=== PATIENT | female | born 1950 | race Caucasian/White ===

== ENCOUNTER 2016-10-25 20:47 | Emergency (ER) | payer BC ==
--- NOTE | 2016-10-25 20:52 | ER Document Report ---
ED Medical Screen (RME) - General Stated Complaint: BACK PAIN Notes: Is a 66-year-old female who is currently in the midst of a workup for potential lesion in the brain through Energy she has a headache back pain and dyspnea today must bring her to the emergency room I greeted and performed a rapid initial assessment of this patient. Comprehensive ED assessment and evaluation of the patient, analysis of test results and completion of the medical decision making process will be conducted by additional ED providers. TRAVEL OUTSIDE OF THE [place] IN LAST 30 DAYS: No - Related Data Allergies/Adverse Reactions: Sulfa (Sulfonamide Antibiotics) Allergy (Severe, Verified 03/06/16 22:35) heart beats very fast NSAIDS (Non-Steroidal Anti-Inflamma [Nsaids] Allergy (Verified 03/06/16 22:35) Past Medical History - Social History Family history: None - Past Medical History Cardiac Medical History: Reports: Hx Hypercholesterolemia Pulmonary Medical History: Reports: Hx Asthma, Hx COPD Denies: Hx Tuberculosis Endocrine Medical History: Reports: Hx Hypothyroidism - After having her thyroid removed for cancer in October, Renal/ Medical History: Reports: Hx Kidney Stones Malignancy Medical History: Reports: Hx Breast Cancer GI Medical History: Reports: Hx Gastroesophageal Reflux Disease, Hx Hiatal Hernia Musculoskeltal Medical History: Reports Hx Arthritis, Reports Hx Multiple Sclerosis - per pt although the lp'S were negative Psychiatric Medical History: Reports: Hx Anxiety - This is based on reviewing her multiple ER visits. Past Surgical History: Reports: Hx Appendectomy, Hx Bowel Surgery, Hx Section, Hx Cholecystectomy, Hx Hysterectomy, Hx Mastectomy, Hx Orthopedic Surgery - left rotator, Hx Thyroid Surgery, Hx Urinary Tract Surgery - BLADDER POLYPS REMOVED - Immunizations Hx Diphtheria, Pertussis, Tetanus Vaccination: Yes
[2016-10-25] MEDS ORDERED: NORMAL SALINE 1000 ML 100 ML IV PRN (20:53)
[2016-10-25 21:18] LABS: APPEARANCE,URINE CLEAR; BILIRUBIN,URINE NEGATIVE (NEGATIVE); GLUCOSE, URINE NEGATIVE (NEGATIVE); KETONES,URINE NEGATIVE (NEGATIVE); LEUKOCYTE ESTERASE,URINE SMALL (NEGATIVE); NITRITE,URINE NEGATIVE (NEGATIVE); PROTEIN,URINE NEGATIVE (NEGATIVE); UROBILINOGEN,URINE NEGATIVE mg/dL (<2.0)
[2016-10-25 21:27] LABS: ABSOLUTE EOSINOPHILS # (AUTO) 0.3 10^3/uL (0.0-0.6); ABSOLUTE LYMPHOCYTES (AUTO) 2.8 10^3/uL (0.5-4.7); ABSOLUTE MONOCYTES (AUTO) 0.4 10^3/uL (0.1-1.4); ABSOLUTE NEUT (AUTO) 2.3 10^3/uL (1.7-8.2); BASOPHILS % (AUTO) 0.8 % (0-2); HEMATOCRIT 43.1 % (36.0-47.0); HEMOGLOBIN 14.3 g/dL (12.0-15.5); HGB HCT DIFFERENCE -0.2; LYMPHOCYTES % (AUTO) 48.1 % (13-45); MEAN CORPUSCULAR HEMOGLOBIN 31.6 pg (27.0-33.4); MEAN CORPUSCULAR HGB CONC 33.3 g/dL (32.0-36.0); MEAN CORPUSCULAR VOLUME 95 fl (80-97); MONOCYTES % (AUTO) 6.9 % (3-13); RED BLOOD COUNT 4.55 10^6/uL (3.72-5.28); RED CELL DISTRIBUTION WIDTH 13.4 % (11.5-14.0); SEGMENTED NEUTROPHILS % (AUTO) 39.2 % (42-78); WHITE BLOOD COUNT 5.9 10^3/uL (4.0-10.5)
[2016-10-25 21:32] LABS: ALANINE AMINOTRANSFERASE 36 U/L (9-52); ALKALINE PHOSPHATASE 89 U/L (38-126); ANION GAP 11 (5-19); ASPARTATE AMINO TRANSFERASE 29 U/L (14-36); BILIRUBIN,TOTAL 0.4 mg/dL (0.2-1.3); BLOOD UREA NITROGEN 32 mg/dL (7-20); CALCIUM 9.8 mg/dL (8.4-10.2); CARBON DIOXIDE 27 mmol/L (22-30); CHLORIDE 105 mmol/L (98-107); CREATININE RESULT 0.91 mg/dL (0.52-1.25); GLUCOSE 86 mg/dL (75-110); POTASSIUM 4.5 mmol/L (3.6-5.0); SODIUM 143.4 mmol/L (137-145); TOTAL PROTEIN 6.7 g/dL (6.3-8.2)
--- NOTE | 2016-10-25 22:05 | ER Document Report ---
ED General - General Chief Complaint: Back Pain Stated Complaint: BACK PAIN Time seen by provider: 22:05 Mode of Arrival: Ambulatory Information source: Patient TRAVEL OUTSIDE OF THE [place] IN LAST 30 DAYS: No - HPI Patient complains to provider of: back pain, sinus congestion Onset: Other - Chronic Onset/Duration: Persistent Quality of pain: Achy Severity: Moderate Pain Level: 3 Associated symptoms: Body/muscle aches, Chills, Sinus pain/drainage, Other - Cold legs Exacerbated by: Denies Relieved by: Denies Similar symptoms previously: Yes Recently seen / treated by doctor: Yes Notes: Patient is a 66-year-old female who presents to the emergency room with multiple complaints, none of which appear to be acute in nature, she reports that she has been followed by a neurologist at [place] and was diagnosed with likely MS a proximally one year ago but is not currently on any medication for this, she reports that 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, she reports that she has chronic sinus congestion and had an appointment to see an ENT this past Thursday which was canceled due to inclement weather, she reports a history of multiple UTIs, history of [place] spotted fever, is requesting several tests to be performed on her tonight including a Lyme titer, an ESR, CRP, and a spinal tap, stating that the neurologist did not do any of these tests on her previously and she is unsure why, patient states that she is "on the verge of a breakdown", she also reports that she has a follow-up with a urologist this week, at time of initial evaluation and in the triage area patient was requesting to be transferred to [place] immediately, however when I explained to her that that could not be done at the present time until an official diagnosis warranting transfer was made she was somewhat more cooperative, patient does report a history of multiple previous visits to specialist for these complaints and reports that they have been going on for over a year now, patient also reports that she feels as though she has decreased circulation to her lower extremities because she is always cold and she feels her legs are cold - Related Data Allergies/Adverse Reactions: Sulfa (Sulfonamide Antibiotics) Allergy (Severe, Verified 03/06/16 22:35) heart beats very fast NSAIDS (Non-Steroidal Anti-Inflamma [Nsaids] Allergy (Verified 03/06/16 22:35) Past Medical History - General Information source: Patient - Social History Smoking Status: Former Smoker Chew tobacco use (# tins/day): No Frequency of alcohol use: Rare Drug Abuse: None Family History: Reviewed & Not Pertinent Patient has suicidal ideation: No Patient has homicidal ideation: No - Past Medical History Cardiac Medical History: Reports: Hx Hypercholesterolemia Pulmonary Medical History: Reports: Hx Asthma, Hx COPD Denies: Hx Tuberculosis Endocrine Medical History: Reports: Hx Hypothyroidism - After having her thyroid removed for cancer in October, Renal/ Medical History: Reports: Hx Kidney Stones. Denies: Hx Peritoneal Dialysis Malignancy Medical History: Reports: Hx Breast Cancer GI Medical History: Reports: Hx Gastroesophageal Reflux Disease, Hx Hiatal Hernia Musculoskeltal Medical History: Reports Hx Arthritis, Reports Hx Multiple Sclerosis - per pt although the lp'S were negative Psychiatric Medical History: Reports: Hx Anxiety - This is based on reviewing her multiple ER visits. Past Surgical History: Reports: Hx Appendectomy, Hx Bowel Surgery, Hx Section, Hx Cholecystectomy, Hx Hysterectomy, Hx Mastectomy, Hx Orthopedic Surgery - left rotator, Hx Thyroid Surgery, Hx Urinary Tract Surgery - BLADDER POLYPS REMOVED - Immunizations Hx Diphtheria, Pertussis, Tetanus Vaccination: Yes Hx Pneumococcal Vaccination: 10/02/10 Review of Systems - Review of Systems Constitutional: Chills, Malaise EENT: See HPI Cardiovascular: No symptoms reported. denies: Chest pain Respiratory: No symptoms reported. denies: Short of breath Gastrointestinal: No symptoms reported. denies: Nausea, Vomiting Genitourinary: Dysuria, Frequency Female Genitourinary: No symptoms reported Musculoskeletal: See HPI, Back pain Skin: No symptoms reported Hematologic/Lymphatic: No symptoms reported Neurological/Psychological: No symptoms reported -: Yes All other systems reviewed and negative Physical Exam - Vital signs Vitals: Temp Pulse Resp BP Pulse Ox 97.1 F 51 L 18 95/55 L 97 10/25/16 23:45 10/25/16 23:45 10/25/16 23:45 10/25/16 23:45 10/25/16 23:45 Interpretation: Hypotensive, Bradycardic - General General appearance: Appears well, Alert In distress: None Notes: Tearful - HEENT Head: Normocephalic, Atraumatic Eyes: Normal Conjunctiva: Normal Extraocular movements intact: Yes Eyelashes: Normal Pupils: PERRL Mucous membranes: Normal - Respiratory Respiratory status: No respiratory distress Chest status: Nontender Breath sounds: Normal Chest palpation: Normal - Cardiovascular Rhythm: Regular Heart sounds: Normal auscultation Murmur: No - Abdominal Inspection: Normal Distension: No distension Bowel sounds: Normal Tenderness: Nontender Organomegaly: No organomegaly - Back Back: Normal, Nontender - Extremities General upper extremity: Normal inspection, Nontender, Normal color, Normal ROM , Normal temperature General lower extremity: Normal inspection, Nontender, Normal color, Normal ROM , Normal temperature, Normal weight bearing. No: Edema, Scott's sign Notes: Distal sensation and motor is intact with 2+ DP pulses bilaterally, feet are warm and dry, brisk capillary refill - Neurological Neuro grossly intact: Yes Cognition: Normal Orientation: AAOx4 Ricardo Coma Scale Eye Opening: Spontaneous Ricardo Coma Scale Verbal: Oriented Dardanelle Coma Scale Motor: Obeys Commands Ricardo Coma Scale Total: 15 Speech: Normal Motor strength normal: LUE, RUE, LLE, RLE Sensory: Normal - Psychological Associated symptoms: Tangential speech, Tearful - Skin Skin Temperature: Warm Skin Moisture: Dry Skin Color: Normal Course - Re-evaluation Re-evalutation: 10/26/16 01:01 Patient physical exam findings and laboratory findings unremarkable, her symptoms appear to be chronic in nature as she reports they've been going on for at least a year and she has seen additional list at [place] for these concerns , although she is concerned that certain tests were not performed by her neurologist I do not see an emergent need to perform some of these tests, including a lumbar puncture, in the emergency room, her labs were discussed with her and she was provided with a copy of the results for follow-up with her primary care provider and her specialists, and advised to return if symptoms worsen, patient acknowledges understanding and agreement with this plan - Vital Signs Vital signs: Temp Pulse Resp BP Pulse Ox 97.1 F 51 L 18 95/55 L 97 10/25/16 23:45 10/25/16 23:45 10/25/16 23:45 10/25/16 23:45 10/25/16 23:45 - Laboratory Result Diagrams: 10/25/16 21:00 10/25/16 21:00 Laboratory results interpreted by me: 10/25/16 10/25/16 10/25/16 21:00 21:00 21:05 Seg Neutrophils % 39.2 L Lymphocytes % 48.1 H BUN 32 H Ur Leukocyte Esterase SMALL H Urine Ascorbic Acid 40 H Discharge - Discharge Clinical Impression: Sinus congestion Back pain Qualifiers: Back pain location: thoracic back pain Chronicity: acute Back pain laterality: bilateral Qualified Code(s): M54.6 - Pain in thoracic spine Condition: Stable Disposition: HOME, SELF-CARE Instructions: Ice Packs ([facility]), Warm Packs ([facility]) Additional Instructions: Follow up with your primary care provider and your specialists in one to 2 days. Return to the emergency room immediately if symptoms worsen or any additional concerns. Referrals: CARLENE BAKER MD [Primary Care Provider] - Follow up as needed
[2016-10-25 23:48] VITALS: BP 95/55
== END 2016-10-25 23:45 | disposition home or self-care (01) ==
LOC: ER 20:47
DX: M54.6 Pain in thoracic spine (principal); R09.81 Nasal congestion; M79.1 Myalgia; R53.81 Other malaise; E78.00 Pure hypercholesterolemia, unspecified; J44.9 Chronic obstructive pulmonary disease, unspecified; J45.909 Unspecified asthma, uncomplicated; E89.0 Postprocedural hypothyroidism; K21.9 Gastro-esophageal reflux disease without esophagitis; Z87.891 Personal history of nicotine dependence; Z88.2 Allergy status to sulfonamides; Z90.49 Acquired absence of other specified parts of digestive tract; Z90.710 Acquired absence of both cervix and uterus; Z90.10 Acquired absence of unspecified breast and nipple
CPT/HCPCS: 36415; 80053; 81001; 85025; 85652; 86140; 99283

== ENCOUNTER 2016-11-23 01:25 | Emergency (ER) | payer BC ==
--- NOTE | 2016-11-23 02:51 | ER Document Report ---
ED General - General Chief Complaint: Headache >24 hrs old Stated Complaint: HEADACHE Notes: Patient is a 66-year-old female who presents with concerns of a "brain infection or something wrong in my head ". Patient is a very difficult historian, struggles to provide an accurate history as to why she is actually in the emergency department tonight. The symptoms have been ongoing for several years but got worse in the last 2 months. She has been evaluated by neurology and ENT at [place] and has also been seen by her primary care doctor for these concerns. She has also been evaluated in our emergency department on multiple occasions for similar complaint. She is requesting a lumbar puncture and brain biopsy. She denies anything in particular improves or worsens her symptoms. She denies any recent fever, nausea, or vomiting. TRAVEL OUTSIDE OF THE [place] IN LAST 30 DAYS: No - Related Data Allergies/Adverse Reactions: Sulfa (Sulfonamide Antibiotics) Allergy (Severe, Verified 03/06/16 22:35) heart beats very fast NSAIDS (Non-Steroidal Anti-Inflamma [Nsaids] Allergy (Verified 03/06/16 22:35) Past Medical History - General Information source: Patient - Social History Smoking Status: Never Smoker Chew tobacco use (# tins/day): No Frequency of alcohol use: None Drug Abuse: None Lives with: Family Family History: Reviewed & Not Pertinent Patient has suicidal ideation: No Patient has homicidal ideation: No - Past Medical History Cardiac Medical History: Reports: Hx Hypercholesterolemia Pulmonary Medical History: Reports: Hx Asthma, Hx COPD Denies: Hx Tuberculosis Endocrine Medical History: Reports: Hx Hypothyroidism - After having her thyroid removed for cancer in October, Renal/ Medical History: Reports: Hx Kidney Stones. Denies: Hx Peritoneal Dialysis Malignancy Medical History: Reports: Hx Breast Cancer GI Medical History: Reports: Hx Gastroesophageal Reflux Disease, Hx Hiatal Hernia Musculoskeltal Medical History: Reports Hx Arthritis, Reports Hx Multiple Sclerosis - per pt although the lp'S were negative Psychiatric Medical History: Reports: Hx Anxiety - This is based on reviewing her multiple ER visits. Past Surgical History: Reports: Hx Appendectomy, Hx Bowel Surgery, Hx Section, Hx Cholecystectomy, Hx Hysterectomy, Hx Mastectomy, Hx Orthopedic Surgery - left rotator, Hx Thyroid Surgery, Hx Urinary Tract Surgery - BLADDER POLYPS REMOVED - Immunizations Hx Diphtheria, Pertussis, Tetanus Vaccination: Yes Hx Pneumococcal Vaccination: 12/22/10 Review of Systems - Review of Systems Notes: Constitutional: Negative for fever. HENT: Negative for sore throat. Eyes: Negative for visual changes. Cardiovascular: Negative for chest pain. Respiratory: Negative for shortness of breath. Gastrointestinal: Negative for abdominal pain, vomiting or diarrhea. Genitourinary: Negative for dysuria. Musculoskeletal: Negative for back pain. Skin: Negative for rash. Neurological: Positive for headaches, negative for weakness or numbness. 10 point ROS negative except as marked above and in HPI. Physical Exam - Vital signs Vitals: Temp Pulse Resp BP Pulse Ox 97.7 F 62 16 118/65 99 11/23/16 01:32 11/23/16 01:32 11/23/16 01:32 11/23/16 01:32 11/23/16 01:32 Interpretation: Normal Notes: PHYSICAL EXAMINATION: GENERAL: Well-appearing, well-nourished and in no acute distress. HEAD: Atraumatic, normocephalic. EYES: Pupils equal round and reactive to light, extraocular movements intact, sclera anicteric, conjunctiva are normal. ENT: nares patent, oropharynx clear without exudates. Moist mucous membranes. NECK: Normal range of motion, supple without lymphadenopathy LUNGS: Breath sounds clear to auscultation bilaterally and equal. No wheezes rales or rhonchi. HEART: Regular rate and rhythm without murmurs ABDOMEN: Soft, nontender, normoactive bowel sounds. No guarding, no rebound. No masses appreciated. EXTREMITIES: Normal range of motion, no pitting or edema. No cyanosis. NEUROLOGICAL:Face symmetric. Tongue protrudes midline. Extraocular motions intact. Pupils are 2 mm and equally reactive. Normal speech, normal gait. 5 out of 5 strength in both the distal and proximal upper and lower extremities bilaterally. Sensation is grossly intact throughout. Finger to nose testing normal. Pronator drift normal. PSYCH: Extremely anxious, tremulous. SKIN: Warm, Dry, normal turgor, no rashes or lesions noted. Course - Re-evaluation Re-evalutation: 11/23/16 03:45 Patient presents with concerns of sinus pressure and "something being wrong in my head". Patient is highly anxious at time of evaluation and is already had an extensive evaluation by neurology, ENT, and her primary care physician both at [facility] and here locally. Her evaluation which has included multiple sinus scopes, MRIs of the head, and laboratories has all continue to be completely unremarkable. Patient is extraordinarily anxious, frequently listing rare diagnoses as possible considerations for her symptoms which she struggles to clarify. She is requesting a lumbar puncture and a brain biopsy tonight. Her vitals at time of arrival are unremarkable in her neurologic assessment is within normal limits. I do not suspect an acute meningitis, encephalitis, subarachnoid hemorrhage, multiple sclerosis, intracranial mass, or any other acute life-threatening pathology at this time based on her clinical history of years of the above symptoms. I spent greater than 30 minutes at the patient's bedside encouraging her to continue to follow with her primary care team and consider being open to a possible psychiatric origin of her symptoms.At this time will discharge with return precautions and follow-up recommendations. Verbal discharge instructions given a the bedside and opportunity for questions given. Medication warnings reviewed. Patient is in agreement with this plan and has verbalized understanding of return precautions and the need for primary care follow-up in the next 24-72 hours. - Vital Signs Vital signs: Temp Pulse Resp BP Pulse Ox 97.4 F 68 16 124/64 98 11/23/16 02:59 11/23/16 02:59 11/23/16 02:59 11/23/16 02:59 11/23/16 02:59 Discharge - Discharge Clinical Impression: Hypercholesterolemia Headache Qualifiers: Headache type: unspecified Headache chronicity pattern: chronic headache Intractability: intractable Qualified Code(s): R51 - Headache Condition: Good Disposition: HOME, SELF-CARE Additional Instructions: Please return to the emergency room immediately if you experience any concerning symptoms including high fevers, severe headache, chest pain, difficulty breathing, abdominal pain, slurred speech, numbness or weakness in your arms or legs, or any other symptom that concerns you. Referrals: CARLENE BAKER MD [Primary Care Provider] - Follow up as needed
[2016-11-23 03:00] VITALS: BP 124/64
== END 2016-11-23 02:59 | disposition home or self-care (01) ==
LOC: ER 01:25
DX: R51 Headache (principal); E78.00 Pure hypercholesterolemia, unspecified
CPT/HCPCS: 99283

== ENCOUNTER 2016-12-31 08:02 | Day surgery (SDC) | payer BC ==
[2016-12-31 09:11] LABS: PARTIAL THROMBOPLASTIN TIME 27.4 SEC (23.5-35.8)
[2016-12-31] MEDS ORDERED: MIDAZOLAM 2 MG/2 ML INJ ONE (09:46)
[2016-12-31] MEDS ORDERED: FENTANYL CITRATE INJ/PF 100 MCG/2 ML AMPUL ONE (09:48)
[2016-12-31 11:27] LABS: APPEARANCE ALL TUBES CLEAR
[2016-12-31 11:28] LABS: GLUCOSE,CSF 50 mg/dL (40-70); RBC DILUENT USED NONE USED; RBC DILUTION FACTOR 1; RBC SIDE 1 206; RBC SIDE 2 190; TOTAL RBC SQUARES COUNTED 225; WHITE BLOOD CELL,CSF 3 /uL (0-5)
[2016-12-31 11:29] LABS: APPEARANCE ALL TUBES CLEAR; RBC DILUENT USED NONE USED; RBC DILUTION FACTOR 1; RBC SIDE 1 3; RBC SIDE 2 3; TOTAL RBC SQUARES COUNTED 225; WHITE BLOOD CELL,CSF 1 /uL (0-5)
[2016-12-31 15:32] VITALS: BP 112/56
[2017-01-03 02:37] LABS: CSF IGG INDEX 0.6 (0.0-0.7); IGG SYNTHESIS RATE CSF 1.4 mg/day (-9.9 TO +3.3); IGG/ALBUMIN RATIO CSF 0.11 (0.00-0.25); IMMUNOGLOBULIN G CSF 3.9 mg/dL (0.0-8.6)
[2017-01-05 07:17] LABS: ALBUMIN SERUM 4.2 g/dL (3.6-4.8)
== END 2016-12-31 13:15 | disposition home or self-care (01) ==
LOC: RAD 08:02
PROVIDERS: ATTEND Psychiatry & Neurology Neurology
PROC: 009U3ZX Drainage of Spinal Canal, Percutaneous Approach, Diagnostic (ICD-10-PCS; principal; 2016-12-31)
DX: G37.9 Demyelinating disease of central nervous system, unspecified (principal); Z88.2 Allergy status to sulfonamides; Z88.1 Allergy status to other antibiotic agents
CPT/HCPCS: 36415; 87070; 87205; 83916 ×2; 85610; 85730; 89050; 82945; 84157; 82784; 77003; 62270; J2250; J3010

== ENCOUNTER → 2017-01-05 | Outpatient (CLI) | payer BC, MEDICARE | LOC: RAD 09:10 | PROVIDERS: ATTEND Physician Assistant | DX: M54.9 Dorsalgia, unspecified (principal); M47.894 Other spondylosis, thoracic region | CPT/HCPCS: 72146; 72148 ==

== ENCOUNTER 2017-01-06 11:16 | Emergency (ER) | payer BC ==
--- NOTE | 2017-01-06 11:54 | ER Document Report ---
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 She is followed by a doctor at [place]. She had an MRI yesterday of the thoracic and lumbar spine here at [facility]. Complains of severe back pain that started yesterday, worse in the lower back. Feels like her back is spasming when she moves in certain ways. Denies loss of control of bowels or bladder. Patient also wants to be checked for abdomen swelling for about 5 months. She has a history of problems with constipation. Last bowel movement was yesterday. I have greeted and performed a rapid initial assessment of this patient. A comprehensive ED assessment and evaluation of the patient, analysis of test results and completion of the medical decision making process will be conducted by additional ED providers. TRAVEL OUTSIDE OF THE [place] IN LAST 30 DAYS: No - Related Data Allergies/Adverse Reactions: Sulfa (Sulfonamide Antibiotics) Allergy (Severe, Verified 03/06/16 22:35) heart beats very fast NSAIDS (Non-Steroidal Anti-Inflamma [Nsaids] Allergy (Verified 03/06/16 22:35) ciprofloxacin [From Cipro] Adverse Reaction (Verified 12/31/16 09:16) levofloxacin [From Levaquin] Adverse Reaction (Verified 12/31/16 09:16) nitrofurantoin Adverse Reaction (Verified 12/31/16 09:16) Past Medical History - Social History Family history: None - Past Medical History Cardiac Medical History: Reports: Hx Coronary Artery Disease - cholesterol, Hx Hypercholesterolemia Denies: Hx Heart Attack, Hx Hypertension Pulmonary Medical History: Reports: Hx COPD Denies: Hx Asthma, Hx Bronchitis, Hx Pneumonia, Hx Tuberculosis Neurological Medical History: Denies: Hx Cerebrovascular Accident, Hx Seizures Endocrine Medical History: Reports: Hx Hypothyroidism - After having her thyroid removed for cancer in October, Renal/ Medical History: Reports: Hx Kidney Stones. Denies: Hx Peritoneal Dialysis Malignancy Medical History: Reports: Hx Breast Cancer GI Medical History: Reports: Hx Gastroesophageal Reflux Disease, Hx Hiatal Hernia Musculoskeltal Medical History: Reports Hx Arthritis, Reports Hx Multiple Sclerosis - per pt although the lp'S were negative Psychiatric Medical History: Reports: Hx Anxiety - This is based on reviewing her multiple ER visits. Past Surgical History: Reports: Hx Appendectomy, Hx Bowel Surgery, Hx Section, Hx Cholecystectomy, Hx Hysterectomy, Hx Mastectomy, Hx Orthopedic Surgery - left rotator, Hx Thyroid Surgery, Hx Urinary Tract Surgery - BLADDER POLYPS REMOVED - Immunizations Hx Diphtheria, Pertussis, Tetanus Vaccination: Yes Physical Exam - Vital signs Vitals: Temp Pulse Resp BP Pulse Ox 98.2 F 70 20 107/59 L 98 01/06/17 11:53 01/06/17 11:53 01/06/17 11:53 01/06/17 11:53 01/06/17 11:53 - Back Back: Tender - lower back. Pt states pain radiates around to sides Course - Vital Signs Vital signs: Temp Pulse Resp BP Pulse Ox 98.2 F 70 20 107/59 L 98 01/06/17 11:53 01/06/17 11:53 01/06/17 11:53 01/06/17 11:53 01/06/17 11:53
[2017-01-06] MEDS ORDERED: ACETAMINOPHEN 325 MG TABLET PO ONE (12:01)
[2017-01-06] MEDS ORDERED: OXYCODONE-ACETAMINOPHEN 5-325 MG TABLET PO ONE (16:49)
--- NOTE | 2017-01-06 18:18 | ER Document Report ---
ED General - General Chief Complaint: Back Pain Stated Complaint: BACK PAIN Time seen by provider: 18:13 Mode of Arrival: Ambulatory Information source: Patient Notes: This is a 66-year-old female that presents to the emergency room with acute low back pain. The patient does have a history of chronic back pain and had an MRI yesterday. She states that after the MRI, she was shifting in bed and had sudden, acute lower back pain. She denies any urinary retention or incontinence. She does state she's been mildly constipated for the past week. She denies any fever. Past medical history: Osteoarthritis Postconcussive syndrome with strabismus Addendum no entrapment TIA Undergoing workup for MS Reported pain lesion on MRI July 2016 (followed by neurology at [facility]). TRAVEL OUTSIDE OF THE [place] IN LAST 30 DAYS: No - HPI Onset: Yesterday Onset/Duration: Sudden Quality of pain: Dull Severity: Moderate Pain Level: 4 Associated symptoms: denies: Chills, Fever, Shortness of breath Exacerbated by: Movement Relieved by: Remaining still Similar symptoms previously: No Recently seen / treated by doctor: No - Related Data Allergies/Adverse Reactions: Sulfa (Sulfonamide Antibiotics) Allergy (Severe, Verified 03/06/16 22:35) heart beats very fast NSAIDS (Non-Steroidal Anti-Inflamma [Nsaids] Allergy (Verified 03/06/16 22:35) ciprofloxacin [From Cipro] Adverse Reaction (Verified 12/31/16 09:16) levofloxacin [From Levaquin] Adverse Reaction (Verified 12/31/16 09:16) nitrofurantoin Adverse Reaction (Verified 12/31/16 09:16) Past Medical History - General Information source: Patient - Social History Smoking Status: Former Smoker Cigarette use (# per day): No Chew tobacco use (# tins/day): No Frequency of alcohol use: None Drug Abuse: None Lives with: Alone Family History: Reviewed & Not Pertinent Patient has suicidal ideation: No Patient has homicidal ideation: No - Past Medical History Cardiac Medical History: Reports: Hx Coronary Artery Disease - cholesterol, Hx Hypercholesterolemia Denies: Hx Heart Attack, Hx Hypertension Pulmonary Medical History: Reports: Hx COPD Denies: Hx Asthma, Hx Bronchitis, Hx Pneumonia, Hx Tuberculosis Neurological Medical History: Denies: Hx Cerebrovascular Accident, Hx Seizures Endocrine Medical History: Reports: Hx Hypothyroidism - After having her thyroid removed for cancer in October, Renal/ Medical History: Reports: Hx Kidney Stones. Denies: Hx Peritoneal Dialysis Malignancy Medical History: Reports: Hx Breast Cancer GI Medical History: Reports: Hx Gastroesophageal Reflux Disease, Hx Hiatal Hernia Musculoskeltal Medical History: Reports Hx Arthritis, Reports Hx Multiple Sclerosis - per pt although the lp'S were negative Psychiatric Medical History: Reports: Hx Anxiety - This is based on reviewing her multiple ER visits. Past Surgical History: Reports: Hx Appendectomy, Hx Bowel Surgery, Hx Section, Hx Cholecystectomy, Hx Hysterectomy, Hx Mastectomy, Hx Orthopedic Surgery - left rotator, Hx Thyroid Surgery, Hx Urinary Tract Surgery - BLADDER POLYPS REMOVED - Immunizations Hx Diphtheria, Pertussis, Tetanus Vaccination: Yes Hx Pneumococcal Vaccination: 10/02/10 Review of Systems - Review of Systems Notes: Review of systems: Constitutional: Denies fever, chills. EENT: Denies ear pain, sinus tenderness, throat pain, throat swelling. Cardiovascular: Denies chest pain, palpitations, dyspnea or edema. Respiratory: Denies wheezing, cough, hemoptysis. Abdomen: Positive for constipation and bloating. Denies abdominal pain, nausea , vomiting, diarrhea. Denies BRBPR or melena. Genitourinary: Denies dysuria, pyuria, hematuria, flank pain. Musculoskeletal: See H&P. Neurologic: Denies headache, photophobia, neck stiffness, weakness. Denies loss of bowel or bladder function. Denies saddle anesthesia. Skin: Denies rash, lesions. Physical Exam - Vital signs Vitals: Temp Pulse Resp BP Pulse Ox 98.2 F 70 20 107/59 L 98 01/06/17 11:53 01/06/17 11:53 01/06/17 11:53 01/06/17 11:53 01/06/17 11:53 Notes: Physical exam: GENERAL: 66-year-old female, alert and oriented 3, moderate distress when moving her thorax. HEAD: Atraumatic, normocephalic. EYES: Pupils equal round and reactive to light, extraocular movements intact, sclera anicteric, conjunctiva are normal. ENT:Moist mucous membranes. NECK: Normal range of motion, supple without lymphadenopathy LUNGS: Breath sounds clear to auscultation bilaterally and equal. No wheezes rales or rhonchi. HEART: Regular rate and rhythm without murmurs, rubs or gallops. ABDOMEN: Soft, normoactive bowel sounds. No tenderness to palpation. No guarding, no rebound. No masses appreciated. Back: Patient does have paraspinal tenderness on the lower right lumbar region without any obvious swelling. There is no bony tenderness. EXTREMITIES: Normal range of motion, no pitting or edema. No clubbing or cyanosis. NEUROLOGICAL: Cranial nerves II through XII grossly intact. Normal speech, motor to the lower extremities is good. It does initiate pain to the low back PSYCH: Normal mood, normal affect. SKIN: Warm, Dry, normal turgor, no rashes or lesions noted. Course - Vital Signs Vital signs: Temp Pulse Resp BP Pulse Ox 98.2 F 70 20 107/59 L 98 01/06/17 16:40 01/06/17 16:40 01/06/17 16:40 01/06/17 16:40 01/06/17 16:40 Discharge - Discharge Clinical Impression: acute low back pain Condition: Stable Disposition: HOME, SELF-CARE Instructions: Oral Narcotic Medication ([facility]) Additional Instructions: Recommendations: Take the pain medicines as prescribed (Percocet): This is a narcotic, take an [id number] stool softener and see the narcotic instruction sheet. Robaxin is for muscle relaxation. The first time he take the Robaxin, don't take it at the same time as the Percocet. Overall Medrol Dosepak (this is the steroid) if you have no relief from the pain medicine above. Follow-up with Dr. Baker this week. Follow-up as planned with your neurologist at [facility]. The pain medicine you're taking prescribed as a narcotic. There are several important things you should know about this medicine: 1. This medicine contains Tylenol: It is important that you do not take Tylenol (or acetaminophen) while on this medicine. Tylenol is metabolized by the liver and taking too much Tylenol (acetaminophen) can lay to liver damage and even liver failure. 2. Taking narcotics for too long can lead to physical and mental dependence. Take this medicine only if really needed and in the lowest quantity to achieve pain relief. 3. Do not drink alcohol while on this medicine. Alcohol interacts with narcotics and the combination can be dangerous. 4. Do not drive or operate machinery while on this medicine. 5. Narcotics do cause constipation, so drink plenty of fluids and daily stool softeners. Prescriptions: Methocarbamol [Robaxin 500 mg Tablet] 500 mg PO BID #30 tablet Methylprednisolone [Medrol 4 mg Dosepack 21 Tab/Pack] 4 mg PO ASDIR PRN #21 tab.ds.pk PRN Reason: Oxycodone HCl/Acetaminophen [Percocet 5-325 mg Tablet] 1 - 2 tab PO ASDIR PRN # 25 tablet PRN Reason: Referrals: CARLENE BAKER MD [Primary Care Provider] - Follow up in 3-5 days
[2017-01-06 18:53] VITALS: BP 89/54
== END 2017-01-06 18:58 | disposition home or self-care (01) ==
LOC: ER 11:16
DX: M54.5 Low back pain (principal); K59.00 Constipation, unspecified; I25.10 Atherosclerotic heart disease of native coronary artery without angina pectoris; Z98.890 Other specified postprocedural states; Z88.2 Allergy status to sulfonamides; Z88.8 Allergy status to other drugs, medicaments and biological substances; Z87.891 Personal history of nicotine dependence; Z85.3 Personal history of malignant neoplasm of breast
CPT/HCPCS: 74022; 99283

== ENCOUNTER → 2017-02-23 | Outpatient (CLI) | payer BC | LOC: WI 08:12 | PROVIDERS: ATTEND Family Medicine | DX: Z12.31 Encounter for screening mammogram for malignant neoplasm of breast (principal); M81.0 Age-related osteoporosis without current pathological fracture | CPT/HCPCS: 77063; 77080; G0202; 77067 ==

== ENCOUNTER 2017-04-05 10:13 | Emergency (ER) | payer BC ==
[2017-04-05 10:17] VITALS: BP 107/40
[2017-04-05] MEDS ORDERED: CLINDAMYCIN HCL 150 MG CAPSULE PO ONE (11:10)
[2017-04-05] MEDS ORDERED: OXYCODONE-ACETAMINOPHEN 5-325 MG TABLET PO ONE (11:10)
[2017-04-05] MEDS ORDERED: HYDROCODONE/ACETAMINOPHEN 5-325 MG 6 TAB/DSPK PO PRN (11:10)
--- NOTE | 2017-04-05 11:17 | ER Document Report ---
ED ENT - General Chief Complaint: Sinus Pain Stated Complaint: COLD LIKE SYMPTOMS Time Seen by Provider: 04/05/17 10:57 Mode of Arrival: Ambulatory Information source: Patient Notes: pt is a 66 year old female who presents to the ER today for sinus infection x 1 month. She states her face feels pressured and that it is travelled down into her gums on her left side. She denies swelling of the gums or drainage, tooth pain in a specific area. She states that she has been to ENT and opthalmology during this time and that they diagnosed her with "chronic runny nose and inflammation of sinuses." She has not received an antibiotic during this illness. She denies fever but admits to chills, denies n/v/d/cough, wheezing, sob. TRAVEL OUTSIDE OF THE [place] IN LAST 30 DAYS: No - Related Data Allergies/Adverse Reactions: Sulfa (Sulfonamide Antibiotics) Allergy (Severe, Verified 03/06/16 22:35) heart beats very fast latex Allergy (Verified 04/05/17 10:15) NSAIDS (Non-Steroidal Anti-Inflamma [Nsaids] Allergy (Verified 03/06/16 22:35) ciprofloxacin [From Cipro] Adverse Reaction (Verified 12/31/16 09:16) levofloxacin [From Levaquin] Adverse Reaction (Verified 12/31/16 09:16) nitrofurantoin Adverse Reaction (Verified 12/31/16 09:16) Past Medical History - General Information source: Patient - Social History Smoking Status: Unknown if Ever Smoked Family History: Reviewed & Not Pertinent Patient has suicidal ideation: No Patient has homicidal ideation: No - Past Medical History Cardiac Medical History: Reports: Hx Coronary Artery Disease - cholesterol, Hx Hypercholesterolemia Denies: Hx Heart Attack, Hx Hypertension Pulmonary Medical History: Reports: Hx COPD Denies: Hx Asthma, Hx Bronchitis, Hx Pneumonia, Hx Tuberculosis Neurological Medical History: Denies: Hx Cerebrovascular Accident, Hx Seizures Endocrine Medical History: Reports: Hx Hypothyroidism - After having her thyroid removed for cancer in October, Renal/ Medical History: Reports: Hx Kidney Stones. Denies: Hx Peritoneal Dialysis Malignancy Medical History: Reports: Hx Breast Cancer GI Medical History: Reports: Hx Gastroesophageal Reflux Disease, Hx Hiatal Hernia Musculoskeltal Medical History: Reports Hx Arthritis, Reports Hx Multiple Sclerosis - per pt although the lp'S were negative Psychiatric Medical History: Reports: Hx Anxiety - This is based on reviewing her multiple ER visits. Past Surgical History: Reports: Hx Appendectomy, Hx Bowel Surgery, Hx Section, Hx Cholecystectomy, Hx Hysterectomy, Hx Mastectomy, Hx Orthopedic Surgery - left rotator, Hx Thyroid Surgery, Hx Urinary Tract Surgery - BLADDER POLYPS REMOVED - Immunizations Hx Diphtheria, Pertussis, Tetanus Vaccination: Yes Hx Pneumococcal Vaccination: 10/02/10 Review of Systems - Review of Systems Constitutional: See HPI EENT: See HPI Cardiovascular: No symptoms reported Respiratory: No symptoms reported Gastrointestinal: No symptoms reported Genitourinary: No symptoms reported Female Genitourinary: No symptoms reported Musculoskeletal: No symptoms reported Skin: No symptoms reported Hematologic/Lymphatic: No symptoms reported Neurological/Psychological: No symptoms reported Physical Exam - Vital signs Vitals: Temp Pulse Resp BP Pulse Ox 98.2 F 75 20 107/40 L 97 04/05/17 10:15 04/05/17 10:04/05/17 10:04/05/17 10:04/05/17 10:15 - Notes Notes: PHYSICAL EXAMINATION: GENERAL: mildly ill appearing, in no acute distress. HEAD: Atraumatic, normocephalic. EYES: Pupils equal round and reactive to light, extraocular movements intact, sclera anicteric, conjunctiva are normal. ENT: ear canals without erythema or foreign body, TMs with fluid behind bilaterally but no erythema or infection, nares with mucoid edema, oropharynx with pnd, no inflamed tonsils or exudates. Moist mucous membranes. maxillary sinuses extremely tender to palpation, no edema to gums or sign of induration or fluctuance, no specific gum tenderness NECK: Normal range of motion, supple without lymphadenopathy LUNGS: CTAB and equal. No wheezes rales or rhonchi. HEART: Regular rate and rhythm without murmurs EXTREMITIES: Normal range of motion, no pitting edema. No cyanosis. NEUROLOGICAL: Cranial nerves grossly intact. Normal sensory/motor exams. PSYCH: Normal mood, normal affect. SKIN: Warm, Dry, normal turgor, no rashes or lesions noted Course - Vital Signs Vital signs: Temp Pulse Resp BP Pulse Ox 98.2 F 75 20 107/40 L 97 04/05/17 10:04/05/17 10:04/05/17 10:04/05/17 10:04/05/17 10:15 Discharge - Discharge Clinical Impression: Sinusitis Qualifiers: Sinusitis location: maxillary Chronicity: acute Recurrence: non-recurrent Qualified Code(s): J01.00 - Acute maxillary sinusitis, unspecified Condition: Stable Disposition: HOME, SELF-CARE Additional Instructions: Return immediately for any new or worsening symptoms. Follow up with primary care provider, call tomorrow to make followup appointment. Prescriptions: Clindamycin HCl 300 mg PO TID #30 capsule Ibuprofen [Motrin 800 mg Tablet] 800 mg PO Q8H PRN #30 tab PRN Reason:
== END 2017-04-05 11:45 | disposition home or self-care (01) ==
LOC: ER 10:13
DX: J01.00 Acute maxillary sinusitis, unspecified (principal); I25.10 Atherosclerotic heart disease of native coronary artery without angina pectoris; J44.9 Chronic obstructive pulmonary disease, unspecified; Z88.2 Allergy status to sulfonamides; Z91.040 Latex allergy status; Z88.8 Allergy status to other drugs, medicaments and biological substances; Z85.3 Personal history of malignant neoplasm of breast
CPT/HCPCS: 99283

== ENCOUNTER 2017-06-22 08:50 | Emergency (ER) | payer BC, MEDICARE ==
--- NOTE | 2017-06-22 09:35 | ER Document Report ---
HPI - HPI Pain Level: 4 Notes: Patient is a 66-year-old female who presents to the ED complaining of an abscess to her left lower gumline 1 week. Pt states that the pain does not radiate and is described as a throb/occ sharp pain. She is still able to eat and drink w/o any difficulties. She has not had any drooling or trouble breathing. Pt has a h/o dental abscesses in the past. Denies any headache, fever, neck pain/stiffness, URI, sore throat, chest pain, palpitations, syncope , cough, shortness of breath, wheeze, dyspnea, abdominal pain, nausea/vomiting/ diarrhea, urinary retention, dysuria, hematuria, or rash. - ROS Notes: REVIEW OF SYSTEMS: CONSTITUTIONAL : Denies fever, chills, or sweats. Denies recent illness. EENT: Denies eye, ear, throat, or mouth pain or symptoms. Denies nasal or sinus congestion or discharge. Denies throat/tongue swelling or difficulty swallowing. see hpi. CARDIOVASCULAR: Denies chest pain. Denies palpitations or racing or irregular heart beat. Denies ankle edema. RESPIRATORY: Denies cough, cold, or chest congestion. Denies shortness of breath, difficulty breathing, or wheezing. GASTROINTESTINAL: Denies abdominal pain or distention. Denies nausea, vomiting , or diarrhea. Denies blood in vomitus, stools, or per rectum. Denies black, tarry stools. Denies constipation. GENITOURINARY: Denies difficulty urinating, painful urination, burning, frequency, blood in urine, or discharge. MUSCULOSKELETAL: Denies back or neck pain or stiffness. Denies joint pain or swelling. SKIN: Denies rash, lesions or sores. NEUROLOGICAL: Denies confusion or altered mental status. Denies passing out or loss of consciousness. Denies dizziness or lightheadedness. Denies headache. Denies weakness or paralysis or loss of use of either side. Denies problems with gait or speech. Denies sensory loss, numbness, or tingling. Denies seizures. PSYCHIATRIC: Denies anxiety or stress. Denies depression, suicidal ideation, or homicidal ideation. ALL OTHER SYSTEMS REVIEWED AND NEGATIVE. Dictation was performed using [employer] voice recognition software - REPRODUCTIVE Reproductive: DENIES: : - DERM Skin Color: Normal Past Medical History - Social History Smoking Status: Unknown if Ever Smoked Family History: Reviewed & Not Pertinent - Past Medical History Cardiac Medical History: Reports: Hx Coronary Artery Disease - cholesterol, Hx Hypercholesterolemia Denies: Hx Heart Attack, Hx Hypertension Pulmonary Medical History: Reports: Hx COPD Denies: Hx Asthma, Hx Bronchitis, Hx Pneumonia, Hx Tuberculosis Neurological Medical History: Denies: Hx Cerebrovascular Accident, Hx Seizures Endocrine Medical History: Reports: Hx Hypothyroidism - After having her thyroid removed for cancer in October, Renal/ Medical History: Reports: Hx Kidney Stones. Denies: Hx Peritoneal Dialysis Malignancy Medical History: Reports: Hx Breast Cancer GI Medical History: Reports: Hx Gastroesophageal Reflux Disease, Hx Hiatal Hernia Musculoskeltal Medical History: Reports Hx Arthritis, Reports Hx Multiple Sclerosis - per pt although the lp'S were negative Psychiatric Medical History: Reports: Hx Anxiety - This is based on reviewing her multiple ER visits. Past Surgical History: Reports: Hx Appendectomy, Hx Bowel Surgery, Hx Section, Hx Cholecystectomy, Hx Hysterectomy, Hx Mastectomy, Hx Orthopedic Surgery - left rotator, Hx Thyroid Surgery, Hx Urinary Tract Surgery - BLADDER POLYPS REMOVED - Immunizations Hx Diphtheria, Pertussis, Tetanus Vaccination: Yes Hx Pneumococcal Vaccination: 10/02/10 Vertical Provider Document - CONSTITUTIONAL Agree With Documented VS: Yes Notes: PHYSICAL EXAMINATION: GENERAL: Well-appearing, well-nourished and in no acute distress. HEAD: Atraumatic, normocephalic. EYES: Pupils equal round and reactive to light, extraocular movements intact, sclera anicteric, conjunctiva are normal. ENT: EAC clear b/l. TM's intact b/l without erythema, fluid, or perforation. Nares patent and without discharge. oropharynx clear without exudates. No tonsilar hypertrophy or erythema. Moist mucous membranes. No sinus tenderness. Uvula midline. No palatine shift. No tongue protrusion. No respiratory compromise. Mouth: + mild gingivitis. + Small abscess to gumline at #21. No facial swelling. + tenderness to tooth #21. NECK: Normal range of motion, supple without lymphadenopathy. No rigidity/ meningismus. LUNGS: Breath sounds clear to auscultation bilaterally and equal. No wheezes rales or rhonchi. HEART: Regular rate and rhythm without murmurs, rubs, gallops. NEUROLOGICAL: Cranial nerves grossly intact. Normal speech, normal gait. Normal sensory, motor exams PSYCH: Normal mood, normal affect. SKIN: Warm, Dry, normal turgor, no rashes or lesions noted.. - INFECTION CONTROL TRAVEL OUTSIDE OF THE [place] IN LAST 30 DAYS: No - RESPIRATORY O2 Sat by Pulse Oximetry: 99 Course - Re-evaluation Re-evalutation: 06/22/17 09:44 Patient is an afebrile, well-hydrated, 66-year-old female who presents to the ED with a lower gumline abscess to #21. Vitals are stable. PE otherwise unremarkable. Incision and drainage with a 22-gauge needle was utilized successfully without any complications. Patient tolerated procedure well. Low suspicion for any meningitis, sepsis, peritonsillar/pharyngeal abscess, respiratory compromise, Brad's, temporal arteritis, or other emergent systemic condition at this time. Patient is aware this condition can change from initial presentation and he needs to monitor symptoms closely. I will send the patient home with clindamycin and viscous lidocaine to use as directed. Conservative measures otherwise for symptoms. Call to schedule an appointment with a dentist for further evaluation and management. Recheck with your PCM this week as well. Return to the ED with any worsening/concerning symptoms otherwise as reviewed in discharge. Patient is in agreement. - Vital Signs Vital signs: Temp Pulse Resp BP Pulse Ox 98.4 F 68 16 116/67 99 06/22/17 08:53 06/22/17 08:53 06/22/17 08:53 06/22/17 08:53 06/22/17 08:53 Procedures - Incision and Drainage Left Face Time completed: 09:40 - Left lower gum line, abscess Type: Simple Anesthetic type: Other - viscous lido mL's of anesthetic: 1 Blade size: Other - 22g Incision Method: Incision made with needle Amount/type of drainage: moderate purulent Discharge - Discharge Clinical Impression: Dental abscess Condition: Stable Disposition: HOME, SELF-CARE Instructions: Abscess ([facility]), Clindamycin ([facility]), Dentist, Toothache ([facility]) Additional Instructions: [place] and floss twice daily Maintain fluid intake Take antibiotics as directed Mouthwash, salt water gargles, peroxide rinse as needed Tylenol/ibuprofen as needed Recheck with PCM this week Call today/tomorrow and schedule an appointment with your dentist for further evaluation Return to the ED with any worsening symptoms and/or development of fever, headache, facial swelling, swelling of lips/tongue/throat, trouble swallowing, drooling, hoarseness, neck pain/stiffness, chest pain, palpitations, syncope, shortness of breath, trouble breathing, abdominal pain, n/v/d, numbness/tingling , or other worsening symptoms that are concerning to you. Referrals: [facility] [Provider Group] - Follow up as needed [facility] [Provider Group] - Follow up as needed
[2017-06-22] MEDS ORDERED: LIDOCAINE 2% VISCOUS SOLN 20 ML UDCUP PO ONE (09:36)
[2017-06-22 09:54] VITALS: BP 110/65
== END 2017-06-22 09:54 | disposition home or self-care (01) ==
LOC: ER 08:50
PROC: 0H91XZZ Drainage of Face Skin, External Approach (ICD-10-PCS; principal; 2017-06-22)
DX: K04.7 Periapical abscess without sinus (principal); K08.89 Other specified disorders of teeth and supporting structures; R68.84 Jaw pain
CPT/HCPCS: 99283; 10060; J3490

== ENCOUNTER 2017-10-30 21:55 | Emergency (ER) | payer BC, MEDICARE ==
[2017-10-30] MEDS ORDERED: CETIRIZINE 10 MG TABLET PO ONE (23:18)
--- NOTE | 2017-10-30 23:23 | ER Document Report ---
ED General - General Chief Complaint: Chest Congestion Stated Complaint: DIFFICULTY SWALLOWING Time Seen by Provider: 10/30/17 22:46 Notes: Patient is a 67-year-old woman with a past medical history of hypothyroidism who presents with multiple concerns. She states that her primary concern is that her sinus passages are closing, she cannot breathe out of her nose and that she is intermittently having difficulty swallowing. The symptoms have been ongoing for the past several months but she feels that theyworsened in the last several weeks. She has seen ENT specialist at [facility] but states that they did not do any testing and she was not satisfied with that visit. She was told there was nothing wrong with her sinuses at that time. She states that she is convinced that she has a fungal infection in her sinuses or a fungal infection her blood. She states that she cannot speak or swallow. She also denies any difficulty handling her oral secretions. Nothing seems to improve or worsen her symptoms. She does admit to a history of anxiety but denies any active treatment for this disorder. TRAVEL OUTSIDE OF THE [place] IN LAST 30 DAYS: No - Related Data Allergies/Adverse Reactions: Sulfa (Sulfonamide Antibiotics) Allergy (Severe, Verified 10/30/17 21:57) heart beats very fast latex Allergy (Verified 10/30/17 21:57) NSAIDS (Non-Steroidal Anti-Inflamma [Nsaids] Allergy (Verified 10/30/17 21:57) ciprofloxacin [From Cipro] Adverse Reaction (Verified 10/30/17 21:57) levofloxacin [From Levaquin] Adverse Reaction (Verified 10/30/17 21:57) nitrofurantoin Adverse Reaction (Verified 10/30/17 21:57) Past Medical History - General Information source: Patient - Social History Smoking Status: Never Smoker Frequency of alcohol use: None Drug Abuse: None Lives with: Alone Family History: Reviewed & Not Pertinent Patient has suicidal ideation: No Patient has homicidal ideation: No - Past Medical History Cardiac Medical History: Reports: Hx Coronary Artery Disease - cholesterol, Hx Hypercholesterolemia Denies: Hx Heart Attack, Hx Hypertension Pulmonary Medical History: Reports: Hx COPD Denies: Hx Asthma, Hx Bronchitis, Hx Pneumonia, Hx Tuberculosis Neurological Medical History: Denies: Hx Cerebrovascular Accident, Hx Seizures Endocrine Medical History: Reports: Hx Hypothyroidism - After having her thyroid removed for cancer in October, Renal/ Medical History: Reports: Hx Kidney Stones. Denies: Hx Peritoneal Dialysis Malignancy Medical History: Reports: Hx Breast Cancer GI Medical History: Reports: Hx Gastroesophageal Reflux Disease, Hx Hiatal Hernia Musculoskeltal Medical History: Reports Hx Arthritis, Reports Hx Multiple Sclerosis - per pt although the lp'S were negative Psychiatric Medical History: Reports: Hx Anxiety - This is based on reviewing her multiple ER visits. Past Surgical History: Reports: Hx Appendectomy, Hx Bowel Surgery, Hx Section, Hx Cholecystectomy, Hx Hysterectomy, Hx Mastectomy, Hx Orthopedic Surgery - left rotator, Hx Thyroid Surgery, Hx Urinary Tract Surgery - BLADDER POLYPS REMOVED - Immunizations Hx Diphtheria, Pertussis, Tetanus Vaccination: Yes Hx Pneumococcal Vaccination: 10/02/10 Review of Systems - Review of Systems Notes: Constitutional: Negative for fever. HENT: Positive for dysphasia and sinus pressure Eyes: Negative for visual changes. Cardiovascular: Negative for chest pain. Respiratory: Negative for shortness of breath. Gastrointestinal: Negative for abdominal pain, vomiting or diarrhea. Genitourinary: Negative for dysuria. Musculoskeletal: Negative for back pain. Skin: Negative for rash. Neurological: Negative for headaches, weakness or numbness. 10 point ROS negative except as marked above and in HPI. Physical Exam - Vital signs Vitals: Temp Pulse Resp BP Pulse Ox 97.5 F 60 18 102/64 100 10/30/17 22:14 10/30/17 22:14 10/30/17 22:14 10/30/17 22:14 10/30/17 22:14 Interpretation: Normal Notes: PHYSICAL EXAMINATION: GENERAL: Obviously quite anxious HEAD: Atraumatic, normocephalic. EYES: Pupils equal round and reactive to light, extraocular movements intact, sclera anicteric, conjunctiva are normal. ENT: nares patent, no swelling over the maxillary sinuses or pain on palpation of the area, oropharynx clear without exudates. Moist mucous membranes. NECK: Normal range of motion, supple without lymphadenopathy LUNGS: Breath sounds clear to auscultation bilaterally and equal. No wheezes rales or rhonchi. HEART: Regular rate and rhythm without murmurs ABDOMEN: Soft, nontender, normoactive bowel sounds. No guarding, no rebound. No masses appreciated. EXTREMITIES: Normal range of motion, no pitting or edema. No cyanosis. NEUROLOGICAL: No focal neurological deficits. Moves all extremities spontaneously and on command. PSYCH: Extremely anxious, pressured speech SKIN: Warm, Dry, normal turgor, no rashes or lesions noted. Course - Re-evaluation Re-evalutation: 10/30/17 23:19 Patient presents with multiple vague complaints that did not appear to be concerning for any acute life-threatening pathology. Vitals are within normal limits at triage and at time of discharge. Physical examination is unremarkable. Patient has tolerated oral intake without difficulty. Patient was not noted to be in distress at any point during their ER visit. At this time, based on the reassuring evaluation, I do not suspect an acute MN, pulmonary embolus, aortic dissection, acute intra-abdominal pathology, stroke, or sepsis. The patient is profoundly concerned about multiple diagnoses that are extremely unlikely. Specifically she is worried about the possibility of fungemia, fungal sinusitis, a brain abscess, and then repeatedly states that she cannot speak or swallow when obviously doing so during exam. I have spent over 20 minutes of the bedside with this patient relating my severe concerned that she has an untreated or undiagnosed anxiety disorder and have strongly encouraged her to pursue treatment for this. I have also encouraged her to begin taking an antihistamine as some of her symptoms may be related to allergies. She has already been evaluated by an ENT at [place] who is informed her that there was nothing wrong with her sinuses. However the patient had states that this was inadequate as he had not performed any CT or MRIs of her sinuses did not biopsy her sinuses. I have informed her she would like a second opinion by an alternative ENT she is welcome to pursue this. However, I have informed her that I cannot in good conscience perform any irradiating images such as a CT of her face here as I do not believe there clinically indicated that the risks of radiation are not acceptable given my low clinical concern for any life-threatening pathology. Will discharge with return precautions and follow-up recommendations. Verbal discharge instructions given a the bedside and opportunity for questions given. Medication warnings reviewed. Patient is in agreement with this plan and has verbalized understanding of return precautions and the need for primary care follow-up in the next 24-72 hours. - Vital Signs Vital signs: Temp Pulse Resp BP Pulse Ox 97.9 F 56 L 16 98/53 L 97 10/30/17 23:45 10/30/17 23:45 10/30/17 23:45 10/30/17 23:45 10/30/17 23:45 Discharge - Discharge Clinical Impression: Anxiety Chronic sinusitis Qualifiers: Sinusitis location: maxillary Qualified Code(s): J32.0 - Chronic maxillary sinusitis Allergic rhinitis Qualifiers: Allergic rhinitis trigger: unspecified Allergic rhinitis seasonality: non- seasonal Qualified Code(s): J30.89 - Other allergic rhinitis Condition: Good Disposition: HOME, SELF-CARE Additional Instructions: Please begin taking cetirizine 10 mg daily. Follow-up with your ENT as scheduled. Consider seeking treatment for chronic anxiety. Return for any additional concerns you may have. Referrals: CARLENE BAKER MD [Primary Care Provider] - Follow up as needed
[2017-10-31 00:07] VITALS: BP 98/53
== END 2017-10-31 00:04 | disposition home or self-care (01) ==
LOC: ER 21:55
DX: F41.9 Anxiety disorder, unspecified (principal); J32.0 Chronic maxillary sinusitis; J30.89 Other allergic rhinitis; R13.10 Dysphagia, unspecified; E78.00 Pure hypercholesterolemia, unspecified; J44.9 Chronic obstructive pulmonary disease, unspecified; Z87.442 Personal history of urinary calculi; Z85.3 Personal history of malignant neoplasm of breast; Z90.49 Acquired absence of other specified parts of digestive tract; Z90.710 Acquired absence of both cervix and uterus; Z88.2 Allergy status to sulfonamides; Z91.040 Latex allergy status; Z88.3 Allergy status to other anti-infective agents
CPT/HCPCS: 99283

== ENCOUNTER 2017-11-16 01:39 | Emergency (ER) | payer BC, MEDICARE ==
--- NOTE | 2017-11-16 02:46 | ER Document Report ---
ED General - General Mode of Arrival: Ambulatory Information source: Patient TRAVEL OUTSIDE OF THE [place] IN LAST 30 DAYS: No <ELLA BUSTILLOS - Last Filed: 11/16/17 02:48> <VIKKI DOLAN - Last Filed: 11/16/17 06:04> - General Chief Complaint: Headache Stated Complaint: SINUS ISSUES Time Seen by Provider: 11/16/17 02:30 Notes: Patient is a 67 year old female with a history of COPD and high cholesterol presents to the emergency department complaining of a sinus headache onset 3 days ago. Patient states the pain goes into her head and behind her eyes and describes it as severe. Patient repeatedly states she is in a lot of pain and would like a nasal swab. Patient also complains of difficulty breathing, possible tongue swelling, difficulty swallowing, body aches, sore throat, chills , and dysuria. Patient denies nausea or vomiting. Patient also expressed concerns for a possible UTI and complains of epigastric pain and swelling. (ELLA BUSTILLOS) - Related Data Allergies/Adverse Reactions: Sulfa (Sulfonamide Antibiotics) Allergy (Severe, Verified 10/30/17 21:57) heart beats very fast latex Allergy (Verified 10/30/17 21:57) NSAIDS (Non-Steroidal Anti-Inflamma [Nsaids] Allergy (Verified 10/30/17 21:57) ciprofloxacin [From Cipro] Adverse Reaction (Verified 10/30/17 21:57) levofloxacin [From Levaquin] Adverse Reaction (Verified 10/30/17 21:57) nitrofurantoin Adverse Reaction (Verified 10/30/17 21:57) Past Medical History - General Information source: Patient - Social History Smoking Status: Never Smoker Cigarette use (# per day): No Chew tobacco use (# tins/day): No Frequency of alcohol use: Rare Drug Abuse: None Family History: Reviewed & Not Pertinent - Past Medical History Cardiac Medical History: Reports: Hx Coronary Artery Disease - cholesterol, Hx Hypercholesterolemia Pulmonary Medical History: Reports: Hx COPD Endocrine Medical History: Reports: Hx Hypothyroidism - After having her thyroid removed for cancer in October, Renal/ Medical History: Reports: Hx Kidney Stones Malignancy Medical History: Reports: Hx Breast Cancer GI Medical History: Reports: Hx Gastroesophageal Reflux Disease, Hx Hiatal Hernia Musculoskeltal Medical History: Reports Hx Arthritis, Reports Hx Multiple Sclerosis - per pt although the lp'S were negative Psychiatric Medical History: Reports: Hx Anxiety - This is based on reviewing her multiple ER visits. Past Surgical History: Reports: Hx Appendectomy, Hx Bowel Surgery, Hx Section, Hx Cholecystectomy, Hx Hysterectomy, Hx Mastectomy, Hx Orthopedic Surgery - left rotator, Hx Thyroid Surgery, Hx Urinary Tract Surgery - BLADDER POLYPS REMOVED - Immunizations Hx Diphtheria, Pertussis, Tetanus Vaccination: Yes Hx Pneumococcal Vaccination: 10/02/10 <ELLA BUSTILLOS - Last Filed: 11/16/17 02:48> Review of Systems - Review of Systems Constitutional: See HPI, Chills EENT: See HPI, Eye pain, Sinus pressure, Throat pain, Difficulty swallowing Cardiovascular: No symptoms reported Respiratory: No symptoms reported Gastrointestinal: See HPI, Abdominal pain. denies: Nausea, Vomiting Genitourinary: See HPI, Dysuria Female Genitourinary: No symptoms reported Musculoskeletal: No symptoms reported Skin: No symptoms reported Hematologic/Lymphatic: No symptoms reported Neurological/Psychological: See HPI, Headaches -: Yes All other systems reviewed and negative <ELLA BUSTILLOS - Last Filed: 11/16/17 02:48> Physical Exam <ELLA BUSTILLOS - Last Filed: 11/16/17 02:48> <VIKKI DOLAN - Last Filed: 11/16/17 06:04> - Vital signs Vitals: Temp Pulse Resp BP Pulse Ox 97.7 F 56 L 16 95/51 L 98 11/16/17 01:46 11/16/17 01:46 11/16/17 01:46 11/16/17 01:46 11/16/17 01:46 - Notes Notes: GENERAL: Alert, interacts well. No acute distress. Patient appears anxious. HEAD: Normocephalic, atraumatic. EYES: Pupils equal, round, and reactive to light. Extraocular movements intact. ENT: Oral mucosa moist, tongue midline. Nares patent, no nasal septal hematoma, TM's intacts. Post nasal drip. NECK: Full range of motion. Supple. Trachea midline. LUNGS: Clear to auscultation bilaterally, no wheezes, rales, or rhonchi. No respiratory distress. HEART: Regular rate and rhythm. No murmurs, gallops, or rubs. ABDOMEN: Soft, non-tender. Non-distended. Bowel sounds present in all 4 quadrants. EXTREMITIES: Moves all 4 extremities spontaneously. No edema, radial and dorsalis pedis pulses 2/4 bilaterally. No cyanosis. NEUROLOGICAL: Alert and oriented x3. Normal speech. PSYCH: Patient appears anxious. SKIN: Warm, dry, normal turgor. No rashes or lesions noted. (ELLA BUSTILLOS) Course <ELLA BUSTILLOS - Last Filed: 11/16/17 02:48> - Laboratory Result Diagrams: 11/16/17 03:29 11/16/17 03:29 <VIKKI DOLAN - Last Filed: 11/16/17 06:04> - Re-evaluation Re-evalutation: 11/16/17 04:29 CBC unremarkable, CMP shows slightly low CO2 21 otherwise unremarkable, lipase normal, urinalysis shows moderate blood and moderate leukocyte esterase with 1+ bacteria, no squamous epithelial cells and 2 RBCs. Flu swabs are negative, chest x-ray is negative. Patient will be prescribed Keflex. When I discussed this with the patient she said that she would prefer to have clindamycin. I discussed with the patient that Keflex is quite effective for urinary tract infections and has a lower risk of C. difficile colitis. Patient is agreeable to receiving Keflex. Discussed with patient for what appears to be a viral sinus infection that she should use nasal steroids. Patient states she will not use nasal steroid. Discussed with patient that she should try using nasal saline rinses, patient states she does not want to use these either. Discussed with patient that viral sinus infections will run their course on their own without any assistance however both of these techniques will decrease their duration and severity. It is up to her to decide what she would like to do. (VIKKI DOLAN) - Vital Signs Vital signs: Temp Pulse Resp BP Pulse Ox 97.7 F 55 L 16 103/57 L 100 11/16/17 04:47 11/16/17 04:47 11/16/17 04:47 11/16/17 04:47 11/16/17 04:47 - Laboratory Laboratory results interpreted by me: 11/16/17 11/16/17 11/16/17 02:43 03:29 03:29 Eosinophils % 7.7 H BUN 21 H Urine Blood MODERATE H Ur Leukocyte Esterase MODERATE H Urine Ascorbic Acid 40 H Discharge <ELLA BUSTILLOS - Last Filed: 11/16/17 02:48> <VIKKI DOLAN - Last Filed: 11/16/17 06:04> - Discharge Clinical Impression: Acute viral sinusitis Urinary tract infection Qualifiers: Urinary tract infection type: acute cystitis Hematuria presence: with hematuria Qualified Code(s): N30.01 - Acute cystitis with hematuria Condition: Stable Disposition: HOME, SELF-CARE Additional Instructions: Urinary Tract Infection Your evaluation indicates that you have a urinary tract infection. This is due to germs growing in the bladder. This is a common problem. This infection usually responds quickly to antibiotics. Your antibiotic should be taken exactly as prescribed. Drink plenty of fluids -- three to four quarts a day. Occasionally, a bladder anesthetic will be prescribed to help stop the feeling of urgency until the antibiotic has a chance to clear the infection. This may cause your urine to be dark orange. Certain urine infections require a culture. If the doctor obtained a culture, the results will be back in two days. You should call to see if a change in treatment is needed. A repeat urinalysis after you finish treatment is often recommended. The physician will let you know if further testing is required. Call the doctor if you develop fever, chills, flank pain, inability to urinate, or blood in the urine. Upper Respiratory Illness You have a viral infection of the respiratory passages -- a "cold." This common infection causes nasal congestion, drainage, and often sore throat and cough. It is caused by a virus and is highly contagious. The disease usually lasts a week or more, though the worst symptoms are usually over in 3 or 4 days. There is no "cure" for the viral infection -- it must run its course. If there is a complication, such as bacterial infection in the nose, sinuses, middle ear, or bronchial tubes, antibiotics may be required, but antibiotics won 't affect the virus. If you smoke, you should STOP!! Drink plenty of fluids. A humidifier may help. An expectorant medication or decongestant may make you more comfortable. Use acetaminophen or ibuprofen for fever or aches. See the doctor if fever persists over two or three days, if there is any significant worsening of your symptoms, or if you simply fail to improve as expected. Prescriptions: Cephalexin Monohydrate [Keflex 500 mg Capsule] 500 mg PO Q6H 5 Days capsule Referrals: CARLENE BAKER MD [Primary Care Provider] - Follow up in 3-5 days Scribe Attestation: 11/16/17 06:04 I personally performed the services described in the documentation, reviewed and edited the documentation which was dictated to the scribe in my presence, and it accurately records my words and actions. (VIKKI DOLAN) Scribe Documentation - Scribe Written by Alise:: Candi Leon, 11/16/2017 02:47 acting as scribe for :: Param <ELLA BUSTILLOS - Last Filed: 11/16/17 02:48>
[2017-11-16 03:40] LABS: ABSOLUTE EOSINOPHILS # (AUTO) 0.4 10^3/uL (0.0-0.6); ABSOLUTE LYMPHOCYTES (AUTO) 1.6 10^3/uL (0.5-4.7); ABSOLUTE MONOCYTES (AUTO) 0.5 10^3/uL (0.1-1.4); ABSOLUTE NEUT (AUTO) 2.2 10^3/uL (1.7-8.2); BASOPHILS % (AUTO) 0.9 % (0-2); EOSINOPHILS % (AUTO) 7.7 % (0-6); HEMATOCRIT 39.4 % (36.0-47.0); HEMOGLOBIN 13.4 g/dL (12.0-15.5); LYMPHOCYTES % (AUTO) 34.6 % (13-45); MEAN CORPUSCULAR HEMOGLOBIN 32.1 pg (27.0-33.4); MEAN CORPUSCULAR HGB CONC 34.1 g/dL (32.0-36.0); MEAN CORPUSCULAR VOLUME 94 fl (80-97); MONOCYTES % (AUTO) 10.7 % (3-13); PLATELET COUNT 211 10^3/uL (150-450); RED BLOOD COUNT 4.19 10^6/uL (3.72-5.28); RED CELL DISTRIBUTION WIDTH 13.5 % (11.5-14.0); SEGMENTED NEUTROPHILS % (AUTO) 46.1 % (42-78); TOTAL CELLS COUNTED % (AUTO) 100 %; WHITE BLOOD COUNT 4.7 10^3/uL (4.0-10.5)
[2017-11-16 03:42] LABS: APPEARANCE,URINE SLIGHTLY-CLOUDY; BILIRUBIN,URINE NEGATIVE (NEGATIVE); COLOR,URINE YELLOW; GLUCOSE, URINE NEGATIVE (NEGATIVE); KETONES,URINE NEGATIVE (NEGATIVE); LEUKOCYTE ESTERASE,URINE MODERATE (NEGATIVE); NITRITE,URINE NEGATIVE (NEGATIVE); PROTEIN,URINE NEGATIVE (NEGATIVE); URINE SPECIFIC GRAVITY 1.005; UROBILINOGEN,URINE NEGATIVE mg/dL (<2.0)
[2017-11-16 03:44] LABS: A TYPE INFLUENZA AG NEGATIVE (NEGATIVE); B INFLUENZA AG NEGATIVE (NEGATIVE)
[2017-11-16 03:55] LABS: ALANINE AMINOTRANSFERASE 37 U/L (9-52); ALKALINE PHOSPHATASE 67 U/L (38-126); ANION GAP 10 (5-19); ASPARTATE AMINO TRANSFERASE 29 U/L (14-36); BILIRUBIN,TOTAL 0.3 mg/dL (0.2-1.3); BLOOD UREA NITROGEN 21 mg/dL (7-20); CALCIUM 9.5 mg/dL (8.4-10.2); CARBON DIOXIDE 27 mmol/L (22-30); CHLORIDE 106 mmol/L (98-107); GLUCOSE 81 mg/dL (75-110); LIPASE 160.4 U/L (23-300); POTASSIUM 4.2 mmol/L (3.6-5.0); SODIUM 143.1 mmol/L (137-145); TOTAL PROTEIN 6.5 g/dL (6.3-8.2)
[2017-11-16] MEDS ORDERED: CEPHALEXIN 500 MG CAPSULE PO ONE (04:20)
--- NOTE | 2017-11-16 04:26 | RADIOLOGY REPORT (SQ) ---
EXAM DESCRIPTION: CHEST PA/LAT COMPLETED DATE/TIME: 11/16/2017 4:14 am REASON FOR STUDY: cough x4 days, SOB COMPARISON: Chest x-ray 06/16/2016. EXAM PARAMETERS: NUMBER OF VIEWS: two views TECHNIQUE: Digital Frontal and Lateral radiographic views of the chest acquired. RADIATION DOSE: NA LIMITATIONS: none FINDINGS: LUNGS AND PLEURA: No consolidation, pneumothorax or pleural effusion. MEDIASTINUM AND HILAR STRUCTURES: No masses or contour abnormalities. HEART AND VASCULAR STRUCTURES: Heart normal size. No evidence for failure. BONES: No acute findings. HARDWARE: None in the chest. IMPRESSION: No acute radiographic finding in the chest. TECHNICAL DOCUMENTATION: JOB ID: [id number] [place]-64 2010 [employer]- All Rights Reserved
[2017-11-16 04:49] VITALS: BP 103/57
== END 2017-11-16 04:47 | disposition home or self-care (01) ==
LOC: ER 01:39
DX: J01.90 Acute sinusitis, unspecified (principal); N30.01 Acute cystitis with hematuria; R10.13 Epigastric pain; J44.9 Chronic obstructive pulmonary disease, unspecified; E78.00 Pure hypercholesterolemia, unspecified; I25.10 Atherosclerotic heart disease of native coronary artery without angina pectoris; E03.9 Hypothyroidism, unspecified; Z88.2 Allergy status to sulfonamides; Z91.040 Latex allergy status; Z88.3 Allergy status to other anti-infective agents; Z87.442 Personal history of urinary calculi; Z85.3 Personal history of malignant neoplasm of breast; Z90.49 Acquired absence of other specified parts of digestive tract; Z90.710 Acquired absence of both cervix and uterus
CPT/HCPCS: 36415; 71046; 80053; 81001; 83690; 85025; 87086; 87088; 87186; 87804; 99284

== ENCOUNTER → 2017-12-07 | Outpatient (CLI) | payer BC | LOC: OD 11:08 | PROVIDERS: ATTEND Otolaryngology | DX: J30.9 Allergic rhinitis, unspecified (principal) | CPT/HCPCS: 36415; 82785; 86003 ==

== ENCOUNTER → 2018-01-12 | Outpatient (CLI) | payer BC ==
--- NOTE | 2018-01-12 09:51 | RADIOLOGY REPORT (SQ) ---
EXAM DESCRIPTION: CAROTID DOPPLER COMPLETED DATE/TIME: 01/12/2018 8:46 am REASON FOR STUDY: CAROTID DISEASE I77.9 DISORDER OF ARTERIES AND ARTERIOLES, UNSPECIFIED COMPARISON: CT brain 07/20/2014 Carotid Doppler 07/23/2015 TECHNIQUE: Grayscale ultrasound, Doppler velocity and spectra, and color Doppler images acquired of the extra-cranial carotid and vertebral arteries. Images stored on PACS. LIMITATIONS: None. FINDINGS: RIGHT CAROTID CCA Velocities: Within normal limits. ICA Velocities Peak systolic 0.9 m/s. End diastolic 0.27 m/s. Proximal ICA/CCA peak systolic ratio 1.1. Spectra normal. No significant plaque. LEFT CAROTID CCA Velocities: Within normal limits. ICA Velocities Peak systolic 0.6 m/s. End diastolic 0.21 m/s. Proximal ICA/CCA peak systolic ratio 0.9. Spectra normal. No significant plaque. VERTEBRAL ARTERIES: Antegrade flow. Normal waveforms. SUBCLAVIAN ARTERIES: Not evaluated OTHER: No other significant finding. IMPRESSION: NO HEMODYNAMICALLY SIGNIFICANT STENOSIS. COMMENT: Quality ID #[id number]: Velocity criteria are extrapolated from the diameter data as defined by t he Society of Radiologists in Ultrasound Consensus Conference. Radiology 2003: 229; 340-346. TECHNICAL DOCUMENTATION: JOB ID: [id number] [employer]- All Rights Reserved Reading location - IP/workstation name: [facility]
== END ==
LOC: SP 08:01
PROVIDERS: ATTEND Family Medicine
DX: I77.9 Disorder of arteries and arterioles, unspecified (principal)
CPT/HCPCS: 93880

== ENCOUNTER → 2018-05-04 | Outpatient (CLI) | payer BC, OTHER ==
--- NOTE | 2018-05-04 10:25 | RADIOLOGY REPORT (SQ) ---
EXAM DESCRIPTION: CT SINUSES FOR ENT COMPLETED DATE/TIME: 05/04/2018 7:41 am REASON FOR STUDY: NASAL SEPTAL DEVIATION (J34.2), ACUTE RECURRENT SINUSITIS (J01.91) J34.2 DEVIATED NASAL SEPTUM J01.91 ACUTE RECURRENT SINUSITIS, UNSPECIFIED J32.9 CHRONIC SINUSITIS, UNSPECIFIED COMPARISON: None. TECHNIQUE: Noncontrast scanning through the paranasal sinuses using bone algorithm. Reconstructed MPR images reviewed. All images stored on PACS. Images acquired for image guided surgery. All CT scanners at this facility use dose modulation, iterative reconstruction, and/or weight based d osing when appropriate to reduce radiation dose to as low as reasonably achievable (ALARA). [facility]: Dose Right [facility]: CareDose [facility]: Dose Right [facility]: Teradose 4D [facility]: Urgent Group RADIATION DOSE: mGy. FINDINGS: The frontal sinuses are hypoplastic. The infundibula are patent. Mucoperiosteal thickeni ng right nasofrontal recess. Eloisa bullosa left middle turbinate. Small Gibson air cell on the lef t. No fluid levels. Nasal septum is near midline. IMPRESSION: NO EVIDENCE OF ACUTE SINUSITIS. TECHNICAL DOCUMENTATION: JOB ID: [id number] Quality ID # [id number]: Final reports with documentation of one or more dose reduction techniques (e.g., Au tomated exposure control, adjustment of the mA and/or kV according to patient size, use of iterative reconstruction technique) 2010 [employer]- All Rights Reserved Reading location - IP/workstation name: [facility]
== END ==
LOC: RAD 07:06
PROVIDERS: ATTEND Otolaryngology
DX: J34.2 Deviated nasal septum (principal); J01.91 Acute recurrent sinusitis, unspecified
CPT/HCPCS: 70486

== ENCOUNTER 2018-05-20 12:57 | Emergency (ER) | payer BC, MEDICARE ==
--- NOTE | 2018-05-20 15:46 | ER Document Report ---
ED GI/ - General Chief Complaint: Abdominal Pain Stated Complaint: ABDOMINAL PAIN Time Seen by Provider: 05/20/18 15:37 Notes: 67-year-old female to the emergency department complaining of abdominal pain. Patient has a long-standing history of gastroparesis. Followed by Dr. Bergeron. Complaining of worsening constipation. States that she can eat anything or the pain is getting worse. Describes the pain is epigastric in nature and radiating up into her chest. I have greeted and performed a rapid initial assessment of this patient. A comprehensive ED assessment and evaluation of the patient, analysis of test results and completion of the medical decision making process will be conducted by additional ED providers. TRAVEL OUTSIDE OF THE [place] IN LAST 30 DAYS: No - HPI Patient complains to provider of: Abdominal pain, Vomiting, Other Onset: Other - Chronic for several weeks Timing/Duration: Gradual, Constant, Worse Quality of pain: Dull, Fullness Severity at maximum: Moderate Severity in ED: Moderate Pain Level: 3 - Related Data Allergies/Adverse Reactions: Sulfa (Sulfonamide Antibiotics) Allergy (Severe, Verified 05/20/18 12:59) heart beats very fast latex Allergy (Verified 05/20/18 12:59) NSAIDS (Non-Steroidal Anti-Inflamma [Nsaids] Allergy (Verified 05/20/18 12:59) ciprofloxacin [From Cipro] Adverse Reaction (Verified 05/20/18 12:59) levofloxacin [From Levaquin] Adverse Reaction (Verified 05/20/18 12:59) nitrofurantoin Adverse Reaction (Verified 05/20/18 12:59) Past Medical History - General Information source: Patient - Social History Smoking Status: Former Smoker Chew tobacco use (# tins/day): No Frequency of alcohol use: None Drug Abuse: None Lives with: Family Family History: Reviewed & Not Pertinent Patient has suicidal ideation: No Patient has homicidal ideation: No - Past Medical History Cardiac Medical History: Reports: Hx Coronary Artery Disease - cholesterol, Hx Hypercholesterolemia Pulmonary Medical History: Reports: Hx COPD Endocrine Medical History: Reports: Hx Hypothyroidism - After having her thyroid removed for cancer in October, Renal/ Medical History: Reports: Hx Kidney Stones. Denies: Hx Peritoneal Dialysis Malignancy Medical History: Reports: Hx Breast Cancer GI Medical History: Reports: Hx Gastroesophageal Reflux Disease, Hx Hiatal Hernia Musculoskeletal Medical History: Reports Hx Arthritis, Reports Hx Multiple Sclerosis - per pt although the lp'S were negative Psychiatric Medical History: Reports: Hx Anxiety - This is based on reviewing her multiple ER visits. Past Surgical History: Reports: Hx Appendectomy, Hx Bowel Surgery, Hx Section, Hx Cholecystectomy, Hx Hysterectomy, Hx Mastectomy, Hx Orthopedic Surgery - left rotator, Hx Thyroid Surgery, Hx Urinary Tract Surgery - BLADDER POLYPS REMOVED - Immunizations Hx Diphtheria, Pertussis, Tetanus Vaccination: Yes Hx Pneumococcal Vaccination: 10/02/10 Review of Systems - Review of Systems Notes: Constitutional: denies: Chills, Diaphoresis, Fever, Malaise, Weakness EENT: denies: Eye discharge, Blurred vision, Tearing, Double vision, Nose congestion, Nose discharge, Throat swelling, Mouth pain Cardiovascular: denies: Palpitations, Heart racing, Orthopnea, Dyspnea, Chest pain Respiratory: denies: Cough, Hurts to breathe, Wheezing, Shortness of breath Gastrointestinal: Abdominal pain and fullness, constipation, nausea Genitourinary: denies: Burning, Dysuria, Discharge, Frequency, Flank pain, Hematuria Musculoskeletal: denies: Joint pain, Joint swelling, Muscle pain, Muscle stiffness, back pain Hematologic/Lymphatic: denies: Anemia, Easy bleeding, Easy bruising, Blood clots Neurological/Psychological: denies: Confusion, Dementia, Depression, Loss of consciousness Skin: No lesions, no masses, no skin breakdown, no abscesses Physical Exam - Vital signs Vitals: Temp Pulse Resp BP Pulse Ox 98.1 F 58 L 18 90/57 L 96 05/20/18 13:54 05/20/18 13:54 05/20/18 13:54 05/20/18 13:54 05/20/18 13:54 Interpretation: Bradycardic - General General appearance: Appears well, Alert - HEENT Head: Normocephalic, Atraumatic Eyes: Normal Pupils: PERRL - Respiratory Respiratory status: No respiratory distress Chest status: Nontender Breath sounds: Normal Chest palpation: Normal - Cardiovascular Rhythm: Bradycardia Heart sounds: Normal auscultation Murmur: No - Abdominal Inspection: Normal Distension: No distension Bowel sounds: Normal Tenderness: Nontender. No: Tender, Weiss's sign, Guarding, Rebound Organomegaly: No organomegaly - Back Back: Normal, Nontender - Extremities General upper extremity: Normal inspection, Nontender, Normal color, Normal ROM , Normal temperature General lower extremity: Normal inspection, Nontender, Normal color, Normal ROM , Normal temperature, Normal weight bearing. No: Scott's sign - Neurological Neuro grossly intact: Yes Cognition: Normal Orientation: AAOx4 Ricardo Coma Scale Eye Opening: Spontaneous Ricardo Coma Scale Verbal: Oriented [place] Coma Scale Motor: Obeys Commands [place] Coma Scale Total: 15 Speech: Normal Motor strength normal: LUE, RUE, LLE, RLE Sensory: Normal - Psychological Associated symptoms: Normal affect, Normal mood - Skin Skin Temperature: Warm Skin Moisture: Dry Skin Color: Normal Course - Re-evaluation Re-evalutation: 05/20/18 20:22 At this time I have reviewed her labs and they appear unremarkable. X-ray shows some constipation. Would like to give her some medication to see if this will help. Will have her reevaluated by one of the physicians in the main ER at this time. - Vital Signs Vital signs: Temp Pulse Resp BP Pulse Ox 98.1 F 58 L 18 90/57 L 96 05/20/18 13:54 05/20/18 13:54 05/20/18 13:54 05/20/18 13:54 05/20/18 13:54 - Laboratory Result Diagrams: 05/20/18 17:21 05/20/18 17:21 Laboratory results interpreted by me: 05/20/18 05/20/18 17:21 17:25 Potassium 5.1 H BUN 29 H AST 46 H Ur Leukocyte Esterase SMALL H Urine Ascorbic Acid 40 H Discharge - Discharge Referrals: JUVE JEFFERSON DO [Primary Care Provider] - Follow up as needed
--- NOTE | 2018-05-20 16:56 | RADIOLOGY REPORT (SQ) ---
EXAM DESCRIPTION: ACUTE ABDOMEN SERIES COMPLETED DATE/TIME: 05/20/2018 4:24 pm REASON FOR STUDY: abd pain COMPARISON: 01/06/2017 NUMBER OF VIEWS: Three views. TECHNIQUE: Frontal chest, supine abdomen and upright/ abdomen radiographic images acquired. LIMITATIONS: None. FINDINGS: CHEST: Lungs clear of infiltrates. FREE AIR: None. No abnormal gas collections. BOWEL GAS PATTERN: Nonobstructive gas pattern. A large amount of fecal material is present. CALCIFICATIONS: No suspicious calcifications. HARDWARE: None in the abdomen. SOFT TISSUES: No gross mass or suggestion of organomegaly. BONES: No acute fracture. No worrisome bone lesions. OTHER: No other significant finding. IMPRESSION: Constipation. TECHNICAL DOCUMENTATION: JOB ID: [id number] [employer]- All Rights Reserved Reading location - IP/workstation name: [email or web address]
[2018-05-20 17:36] LABS: ABSOLUTE EOSINOPHILS # (AUTO) 0.1 10^3/uL (0.0-0.6); ABSOLUTE LYMPHOCYTES (AUTO) 1.9 10^3/uL (0.5-4.7); ABSOLUTE MONOCYTES (AUTO) 0.3 10^3/uL (0.1-1.4); ABSOLUTE NEUT (AUTO) 2.2 10^3/uL (1.7-8.2); BASOPHILS % (AUTO) 0.9 % (0-2); EOSINOPHILS % (AUTO) 2.5 % (0-6); HEMOGLOBIN 14.2 g/dL (12.0-15.5); MEAN CORPUSCULAR HEMOGLOBIN 32.9 pg (27.0-33.4); MEAN CORPUSCULAR HGB CONC 34.7 g/dL (32.0-36.0); MEAN CORPUSCULAR VOLUME 95 fl (80-97); MONOCYTES % (AUTO) 7.2 % (3-13); PLATELET COUNT 248 10^3/uL (150-450); RED BLOOD COUNT 4.33 10^6/uL (3.72-5.28); RED CELL DISTRIBUTION WIDTH 13.9 % (11.5-14.0); SEGMENTED NEUTROPHILS % (AUTO) 47.4 % (42-78); TOTAL CELLS COUNTED % (AUTO) 100 %; WHITE BLOOD COUNT 4.6 10^3/uL (4.0-10.5)
[2018-05-20] MEDS ORDERED: BISACODYL 5 MG TABEC PO ONE (17:55)
[2018-05-20] MEDS ORDERED: LACTULOSE SYRUP 20 GM/30 ML UDCUP PO ONE (17:55)
[2018-05-20] MEDS ORDERED: ONDANSETRON 4 MG TAB.RAPDIS PO ONE (17:56)
[2018-05-20 17:59] LABS: APPEARANCE,URINE SLIGHTLY-CLOUDY; BILIRUBIN,URINE NEGATIVE (NEGATIVE); COLOR,URINE YELLOW; GLUCOSE, URINE NEGATIVE (NEGATIVE); KETONES,URINE NEGATIVE (NEGATIVE); LEUKOCYTE ESTERASE,URINE SMALL (NEGATIVE); NITRITE,URINE NEGATIVE (NEGATIVE); PROTEIN,URINE NEGATIVE (NEGATIVE); URINE SPECIFIC GRAVITY 1.014; UROBILINOGEN,URINE NEGATIVE mg/dL (<2.0)
[2018-05-20 18:04] LABS: ALANINE AMINOTRANSFERASE 49 U/L (9-52); ALBUMIN 4.4 g/dL (3.5-5.0); ALKALINE PHOSPHATASE 49 U/L (38-126); ANION GAP 13 (5-19); ASPARTATE AMINO TRANSFERASE 46 U/L (14-36); BILIRUBIN,DIRECT 0.1 mg/dL (0.0-0.4); BILIRUBIN,TOTAL 0.6 mg/dL (0.2-1.3); BLOOD UREA NITROGEN 29 mg/dL (7-20); CALCIUM 9.9 mg/dL (8.4-10.2); CARBON DIOXIDE 28 mmol/L (22-30); CHLORIDE 102 mmol/L (98-107); GLUCOSE 86 mg/dL (75-110); POTASSIUM 5.1 mmol/L (3.6-5.0); SODIUM 142.7 mmol/L (137-145); TOTAL PROTEIN 7.5 g/dL (6.3-8.2)
--- NOTE | 2018-05-20 22:31 | ER Document Report ---
ED General - General Mode of Arrival: Ambulatory Information source: Patient TRAVEL OUTSIDE OF THE [place] IN LAST 30 DAYS: No <ELLA BUSTILLOS - Last Filed: 05/20/18 22:43> <TANIKAJUVE - Last Filed: 05/21/18 13:38> - General Chief Complaint: Abdominal Pain Stated Complaint: ABDOMINAL PAIN Time Seen by Provider: 05/20/18 15:37 Notes: Patient is a 67-year-old female with a history of gastroparesis presents to the emergency department complaining of abdominal pain and worsening constipation. Patient describes her abdominal pain as being primarily located in her epigastric region and states it is exacerbated with eating. Patient states her last bowel movement was this morning. She states she has taken MiraLAX although not regularly. Patient denies taking any medications and further denies taking Reglan due to being afraid to take it. Patient is being followed up by Dr. Bergeron. (ELLA BUSTILLOS) - Related Data Allergies/Adverse Reactions: Sulfa (Sulfonamide Antibiotics) Allergy (Severe, Verified 05/20/18 12:59) heart beats very fast latex Allergy (Verified 05/20/18 12:59) NSAIDS (Non-Steroidal Anti-Inflamma [Nsaids] Allergy (Verified 05/20/18 12:59) ciprofloxacin [From Cipro] Adverse Reaction (Verified 05/20/18 12:59) levofloxacin [From Levaquin] Adverse Reaction (Verified 05/20/18 12:59) nitrofurantoin Adverse Reaction (Verified 05/20/18 12:59) Past Medical History - General Information source: Patient - Social History Smoking Status: Former Smoker Chew tobacco use (# tins/day): No Frequency of alcohol use: None Drug Abuse: None Lives with: Family Family History: Reviewed & Not Pertinent Patient has suicidal ideation: No Patient has homicidal ideation: No - Past Medical History Cardiac Medical History: Reports: Hx Coronary Artery Disease - cholesterol, Hx Hypercholesterolemia Pulmonary Medical History: Reports: Hx COPD Endocrine Medical History: Reports: Hx Hypothyroidism - After having her thyroid removed for cancer in October, Renal/ Medical History: Reports: Hx Kidney Stones Malignancy Medical History: Reports: Hx Breast Cancer GI Medical History: Reports: Hx Gastroesophageal Reflux Disease, Hx Hiatal Hernia Musculoskeletal Medical History: Reports Hx Arthritis, Reports Hx Multiple Sclerosis - per pt although the lp'S were negative Psychiatric Medical History: Reports: Hx Anxiety - This is based on reviewing her multiple ER visits. Past Surgical History: Reports: Hx Appendectomy, Hx Bowel Surgery, Hx Section, Hx Cholecystectomy, Hx Hysterectomy, Hx Mastectomy, Hx Orthopedic Surgery - left rotator, Hx Thyroid Surgery, Hx Urinary Tract Surgery - BLADDER POLYPS REMOVED - Immunizations Hx Diphtheria, Pertussis, Tetanus Vaccination: Yes Hx Pneumococcal Vaccination: 10/02/10 <TRESSAELLA CAMPBELL - Last Filed: 05/20/18 22:43> Review of Systems - Review of Systems Constitutional: No symptoms reported EENT: No symptoms reported Cardiovascular: No symptoms reported Respiratory: No symptoms reported Gastrointestinal: See HPI, Abdominal pain, Constipation Genitourinary: No symptoms reported Female Genitourinary: No symptoms reported Musculoskeletal: No symptoms reported Skin: No symptoms reported Hematologic/Lymphatic: No symptoms reported Neurological/Psychological: No symptoms reported -: Yes All other systems reviewed and negative <TRESSAELLA CAMPBELL - Last Filed: 05/20/18 22:43> Physical Exam <TRESSAELLA CAMPBELL - Last Filed: 05/20/18 22:43> <TANIKAJUVE Roman - Last Filed: 05/21/18 13:38> - Vital signs Vitals: Temp Pulse Resp BP Pulse Ox 98.1 F 58 L 18 90/57 L 96 05/20/18 13:54 05/20/18 13:54 05/20/18 13:54 05/20/18 13:54 05/20/18 13:54 - Notes Notes: GENERAL: Alert, interacts well, well appearing, pleasant. No acute distress. HEAD: Normocephalic, atraumatic. EYES: Pupils equal, round, and reactive to light. Extraocular movements intact. ENT: Oral mucosa moist, tongue midline. NECK: Full range of motion. Supple. Trachea midline. LUNGS: Clear to auscultation bilaterally, no wheezes, rales, or rhonchi. No respiratory distress. HEART: Regular rate and rhythm. No murmurs, gallops, or rubs. ABDOMEN: Soft, non-tender. Non-distended. Bowel sounds present in all 4 quadrants. EXTREMITIES: Moves all 4 extremities spontaneously. N NEUROLOGICAL: Alert and oriented x3. Normal speech. PSYCH: Normal affect, normal mood. SKIN: Warm, dry, normal turgor. No rashes or lesions noted. (ELLA BUSTILLOS) Course - Laboratory Result Diagrams: 05/20/18 17:21 05/20/18 17:21 <ELLA BUSTILLOS - Last Filed: 05/20/18 22:43> - Laboratory Result Diagrams: 05/20/18 17:21 05/20/18 17:21 <JUVE SAGASTUME - Last Filed: 05/21/18 13:38> - Re-evaluation Re-evalutation: 05/20/18 23:18 Patient shows large amount of constipation fecal retention on abdominal series. Otherwise, labs within normal limits or nonsignificant. Patient does have a history of gastroparesis and is not taking anything for constipation. She has a benign exam and is well appearing. Will place patient on bowel regimen with primary care follow-up. Also advised patient to drink ample amounts of water at least 4-6 glasses a day to help prevent constipation. 05/21/18 13:37 (JUVE SAGASTUME) - Vital Signs Vital signs: Temp Pulse Resp BP Pulse Ox 98.3 F 59 L 20 110/66 98 05/20/18 23:37 05/20/18 23:37 05/20/18 23:37 05/20/18 23:37 05/20/18 23:37 - Laboratory Laboratory results interpreted by me: 05/20/18 05/20/18 17:21 17:25 Potassium 5.1 H BUN 29 H AST 46 H Ur Leukocyte Esterase SMALL H Urine Ascorbic Acid 40 H Discharge <ELLA BUSTILLOS - Last Filed: 05/20/18 22:43> <JUVE SAGASTUME - Last Filed: 05/21/18 13:38> - Discharge Clinical Impression: Constipation Qualifiers: Constipation type: unspecified constipation type Qualified Code(s): K59.00 - Constipation, unspecified Condition: Stable Disposition: HOME, SELF-CARE Instructions: Constipation ([facility]) Prescriptions: Glycerin 1 each RC DAILY 7 Days #7 supp.rect Magnesium Hydroxide [Milk of Magnesia] 400 mg PO ASDIR PRN #1 bottle PRN Reason: Polyethylene Glycol 3350 [Miralax Powder 17 gm/Packet] 1 packet PO DAILY 30 Days #1 pkg Referrals: JUVE JEFFERSON DO [ASSOCIATE] - Follow up as needed Scribe Attestation: 05/21/18 13:38 I personally performed the services described in the documentation, reviewed and edited the documentation which was dictated to the scribe in my presence, and it accurately records my words and actions. (JUVE SAGASTUME) Scribe Documentation - Scribe Written by Candi:: Candi Leon, 05/20/2018 22:31 acting as scribe for :: Tanika <ELLA BUSTILLOS - Last Filed: 05/20/18 22:43>
--- NOTE | 2018-05-20 23:38 | EKG REPORT ---
SEVERITY:- OTHERWISE NORMAL ECG - SINUS BRADYCARDIA : Confirmed by: Jada Cruz MD 20-May-2018 23:37:42
[2018-05-20 23:50] VITALS: BP 110/66
== END 2018-05-20 23:37 | disposition home or self-care (01) ==
LOC: ER 12:57
DX: K59.00 Constipation, unspecified (principal); R10.9 Unspecified abdominal pain; Z88.2 Allergy status to sulfonamides; Z88.3 Allergy status to other anti-infective agents
CPT/HCPCS: 93005; 99284; 36415; 83690; 85025; 80053; 81001; 84484; 74022; 93010; S0119

== ENCOUNTER 2018-06-28 11:20 | Emergency (ER) | payer BC ==
[2018-06-28 12:15] VITALS: BP 96/57
--- NOTE | 2018-06-28 13:55 | ER Document Report ---
ED Neck/Back Problem - General Chief Complaint: Neck Pain >24hrs old Stated Complaint: NECK PAIN Time Seen by Provider: 06/28/18 13:40 Mode of Arrival: Ambulatory Information source: Patient Notes: Patient is a 67-year-old female comes emergency room complaining of neck pain. Patient states that she went out yesterday evening to clean the wet leaves out of the street gutter so water could flow she used a raking as she did she was pulling in her upper neck and back have started to have spasms. She went in the house took 650 mg of Tylenol that did not work and when she got up this morning she thought that maybe she went to did the same thing it might work the discomfort out and it got worse. Patient states she is unable to turn her head to the right and limited to the left. Patient denies any other history of neck problems. She currently states that she only has a history of hypothyroidism and hyperlipidemia. She does not smoke. Patient also states that she knows that what will help with the pain is OxyContin and it was requesting it after the exam. TRAVEL OUTSIDE OF THE [place] IN LAST 30 DAYS: No - HPI Patient complains to provider of: Pain, Injury, Neck, Upper back Onset: Yesterday Where: Outdoors Onset: Sudden Timing: Constant, Worse Quality of pain: Cramping, Sharp, Throbbing Severity: Moderate Pain Level: 3 Context: Other - Pulling lifting Recent injury: Yes Exacerbated by: Movement of neck Relieved by: Nothing Similar symptoms previously: No Recently seen / treated by doctor: No - Related Data Allergies/Adverse Reactions: Sulfa (Sulfonamide Antibiotics) Allergy (Severe, Verified 05/20/18 12:59) heart beats very fast latex Allergy (Verified 05/20/18 12:59) NSAIDS (Non-Steroidal Anti-Inflamma [Nsaids] Allergy (Verified 05/20/18 12:59) ciprofloxacin [From Cipro] Adverse Reaction (Verified 05/20/18 12:59) levofloxacin [From Levaquin] Adverse Reaction (Verified 05/20/18 12:59) nitrofurantoin Adverse Reaction (Verified 05/20/18 12:59) Past Medical History - Social History Smoking Status: Never Smoker Cigarette use (# per day): No Chew tobacco use (# tins/day): No Smoking Education Provided: No Frequency of alcohol use: None Drug Abuse: None Lives with: Alone Family History: Reviewed & Not Pertinent Patient has suicidal ideation: No Patient has homicidal ideation: No - Past Medical History Cardiac Medical History: Reports: Hx Coronary Artery Disease - cholesterol, Hx Hypercholesterolemia Pulmonary Medical History: Reports: Hx COPD EENT Medical History: Reports: None Neurological Medical History: Reports: None Endocrine Medical History: Reports: None, Hx Hypothyroidism - After having her thyroid removed for cancer in October, Renal/ Medical History: Reports: Hx Kidney Stones. Denies: Hx Peritoneal Dialysis Malignancy Medical History: Reports: None, Hx Breast Cancer GI Medical History: Reports: Hx Gastroesophageal Reflux Disease, Hx Hiatal Hernia Musculoskeletal Medical History: Reports Hx Arthritis, Reports Hx Multiple Sclerosis - per pt although the lp'S were negative Psychiatric Medical History: Reports: Hx Anxiety - This is based on reviewing her multiple ER visits. Past Surgical History: Reports: Hx Appendectomy, Hx Bowel Surgery, Hx Section, Hx Cholecystectomy, Hx Hysterectomy, Hx Mastectomy, Hx Orthopedic Surgery - left rotator, Hx Thyroid Surgery, Hx Urinary Tract Surgery - BLADDER POLYPS REMOVED - Immunizations Hx Diphtheria, Pertussis, Tetanus Vaccination: Yes Hx Pneumococcal Vaccination: 10/02/10 Review of Systems - Review of Systems Constitutional: No symptoms reported EENT: No symptoms reported Cardiovascular: No symptoms reported Respiratory: No symptoms reported Gastrointestinal: No symptoms reported Genitourinary: No symptoms reported Female Genitourinary: No symptoms reported Musculoskeletal: Muscle pain, Muscle stiffness, Neck pain Skin: No symptoms reported Hematologic/Lymphatic: No symptoms reported Neurological/Psychological: No symptoms reported -: Yes All other systems reviewed and negative Physical Exam - Vital signs Vitals: Temp Pulse Resp BP Pulse Ox 98.2 F 60 18 96/57 L 97 06/28/18 12:11 06/28/18 12:11 06/28/18 12:11 06/28/18 12:11 06/28/18 12:11 Interpretation: Hypotensive, Other - Blood pressure slightly low but patient states that is her baseline - Notes Notes: Slightly uncomfortable appearing disheveled female - General General appearance: Alert In distress: None - Respiratory Respiratory status: No respiratory distress Chest status: Nontender Breath sounds: Normal Chest palpation: Normal - Back Back: Normal, Tender, Vertebra tenderness, Other - Examination of the neck and upper back show the patient has some reproducible spasms are palpable palpable spasms along the right side of the neck along the trapezius line most on the right. She has decreased range of motion in all planes rotation to the right is nonexistent she has to look straight ahead to the left patient able to turn about 25-30. Flexion is a little better she can get full flexion chin to chest however when she tries to tilt her head back she has more discomfort though limited. - Extremities General upper extremity: Normal inspection, Normal ROM General lower extremity: Normal inspection, Normal ROM - Neurological Cognition: Normal Orientation: AAOx4 Ricardo Coma Scale Eye Opening: Spontaneous Ricardo Coma Scale Verbal: Oriented [place] Coma Scale Motor: Obeys Commands [place] Coma Scale Total: 15 Speech: Normal Course - Re-evaluation Re-evalutation: 06/28/18 13:57 At this point patient not having any falls x-ray will not help with anything. I informed patient that she has spasm in the neck we will treat her with some Robaxin and we will also treat her with some tramadol. I started to explain that ibuprofen would help patient stated that it will not I told her to continue with the Tylenol she got upset because it is not strong enough. When I asked her what would work for her she stated OxyContin I informed her that would not happen and I was going to give her a muscle relaxer and the tramadol she accepted that plan but was not very happy. - Vital Signs Vital signs: Temp Pulse Resp BP Pulse Ox 98.2 F 60 18 96/57 L 97 06/28/18 12:11 06/28/18 12:11 06/28/18 12:11 06/28/18 12:11 06/28/18 12:11 Discharge - Discharge Clinical Impression: Cervical strain, acute Qualifiers: Encounter type: initial encounter Qualified Code(s): S16.1XXA - Strain of muscle, fascia and tendon at neck level, initial encounter Disposition: HOME, SELF-CARE Instructions: Neck Injury (Cervical Strain) ([facility]) Additional Instructions: Home and ice the neck 3 times a day. Then he may start using moist heat 3 times a day. Medication as prescribed as we discussed you can still take Tylenol in combination with the medications to help. Light stretching of the neck starting tomorrow. If pain continues she will need to follow-up with your primary care and/or orthopedic doctor for a reevaluation. Should you have any other problems between now and then you may return to ER for recheck. Prescriptions: Lidocaine [Lidoderm 5% (700 mg) Transdermal Patch] 1 patch TP DAILY PRN #5 adh..patch PRN Reason: Lidocaine [Lidoderm 5% (700 mg) Transdermal Patch] 1 patch TP DAILY #5 adh..patch Methocarbamol [Robaxin 500 mg Tablet] 500 mg PO BID PRN #10 tablet PRN Reason: Methocarbamol [Robaxin 500 mg Tablet] 500 mg PO BID #10 tablet Tramadol HCl 50 mg PO TID PRN #9 tablet PRN Reason: Tramadol HCl 50 mg PO TID PRN #9 tablet PRN Reason: Referrals: CARLENE BAKER MD [Primary Care Provider] - Follow up as needed
== END 2018-06-28 14:18 | disposition home or self-care (01) ==
LOC: ER 11:20
DX: S16.1XXA Strain of muscle, fascia and tendon at neck level, initial encounter (principal); X58.XXXA Exposure to other specified factors, initial encounter
CPT/HCPCS: 99283

== ENCOUNTER 2018-07-03 18:56 | Emergency (ER) | payer BC ==
--- NOTE | 2018-07-03 20:49 | ER Document Report ---
ED Medical Screen (RME) - General Chief Complaint: Neck Problem Stated Complaint: NECK PAIN Time Seen by Provider: 07/03/18 20:42 Mode of Arrival: Ambulatory Information source: Patient Notes: Patient is a 68-year-old female who presents with chief complaint of neck pain. Patient reports she was seen here 5 days ago for the same pain. Patient reports this happened while she was doing yard work. Patient reports she has been taking the Robaxin but is not taking the tramadol that was prescribed. Patient states that she is "scared of taking tramadol" she has heard bad things about it. Patient reports that she would prefer to have something like oxycodone. Patient reports that she is unable to move her neck at all. Patient reports that she is supposed to have a MRI of her neck and head at [facility] next month so she is declining any imaging here today. Exam: Patient alert, oriented with no acute distress noted. Tenderness to palpation to posterior cervical spine. I have greeted and performed a rapid initial assessment of this patient. A comprehensive ED assessment and evaluation of the patient, analysis of test results and completion of the medical decision making process will be conducted by additional ED providers. Dictation of this chart was performed using voice recognition software; therefore, there may be some unintended grammatical errors. TRAVEL OUTSIDE OF THE [place] IN LAST 30 DAYS: No - Related Data Allergies/Adverse Reactions: Sulfa (Sulfonamide Antibiotics) Allergy (Severe, Verified 07/03/18 18:58) heart beats very fast latex Allergy (Verified 07/03/18 18:58) NSAIDS (Non-Steroidal Anti-Inflamma [Nsaids] Allergy (Verified 07/03/18 18:58) ciprofloxacin [From Cipro] Adverse Reaction (Verified 07/03/18 18:58) levofloxacin [From Levaquin] Adverse Reaction (Verified 07/03/18 18:58) nitrofurantoin Adverse Reaction (Verified 07/03/18 18:58) Past Medical History - Social History Family history: None - Past Medical History Cardiac Medical History: Reports: Hx Coronary Artery Disease - cholesterol, Hx Hypercholesterolemia Pulmonary Medical History: Reports: Hx COPD Endocrine Medical History: Reports: Hx Hypothyroidism - After having her thyroid removed for cancer in October, Renal/ Medical History: Reports: Hx Kidney Stones. Denies: Hx Peritoneal Dialysis Malignancy Medical History: Reports: Hx Breast Cancer GI Medical History: Reports: Hx Gastroesophageal Reflux Disease, Hx Hiatal Hernia Musculoskeltal Medical History: Reports Hx Arthritis, Reports Hx Multiple Sclerosis - per pt although the lp'S were negative Psychiatric Medical History: Reports: Hx Anxiety - This is based on reviewing her multiple ER visits. Past Surgical History: Reports: Hx Appendectomy, Hx Bowel Surgery, Hx Section, Hx Cholecystectomy, Hx Hysterectomy, Hx Mastectomy, Hx Orthopedic Surgery - left rotator, Hx Thyroid Surgery, Hx Urinary Tract Surgery - BLADDER POLYPS REMOVED - Immunizations Hx Diphtheria, Pertussis, Tetanus Vaccination: Yes Physical Exam - Vital signs Vitals: Temp Pulse Resp BP Pulse Ox 97.8 F 56 L 16 92/53 L 96 07/03/18 19:24 07/03/18 19:24 07/03/18 19:24 07/03/18 19:24 07/03/18 19:24 Course - Vital Signs Vital signs: Temp Pulse Resp BP Pulse Ox 97.8 F 56 L 16 92/53 L 96 07/03/18 19:24 07/03/18 19:24 07/03/18 19:24 07/03/18 19:24 07/03/18 19:24 Doctor's Discharge - Discharge Referrals: CARLENE BAKER MD [Primary Care Provider] - Follow up as needed
[2018-07-04] MEDS ORDERED: HYDROCODONE/ACETAMINOPHEN 5-325 MG (6 TAB/ER DISP) PO PRN (00:29)
--- NOTE | 2018-07-04 00:32 | ER Document Report ---
ED General - General Chief Complaint: Neck Problem Stated Complaint: NECK PAIN Time Seen by Provider: 07/03/18 20:42 Mode of Arrival: Ambulatory Notes: Patient is a 68-year-old female who presents with approximately 1 week of neck pain. She describes this as a spasming, throbbing, constant pain to her bilateral neck that started after she was raking her yard. She was seen several days in the emergency department for the same, prescribed Robaxin and tramadol. She states she is afraid of the tramadol has not been taking it. She is requesting an alternative pain medication and she states this is the only reason for her return visit and overall her symptoms have improved somewhat since her initial visit. She denies any focal weakness, numbness, paresthesias, headache, chest pain or shortness of breath. She denies any direct trauma to the neck. TRAVEL OUTSIDE OF THE [place] IN LAST 30 DAYS: No - Related Data Allergies/Adverse Reactions: Sulfa (Sulfonamide Antibiotics) Allergy (Severe, Verified 07/03/18 18:58) heart beats very fast latex Allergy (Verified 07/03/18 18:58) NSAIDS (Non-Steroidal Anti-Inflamma [Nsaids] Allergy (Verified 07/03/18 18:58) ciprofloxacin [From Cipro] Adverse Reaction (Verified 07/03/18 18:58) levofloxacin [From Levaquin] Adverse Reaction (Verified 07/03/18 18:58) nitrofurantoin Adverse Reaction (Verified 07/03/18 18:58) Past Medical History - General Information source: Patient - Social History Smoking Status: Never Smoker Frequency of alcohol use: None Drug Abuse: None Lives with: Alone Family History: Reviewed & Not Pertinent Patient has suicidal ideation: No Patient has homicidal ideation: No - Past Medical History Cardiac Medical History: Reports: Hx Coronary Artery Disease - cholesterol, Hx Hypercholesterolemia Pulmonary Medical History: Reports: Hx COPD Endocrine Medical History: Reports: Hx Hypothyroidism - After having her thyroid removed for cancer in October, Renal/ Medical History: Reports: Hx Kidney Stones. Denies: Hx Peritoneal Dialysis Malignancy Medical History: Reports: Hx Breast Cancer GI Medical History: Reports: Hx Gastroesophageal Reflux Disease, Hx Hiatal Hernia Musculoskeletal Medical History: Reports Hx Arthritis, Reports Hx Multiple Sclerosis - per pt although the lp'S were negative Psychiatric Medical History: Reports: Hx Anxiety - This is based on reviewing her multiple ER visits. Past Surgical History: Reports: Hx Appendectomy, Hx Bowel Surgery, Hx Section, Hx Cholecystectomy, Hx Hysterectomy, Hx Mastectomy, Hx Orthopedic Surgery - left rotator, Hx Thyroid Surgery, Hx Urinary Tract Surgery - BLADDER POLYPS REMOVED - Immunizations Hx Diphtheria, Pertussis, Tetanus Vaccination: Yes Hx Pneumococcal Vaccination: 10/02/10 Review of Systems - Review of Systems Notes: Constitutional: Negative for fever. HENT: Negative for sore throat. Eyes: Negative for visual changes. Cardiovascular: Negative for chest pain. Respiratory: Negative for shortness of breath. Gastrointestinal: Negative for abdominal pain, vomiting or diarrhea. Genitourinary: Negative for dysuria. Musculoskeletal: Positive for neck pain Skin: Negative for rash. Neurological: Negative for headaches, weakness or numbness. 10 point ROS negative except as marked above and in HPI. Physical Exam - Vital signs Vitals: Temp Pulse Resp BP Pulse Ox 97.8 F 56 L 16 92/53 L 96 07/03/18 19:24 07/03/18 19:24 07/03/18 19:24 07/03/18 19:24 07/03/18 19:24 Interpretation: Bradycardic Notes: PHYSICAL EXAMINATION: GENERAL: Well-appearing, well-nourished and in no acute distress. HEAD: Atraumatic, normocephalic. EYES: Pupils equal round and reactive to light, extraocular movements intact, sclera anicteric, conjunctiva are normal. ENT: nares patent, oropharynx clear without exudates. Moist mucous membranes. NECK: Pain with range of motion to 45 bilaterally but she is able to complete this range of motion. There is no midline spinal step-offs or deformities. Pain on palpation of the sternocleidomastoid muscles bilaterally as well as the trapezius muscles bilaterally. LUNGS: Breath sounds clear to auscultation bilaterally and equal. No wheezes rales or rhonchi. HEART: Regular rate and rhythm without murmurs ABDOMEN: Soft, nontender, normoactive bowel sounds. No guarding, no rebound. No masses appreciated. EXTREMITIES: Normal range of motion, no pitting or edema. No cyanosis. NEUROLOGICAL: No focal neurological deficits. Moves all extremities spontaneously and on command. PSYCH: Normal mood, normal affect. SKIN: Warm, Dry, normal turgor, no rashes or lesions noted. Course - Re-evaluation Re-evalutation: 07/04/18 00:31 Patient presents with musculoskeletal neck pain. Has been present for approximately 1 week. The patient has no midline cervical spine tenderness, has pain along the sternal cleidomastoid and trapezius muscles bilaterally. She is able to rotate her neck although clearly has some pain with doing so. She has no neurologic deficits on examination, denies any numbness or weakness. She is here because she did not want wish to take tramadol, is asking for something as an alternative. She has been given a very small amount of [place] as a dispense. I have encouraged close outpatient follow-up, massage therapy, and physical therapy. At this time will discharge with return precautions and follow-up recommendations. Verbal discharge instructions given a the bedside and opportunity for questions given. Medication warnings reviewed. Patient is in agreement with this plan and has verbalized understanding of return precautions and the need for primary care follow-up in the next 24-72 hours. - Vital Signs Vital signs: Temp Pulse Resp BP Pulse Ox 98 F 68 20 110/52 L 99 07/04/18 00:39 07/04/18 00:39 07/04/18 00:39 07/04/18 00:39 07/04/18 00:39 Discharge - Discharge Clinical Impression: Neck pain Cervical strain, acute Qualifiers: Encounter type: initial encounter Qualified Code(s): S16.1XXA - Strain of muscle, fascia and tendon at neck level, initial encounter Condition: Good Disposition: HOME, SELF-CARE Additional Instructions: For your pain: Take ibuprofen 600 mg and acetaminophen 650 mg every 6 hours together as needed for pain. If this does not control your pain you may take the [place] with which you have been sent home. Please follow-up with your primary care physician if you do not have improving your symptoms in the next 1- 2 weeks. Please return immediately if you develop weakness, numbness, spreading redness from the area, or any other symptoms that are concerning to you. Referrals: CARLENE BAKER MD [Primary Care Provider] - Follow up as needed
[2018-07-04 00:40] VITALS: BP 110/52
== END 2018-07-04 00:38 | disposition home or self-care (01) ==
LOC: ER 18:56
DX: S16.1XXA Strain of muscle, fascia and tendon at neck level, initial encounter (principal); X58.XXXA Exposure to other specified factors, initial encounter
CPT/HCPCS: 99283

== ENCOUNTER 2018-08-24 18:08 | Emergency (ER) | payer BC, OTHER ==
--- NOTE | 2018-08-24 18:40 | ER Document Report ---
ED Medical Screen (RME) - General Chief Complaint: Abdominal Pain Stated Complaint: ABDOMINAL PAIN Time Seen by Provider: 08/24/18 18:29 Notes: Patient is a 88-year-old female that presents to the emergency department for chief complaint of abdominal distention, thrush, and several other complaints. States she is been having the symptoms of thrush over the last 2 weeks, diagnosed by her primary care physician Dr. Baker, currently on nystatin and states it is not working and she is having difficulty swallowing, she also feels she may have a bowel blockage that is concerning her as well, took MiraLAX and mag citrate prior to ED arrival. ROS: Other than noted above, the 12 point review of systems was reviewed with the patient and were negative, all pertinent findings are included in the HPI. PHYSICAL EXAMINATION: Vital signs reviewed. GENERAL: Well-appearing, well-nourished and anxious HEAD: Atraumatic, normocephalic. EYES: Pupils equal round extraocular movements intact, conjunctiva are normal. ENT: Nares patent NECK: Normal range of motion CV: Heart regular rate and rhythm LUNGS: No respiratory distress Musculoskeletal: Normal range of motion NEUROLOGICAL: Normal speech PSYCH: Patient is anxious on exam MDM: Patient seen and examined for rapid initial assessment. Vital signs reviewed. A comprehensive ED assessment and evaluation of the patient, analysis of test results and completion of the medical decision making process will be conducted by additional ED providers. *Note is created using voice recognition software and may contain spelling, syntax or grammatical errors. TRAVEL OUTSIDE OF THE [place] IN LAST 30 DAYS: No - Related Data Allergies/Adverse Reactions: Sulfa (Sulfonamide Antibiotics) Allergy (Severe, Verified 08/24/18 18:36) heart beats very fast latex Allergy (Verified 08/24/18 18:36) NSAIDS (Non-Steroidal Anti-Inflamma [Nsaids] Allergy (Verified 08/24/18 18:36) ciprofloxacin [From Cipro] Adverse Reaction (Verified 08/24/18 18:36) levofloxacin [From Levaquin] Adverse Reaction (Verified 08/24/18 18:36) nitrofurantoin Adverse Reaction (Verified 08/24/18 18:36) Past Medical History - Social History Frequency of alcohol use: Rare Drug Abuse: None Family history: None - Past Medical History Cardiac Medical History: Reports: Hx Coronary Artery Disease - cholesterol, Hx Hypercholesterolemia Pulmonary Medical History: Reports: Hx COPD Endocrine Medical History: Reports: Hx Hypothyroidism - After having her thyroid removed for cancer in October, Renal/ Medical History: Reports: Hx Kidney Stones. Denies: Hx Peritoneal Dialysis Malignancy Medical History: Reports: Hx Breast Cancer GI Medical History: Reports: Hx Gastroesophageal Reflux Disease, Hx Hiatal Hernia Musculoskeltal Medical History: Reports Hx Arthritis, Reports Hx Multiple Sclerosis - per pt although the lp'S were negative Psychiatric Medical History: Reports: Hx Anxiety - This is based on reviewing her multiple ER visits. Past Surgical History: Reports: Hx Appendectomy, Hx Bowel Surgery, Hx Section, Hx Cholecystectomy, Hx Hysterectomy, Hx Mastectomy, Hx Orthopedic Surgery - left rotator, Hx Thyroid Surgery, Hx Urinary Tract Surgery - BLADDER POLYPS REMOVED - Immunizations Hx Diphtheria, Pertussis, Tetanus Vaccination: Yes Physical Exam - Vital signs Vitals: Temp Pulse Resp BP Pulse Ox 98.1 F 74 17 104/60 95 08/24/18 18:27 08/24/18 18:27 08/24/18 18:27 08/24/18 18:27 08/24/18 18:27 Course - Vital Signs Vital signs: Temp Pulse Resp BP Pulse Ox 98.1 F 74 17 104/60 95 08/24/18 18:27 08/24/18 18:27 08/24/18 18:27 08/24/18 18:27 08/24/18 18:27 Doctor's Discharge - Discharge Referrals: CARLENE BAKER MD [Primary Care Provider] - Follow up as needed
[2018-08-24] MEDS ORDERED: NORMAL SALINE 1000 ML 1,000 ML IV ONE (18:45)
--- NOTE | 2018-08-24 19:25 | RADIOLOGY REPORT (SQ) ---
EXAM DESCRIPTION: CHEST 2 VIEWS COMPLETED DATE/TIME: 08/24/2018 7:16 pm REASON FOR STUDY: shortness of breath COMPARISON: 11/16/2017 EXAM PARAMETERS: NUMBER OF VIEWS: two views TECHNIQUE: Digital Frontal and Lateral radiographic views of the chest acquired. RADIATION DOSE: NA LIMITATIONS: none FINDINGS: LUNGS AND PLEURA: Lungs are hyperexpanded. There is no infiltrate or effusion. There is no mass. MEDIASTINUM AND HILAR STRUCTURES: No masses or contour abnormalities. HEART AND VASCULAR STRUCTURES: Heart normal size. No evidence for failure. BONES: No acute findings. HARDWARE: None in the chest. OTHER: No other significant finding. IMPRESSION: Chronic lung changes with no acute cardiopulmonary disease. TECHNICAL DOCUMENTATION: JOB ID: [id number] [employer]- All Rights Reserved Reading location - IP/workstation name: [email or web address]
--- NOTE | 2018-08-24 19:26 | RADIOLOGY REPORT (SQ) ---
EXAM DESCRIPTION: ABDOMEN 2 VIEWS COMPLETED DATE/TIME: 08/24/2018 7:16 pm REASON FOR STUDY: abdominal pain, distention COMPARISON: 05/20/2018 NUMBER OF VIEWS: Two views. TECHNIQUE: Supine and erect/decubitus radiographic images of the abdomen acquired. LIMITATIONS: None. FINDINGS: FREE AIR: None. No abnormal gas collections. LUNG BASES: Clear. BOWEL GAS PATTERN: Nonobstructive pattern. No dilated loops or air fluid levels. CALCIFICATIONS: No suspicious calcifications. SOFT TISSUES: No gross mass or suggestion of organomegaly. HARDWARE: None in the abdomen. BONES: No acute fracture. No worrisome bone lesions. OTHER: No other significant finding. IMPRESSION: NO RADIOGRAPHIC EVIDENCE FOR ACUTE ABDOMINAL DISEASE. TECHNICAL DOCUMENTATION: JOB ID: [id number] [employer]- All Rights Reserved Reading location - IP/workstation name: [email or web address]
[2018-08-24 19:58] LABS: ABSOLUTE LYMPHOCYTES (AUTO) 2.6 10^3/uL (0.5-4.7); ABSOLUTE MONOCYTES (AUTO) 0.7 10^3/uL (0.1-1.4); BASOPHILS % (AUTO) 0.6 % (0-2); EOSINOPHILS % (AUTO) 0.7 % (0-6); HEMATOCRIT 44.4 % (36.0-47.0); HEMOGLOBIN 15.4 g/dL (12.0-15.5); LYMPHOCYTES % (AUTO) 40.5 % (13-45); MEAN CORPUSCULAR HEMOGLOBIN 32.8 pg (27.0-33.4); MEAN CORPUSCULAR HGB CONC 34.7 g/dL (32.0-36.0); MEAN CORPUSCULAR VOLUME 95 fl (80-97); MONOCYTES % (AUTO) 10.4 % (3-13); PLATELET COUNT 255 10^3/uL (150-450); RED BLOOD COUNT 4.69 10^6/uL (3.72-5.28); RED CELL DISTRIBUTION WIDTH 13.2 % (11.5-14.0); SEGMENTED NEUTROPHILS % (AUTO) 47.8 % (42-78); TOTAL CELLS COUNTED % (AUTO) 100 %; WHITE BLOOD COUNT 6.3 10^3/uL (4.0-10.5)
[2018-08-24 20:05] LABS: AMORPHOUS SEDIMENT,URINE 1+ /HPF; APPEARANCE,URINE TURBID; BILIRUBIN,URINE NEGATIVE (NEGATIVE); COLOR,URINE YELLOW; GLUCOSE, URINE NEGATIVE (NEGATIVE); KETONES,URINE TRACE mg/dL (NEGATIVE); LEUKOCYTE ESTERASE,URINE TRACE (NEGATIVE); NITRITE,URINE NEGATIVE (NEGATIVE); PROTEIN,URINE NEGATIVE (NEGATIVE); UROBILINOGEN,URINE NEGATIVE mg/dL (<2.0)
[2018-08-24 20:19] LABS: ALANINE AMINOTRANSFERASE 49 U/L (9-52); ALBUMIN 4.7 g/dL (3.5-5.0); ALKALINE PHOSPHATASE 76 U/L (38-126); ANION GAP 12 (5-19); ASPARTATE AMINO TRANSFERASE 67 U/L (14-36); BILIRUBIN,DIRECT 0.1 mg/dL (0.0-0.4); BILIRUBIN,TOTAL 0.7 mg/dL (0.2-1.3); BLOOD UREA NITROGEN 21 mg/dL (7-20); CALCIUM 10.1 mg/dL (8.4-10.2); CARBON DIOXIDE 33 mmol/L (22-30); CHLORIDE 102 mmol/L (98-107); CREATINE KINASE 40 U/L (30-135); GLUCOSE 89 mg/dL (75-110); POTASSIUM 4.4 mmol/L (3.6-5.0)
--- NOTE | 2018-08-24 20:20 | ER Document Report ---
ED General - General Chief Complaint: Abdominal Pain Stated Complaint: ABDOMINAL PAIN Time Seen by Provider: 08/24/18 18:29 Mode of Arrival: Ambulatory Information source: Patient Notes: 68-year-old female presents emergency department with multiple complaints. Patient states that she was diagnosed with thrush 2 weeks ago. She states that her primary care physician, Dr. Baker started her on nystatin for 14 days. She states that she is taken it for the last 12 days but has not had any relief of symptoms. Patient states that she still is having pain with swallowing. Patient is also concerned because she has not had a bowel movement in a week. Patient states that she has had a small bowel obstruction in the past. Patient is concerned that that is what is going on currently. She states that she is tried MiraLAX and magnesium citrate without any relief of symptoms. Patient denies any abdominal pain, nausea, vomiting, diarrhea, dysuria, hematuria, chest pain, shortness of breath. TRAVEL OUTSIDE OF THE [place] IN LAST 30 DAYS: No - HPI Onset: Last week Onset/Duration: Gradual Quality of pain: No pain Severity: Mild Associated symptoms: Sore throat Exacerbated by: Denies Relieved by: Denies Similar symptoms previously: Yes Recently seen / treated by doctor: Yes - Related Data Allergies/Adverse Reactions: Sulfa (Sulfonamide Antibiotics) Allergy (Severe, Verified 08/24/18 18:36) heart beats very fast latex Allergy (Verified 08/24/18 18:36) NSAIDS (Non-Steroidal Anti-Inflamma [Nsaids] Allergy (Verified 08/24/18 18:36) ciprofloxacin [From Cipro] Adverse Reaction (Verified 08/24/18 18:36) levofloxacin [From Levaquin] Adverse Reaction (Verified 08/24/18 18:36) nitrofurantoin Adverse Reaction (Verified 08/24/18 18:36) Past Medical History - General Information source: Patient - Social History Smoking Status: Former Smoker Frequency of alcohol use: Rare Drug Abuse: None Family History: Reviewed & Not Pertinent Patient has suicidal ideation: No Patient has homicidal ideation: No - Past Medical History Cardiac Medical History: Reports: Hx Coronary Artery Disease - cholesterol, Hx Hypercholesterolemia Pulmonary Medical History: Reports: Hx COPD Endocrine Medical History: Reports: Hx Hypothyroidism - After having her thyroid removed for cancer in October, Renal/ Medical History: Reports: Hx Kidney Stones. Denies: Hx Peritoneal Dialysis Malignancy Medical History: Reports: Hx Breast Cancer GI Medical History: Reports: Hx Gastroesophageal Reflux Disease, Hx Hiatal Hernia Musculoskeletal Medical History: Reports Hx Arthritis, Reports Hx Multiple Sclerosis - per pt although the lp'S were negative Psychiatric Medical History: Reports: Hx Anxiety - This is based on reviewing her multiple ER visits. Past Surgical History: Reports: Hx Appendectomy, Hx Bowel Surgery, Hx Section, Hx Cholecystectomy, Hx Hysterectomy, Hx Mastectomy, Hx Orthopedic Surgery - left rotator, Hx Thyroid Surgery, Hx Urinary Tract Surgery - BLADDER POLYPS REMOVED - Immunizations Hx Diphtheria, Pertussis, Tetanus Vaccination: Yes Hx Pneumococcal Vaccination: 10/02/10 Review of Systems - Review of Systems Constitutional: No symptoms reported EENT: Difficulty swallowing Cardiovascular: No symptoms reported Respiratory: No symptoms reported Gastrointestinal: Constipation Genitourinary: No symptoms reported Female Genitourinary: No symptoms reported Musculoskeletal: No symptoms reported Skin: No symptoms reported Hematologic/Lymphatic: No symptoms reported Neurological/Psychological: No symptoms reported -: Yes All other systems reviewed and negative Physical Exam - Vital signs Vitals: Temp Pulse Resp BP Pulse Ox 98.1 F 74 17 104/60 95 08/24/18 18:27 08/24/18 18:27 08/24/18 18:27 08/24/18 18:27 08/24/18 18:27 - Notes Notes: PHYSICAL EXAMINATION: GENERAL: Well-appearing, well-nourished and in no acute distress. HEAD: Atraumatic, normocephalic. EYES: Pupils equal round and reactive to light, extraocular movements intact, conjunctiva are normal. ENT: Nares patent, oropharynx clear without exudates. Moist mucous membranes. White exudate on the tongue. Scrapes off. NECK: Normal range of motion, supple without lymphadenopathy LUNGS: Breath sounds clear to auscultation bilaterally and equal. No wheezes rales or rhonchi. HEART: Regular rate and rhythm without murmurs ABDOMEN: Soft, nontender, nondistended abdomen. No guarding, no rebound. No masses appreciated. Female : deferred Musculoskeletal: Normal range of motion, no pitting or edema. No cyanosis. NEUROLOGICAL: Cranial nerves grossly intact. Normal speech, normal gait. Normal sensory, motor exams PSYCH: Normal mood, normal affect. SKIN: Warm, Dry, normal turgor, no rashes or lesions noted. Course - Re-evaluation Re-evalutation: 08/24/18 20:23 EKG: Ventricular rate 57, QRS duration 94, QTc 495, sinus rhythm. No ST segment elevation. 08/24/18 20:42 Labs and imaging obtained. No signs of a small bowel obstruction. White blood cell count is normal. No signs of infection via urinalysis. I discussed results with the patient. I offered her a soapsuds enema in the emergency department. Patient declines. Patient states that she will try over-the- counter suppositories and medications for constipation. Patient currently is on nystatin for her thrush. Patient states that she has 2 more days of medication left. I told her that she can either continue taking the medication for her thrush or I can change up the medication. Patient states that she prefers to stay on the same medication and follow-up with her primary care physician. I will provide the patient with GI follow up if she has worsening symptoms. I instructed the patient to continue taking her medication as directed , to follow-up with her primary care physician this week for reevaluation, and to return to the emergency department if she is having any worsening symptoms. Patient is agreeable to plan of care. 08/24/18 20:47 - Vital Signs Vital signs: Temp Pulse Resp BP Pulse Ox 98.1 F 74 17 104/60 95 08/24/18 18:27 08/24/18 18:27 08/24/18 18:27 08/24/18 18:27 08/24/18 18:27 - Laboratory Result Diagrams: 08/24/18 19:46 08/24/18 19:46 Laboratory results interpreted by me: 08/24/18 08/24/18 19:46 19:46 Sodium 147.0 H Carbon Dioxide 33 H BUN 21 H Est GFR (Non-Af Amer) 58 L AST 67 H Urine Ketones TRACE H Ur Leukocyte Esterase TRACE H Urine Ascorbic Acid 40 H Discharge - Discharge Clinical Impression: Thrush of mouth and esophagus Constipation Qualifiers: Constipation type: unspecified constipation type Qualified Code(s): K59.00 - Constipation, unspecified Condition: Good Disposition: HOME, SELF-CARE Instructions: Constipation ([facility]), Oral Thrush ([facility]) Referrals: CARLENE BAKER MD [Primary Care Provider] - Follow up as needed VALARIE GARVIN MD [ACTIVE STAFF] - Follow up as needed
[2018-08-24 20:58] VITALS: BP 103/41
--- NOTE | 2018-08-25 07:23 | EKG REPORT ---
SEVERITY:- BORDERLINE ECG - SINUS RHYTHM LOW VOLTAGE IN FRONTAL LEADS BORDERLINE PROLONGED QT INTERVAL : Confirmed by: Shanta Ewing 25-Aug-2018 07:22:28
== END 2018-08-24 20:58 | disposition home or self-care (01) ==
LOC: ER 18:08
DX: K59.00 Constipation, unspecified (principal); B37.81 Candidal esophagitis; B37.0 Candidal stomatitis; I25.10 Atherosclerotic heart disease of native coronary artery without angina pectoris; J44.9 Chronic obstructive pulmonary disease, unspecified; Z87.19 Personal history of other diseases of the digestive system; Z88.2 Allergy status to sulfonamides; Z91.040 Latex allergy status; Z88.8 Allergy status to other drugs, medicaments and biological substances; Z87.891 Personal history of nicotine dependence; Z85.3 Personal history of malignant neoplasm of breast
CPT/HCPCS: 93005; 99284; 96360; 36415; 82550; 85025; 80053; 81001; 84484; 74019; 71046; 93010; J7030

== ENCOUNTER → 2018-10-14 | Outpatient (CLI) | payer BC | LOC: OD 10:40 | PROVIDERS: ATTEND Otolaryngology | DX: K14.6 Glossodynia (principal) | CPT/HCPCS: 36415; 86235 ==

== ENCOUNTER 2018-10-18 01:44 | Emergency (ER) | payer BC ==
[2018-10-18] MEDS ORDERED: MAG HYDROX/AL HYDROX/SIMETH SUSP 30 ML UDCUP PO ONE (02:32)
[2018-10-18] MEDS ORDERED: LIDOCAINE 2% VISCOUS SOLN 20 ML UDCUP PO ONE (02:32)
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
--- NOTE | 2018-10-18 03:19 | RADIOLOGY REPORT (SQ) ---
CLINICAL HISTORY: chest discomfort COMPARISON: November 16, 2017. TECHNIQUE: XR CHEST 1 VIEW 10/18/2018 2:32 AM AMBULATORY SERVICE REPRESENTATIVE FINDINGS: Cardiac silhouette is normal in size. Lungs are clear without consolidation, atelectasis, mass or edema. There is no pleural effusion. There is no pneumothorax. There are no acute osseous findings. IMPRESSION: Clear lungs.
[2018-10-18 03:32] LABS: APPEARANCE,URINE SLIGHTLY-CLOUDY; BILIRUBIN,URINE NEGATIVE (NEGATIVE); COLOR,URINE YELLOW; GLUCOSE, URINE NEGATIVE (NEGATIVE); KETONES,URINE NEGATIVE (NEGATIVE); LEUKOCYTE ESTERASE,URINE NEGATIVE (NEGATIVE); NITRITE,URINE NEGATIVE (NEGATIVE); PROTEIN,URINE NEGATIVE (NEGATIVE); URINE SPECIFIC GRAVITY 1.008; UROBILINOGEN,URINE NEGATIVE mg/dL (<2.0)
[2018-10-18 03:33] LABS: ABSOLUTE BASOPHILS # (AUTO) 0.1 10^3/uL (0.0-0.2); ABSOLUTE EOSINOPHILS # (AUTO) 0.1 10^3/uL (0.0-0.6); ABSOLUTE LYMPHOCYTES (AUTO) 1.9 10^3/uL (0.5-4.7); ABSOLUTE MONOCYTES (AUTO) 0.4 10^3/uL (0.1-1.4); BASOPHILS % (AUTO) 1.1 % (0-2); EOSINOPHILS % (AUTO) 2.9 % (0-6); HEMATOCRIT 40.9 % (36.0-47.0); HEMOGLOBIN 14.2 g/dL (12.0-15.5); LYMPHOCYTES % (AUTO) 42.3 % (13-45); MEAN CORPUSCULAR HEMOGLOBIN 32.9 pg (27.0-33.4); MEAN CORPUSCULAR HGB CONC 34.7 g/dL (32.0-36.0); MEAN CORPUSCULAR VOLUME 95 fl (80-97); MONOCYTES % (AUTO) 8.9 % (3-13); PLATELET COUNT 245 10^3/uL (150-450); RED BLOOD COUNT 4.31 10^6/uL (3.72-5.28); RED CELL DISTRIBUTION WIDTH 13.5 % (11.5-14.0); SEGMENTED NEUTROPHILS % (AUTO) 44.8 % (42-78); TOTAL CELLS COUNTED % (AUTO) 100 %; WHITE BLOOD COUNT 4.5 10^3/uL (4.0-10.5)
[2018-10-18 03:48] LABS: ANION GAP 8 (5-19); BLOOD UREA NITROGEN 20 mg/dL (7-20); CALCIUM 9.3 mg/dL (8.4-10.2); CARBON DIOXIDE 27 mmol/L (22-30); CHLORIDE 106 mmol/L (98-107); GLUCOSE 96 mg/dL (75-110); POTASSIUM 4.5 mmol/L (3.6-5.0); SODIUM 140.8 mmol/L (137-145)
[2018-10-18 04:05] LABS: FREE T4 (FREE THYROXINE) 1.18 ng/dL (0.78-2.19)
[2018-10-18 04:19] LABS: THYROID STIMULATING HORMONE 1.54 uIU/mL (0.47-4.68)
[2018-10-18 04:58] VITALS: BP 100/50
--- NOTE | 2018-10-18 07:36 | EKG REPORT ---
SEVERITY:- ABNORMAL ECG - POSSIBLE ATRIAL ARRHYTHMIA, A-RATE 93 BORDERLINE LEFT AXIS DEVIATION LOW VOLTAGE IN FRONTAL LEADS : Confirmed by: Jefry Lane MD 18-Oct-2018 07:36:18
== END 2018-10-18 04:58 | disposition home or self-care (01) ==
LOC: ER 01:44
DX: R07.81 Pleurodynia (principal); R09.89 Other specified symptoms and signs involving the circulatory and respiratory systems; E78.00 Pure hypercholesterolemia, unspecified; J44.9 Chronic obstructive pulmonary disease, unspecified; E03.9 Hypothyroidism, unspecified; Z87.442 Personal history of urinary calculi; Z85.3 Personal history of malignant neoplasm of breast; Z90.49 Acquired absence of other specified parts of digestive tract; Z90.710 Acquired absence of both cervix and uterus; Z88.2 Allergy status to sulfonamides; Z91.040 Latex allergy status
CPT/HCPCS: 93005; 99284; 36415; 84439; 84443; 85025; 80048; 81001; 84484; 71045; 93010; J3490

== ENCOUNTER 2018-10-25 02:22 | Emergency (ER) | payer BC ==
[2018-10-25 02:30] VITALS: BP 104/61
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
== END 2018-10-25 02:51 | disposition home or self-care (01) ==
LOC: ER 02:22
DX: J02.9 Acute pharyngitis, unspecified (principal); R14.0 Abdominal distension (gaseous); K21.9 Gastro-esophageal reflux disease without esophagitis; T47.0X6A Underdosing of histamine H2-receptor blockers, initial encounter; Z91.128 Patient's intentional underdosing of medication regimen for other reason; Z91.14 Patient's other noncompliance with medication regimen; R10.816 Epigastric abdominal tenderness; E89.0 Postprocedural hypothyroidism; I25.10 Atherosclerotic heart disease of native coronary artery without angina pectoris; J44.9 Chronic obstructive pulmonary disease, unspecified; Z90.49 Acquired absence of other specified parts of digestive tract; Z88.2 Allergy status to sulfonamides; Z91.040 Latex allergy status; Z88.8 Allergy status to other drugs, medicaments and biological substances
CPT/HCPCS: 99282

== ENCOUNTER 2018-11-03 20:29 | Emergency (ER) | payer BC ==
--- NOTE | 2018-11-03 23:11 | ER Document Report ---
ED GI/ - General Chief Complaint: Abdominal Swelling Stated Complaint: ABDOMINAL PAIN Time Seen by Provider: 11/03/18 23:10 Primary Care Provider: CARLENE BAKER MD [Primary Care Provider] - Follow up as needed Information source: Patient Notes: Patient is a 68-year-old female with a past medical history of multiple chronic conditions that are not pertinent to her presentation who presents with recurrent abdominal pain. This is the third visit to the emergency department in the last week for the patient with similar symptoms and complaints, previous encounters resulted in normal workups and discharge. Onset: 2-3 days ago Provocation: Movement Quality: Cramping, achy Radiation: None Severity: Mild to moderate Timing: Constant TRAVEL OUTSIDE OF THE [place] IN LAST 30 DAYS: No - HPI Similar symptoms previously: No Recently seen / treated by doctor: No - Related Data Allergies/Adverse Reactions: Sulfa (Sulfonamide Antibiotics) Allergy (Severe, Verified 08/24/18 18:36) heart beats very fast latex Allergy (Verified 08/24/18 18:36) NSAIDS (Non-Steroidal Anti-Inflamma [Nsaids] Allergy (Verified 08/24/18 18:36) ciprofloxacin [From Cipro] Adverse Reaction (Verified 08/24/18 18:36) levofloxacin [From Levaquin] Adverse Reaction (Verified 08/24/18 18:36) nitrofurantoin Adverse Reaction (Verified 08/24/18 18:36) Past Medical History - General Information source: Patient - Social History Smoking Status: Never Smoker Chew tobacco use (# tins/day): No Frequency of alcohol use: None Drug Abuse: None Lives with: Family Family History: Reviewed & Not Pertinent Patient has suicidal ideation: No Patient has homicidal ideation: No - Past Medical History Cardiac Medical History: Reports: Hx Coronary Artery Disease - cholesterol, Hx Hypercholesterolemia Pulmonary Medical History: Reports: Hx COPD EENT Medical History: Reports: None Neurological Medical History: Reports: None Endocrine Medical History: Reports: Hx Hypothyroidism - After having her thyroid removed for cancer in October, Renal/ Medical History: Reports: Hx Kidney Stones. Denies: Hx Peritoneal Dialysis Malignancy Medical History: Reports: Hx Breast Cancer GI Medical History: Reports: Hx Gastroesophageal Reflux Disease, Hx Hiatal Hernia Musculoskeletal Medical History: Reports Hx Arthritis, Reports Hx Multiple Sclerosis - per pt although the lp'S were negative Skin Medical History: Reports None Psychiatric Medical History: Reports: Hx Anxiety - This is based on reviewing her multiple ER visits. Traumatic Medical History: Reports: None Infectious Medical History: Reports: None Past Surgical History: Reports: Hx Appendectomy, Hx Bowel Surgery, Hx Section, Hx Cholecystectomy, Hx Hysterectomy, Hx Mastectomy, Hx Orthopedic Surgery - left rotator, Hx Thyroid Surgery, Hx Urinary Tract Surgery - BLADDER POLYPS REMOVED - Immunizations Immunizations up to date: Yes Hx Diphtheria, Pertussis, Tetanus Vaccination: Yes Hx Pneumococcal Vaccination: 10/02/10 Review of Systems - Review of Systems Notes: REVIEW OF SYSTEMS: CONSTITUTIONAL : Denies fever, chills, or sweats. Denies recent illness. EENT: Denies eye, ear, throat, or mouth pain or symptoms. Denies nasal or sinus congestion. CARDIOVASCULAR: Denies chest pain. RESPIRATORY: Denies cough, cold, or chest congestion. Denies shortness of breath, difficulty breathing, or wheezing. GASTROINTESTINAL: Positive abdominal pain. Denies nausea, vomiting, or diarrhea. Denies constipation. Last BM: GENITOURINARY: Denies difficulty urinating, painful urination, burning, frequency, or blood in urine. FEMALE GENITOURINARY: Denies vaginal bleeding, abnormal or irregular periods. MUSCULOSKELETAL: Denies neck or back pain or joint pain or swelling. SKIN: Denies rash or skin lesions. HEMATOLOGIC : Denies easy bruising or bleeding. LYMPHATIC: Denies swollen, enlarged glands. NEUROLOGICAL: Denies altered mental status or loss of consciousness. Denies headache. Denies weakness or paralysis or loss of use of either side. Denies problems with gait or speech. Denies sensory or motor loss. PSYCHIATRIC: Denies anxiety or stress or depression. ALL OTHER SYSTEMS REVIEWED AND NEGATIVE. -: Yes All other systems reviewed and negative Physical Exam - Vital signs Vitals: Temp Pulse Resp BP Pulse Ox 97.7 F 53 L 16 102/55 L 98 11/03/18 22:14 11/03/18 22:14 11/03/18 22:14 11/03/18 22:14 11/03/18 22:14 - Notes Notes: PHYSICAL EXAMINATION: GENERAL: Well-appearing, well-nourished and in no acute distress. HEAD: Atraumatic, normocephalic. EYES: Pupils equal round and reactive to light, extraocular movements intact, sc ghada anicteric, conjunctiva are normal. ENT: nares patent, oropharynx clear without exudates. Moist mucous membranes. NECK: Normal range of motion, supple without lymphadenopathy LUNGS: Breath sounds clear to auscultation bilaterally and equal. No wheezes rales or rhonchi. HEART: Regular rate and rhythm without murmurs ABDOMEN: Soft, nontender, normoactive bowel sounds. No guarding, no rebound. No masses appreciated. Rectal/genital exam deferred. EXTREMITIES: Normal range of motion, no pitting or edema. No cyanosis. NEUROLOGICAL: No focal neurological deficits. Moves all extremities spontaneously and on command. PSYCH: Normal mood, normal affect. SKIN: Warm, Dry, normal turgor, no rashes or lesions noted. Course - Re-evaluation Re-evalutation: 11/04/18 04:03 Labs and chest x-ray are negative. Patient will be discharged home with return precautions and follow-up. Patient reports understanding and agreeing with the plan. - Vital Signs Vital signs: Temp Pulse Resp BP Pulse Ox 97.7 F 53 L 16 102/55 L 98 11/03/18 22:14 11/03/18 22:14 11/03/18 22:14 11/03/18 22:14 11/03/18 22:14 - Laboratory Result Diagrams: 11/03/18 23:38 11/03/18 23:38 Laboratory results interpreted by me: 11/03/18 11/03/18 23:02 23:38 BUN 25 H AST 41 H ALT 55 H Ur Leukocyte Esterase TRACE H Urine Ascorbic Acid 40 H - Diagnostic Test Radiology reviewed: Image reviewed, Reports reviewed Discharge - Discharge Clinical Impression: Abdominal pain Qualifiers: Abdominal location: epigastric Qualified Code(s): R10.13 - Epigastric pain Condition: Good Instructions: Abdominal Pain ([facility]) Additional Instructions: You have been evaluated in the Emergency Department for abdominal pain. Please follow-up with your primary physician as instructed in 1 week to be reevaluated. Return to the Emergency Department if you experience chest pain, shortness of breath, general weakness, or any other concerning symptoms. Referrals: CARLENE BAKER MD [Primary Care Provider] - Follow up as needed Print Language: Divehi
[2018-11-03 23:25] LABS: APPEARANCE,URINE SLIGHTLY-CLOUDY; BILIRUBIN,URINE NEGATIVE (NEGATIVE); COLOR,URINE YELLOW; GLUCOSE, URINE NEGATIVE (NEGATIVE); KETONES,URINE NEGATIVE (NEGATIVE); LEUKOCYTE ESTERASE,URINE TRACE (NEGATIVE); NITRITE,URINE NEGATIVE (NEGATIVE); PROTEIN,URINE NEGATIVE (NEGATIVE); URINE SPECIFIC GRAVITY 1.015; UROBILINOGEN,URINE NEGATIVE mg/dL (<2.0)
[2018-11-03 23:49] LABS: ABSOLUTE EOSINOPHILS # (AUTO) 0.1 10^3/uL (0.0-0.6); ABSOLUTE MONOCYTES (AUTO) 0.4 10^3/uL (0.1-1.4); ABSOLUTE NEUT (AUTO) 1.9 10^3/uL (1.7-8.2); BASOPHILS % (AUTO) 0.9 % (0-2); EOSINOPHILS % (AUTO) 2.6 % (0-6); HEMATOCRIT 39.8 % (36.0-47.0); HEMOGLOBIN 13.7 g/dL (12.0-15.5); LYMPHOCYTES % (AUTO) 44.4 % (13-45); MEAN CORPUSCULAR HEMOGLOBIN 32.4 pg (27.0-33.4); MEAN CORPUSCULAR HGB CONC 34.5 g/dL (32.0-36.0); MEAN CORPUSCULAR VOLUME 94 fl (80-97); MONOCYTES % (AUTO) 9.7 % (3-13); PLATELET COUNT 243 10^3/uL (150-450); RED BLOOD COUNT 4.24 10^6/uL (3.72-5.28); RED CELL DISTRIBUTION WIDTH 13.2 % (11.5-14.0); SEGMENTED NEUTROPHILS % (AUTO) 42.4 % (42-78); TOTAL CELLS COUNTED % (AUTO) 100 %; WHITE BLOOD COUNT 4.4 10^3/uL (4.0-10.5)
[2018-11-03 23:59] LABS: ALANINE AMINOTRANSFERASE 55 U/L (9-52); ALBUMIN 3.8 g/dL (3.5-5.0); ALKALINE PHOSPHATASE 71 U/L (38-126); ANION GAP 6 (5-19); ASPARTATE AMINO TRANSFERASE 41 U/L (14-36); BILIRUBIN,TOTAL 0.4 mg/dL (0.2-1.3); BLOOD UREA NITROGEN 25 mg/dL (7-20); CALCIUM 9.3 mg/dL (8.4-10.2); CARBON DIOXIDE 30 mmol/L (22-30); CHLORIDE 102 mmol/L (98-107); GLUCOSE 95 mg/dL (75-110); LIPASE 214.3 U/L (23-300); POTASSIUM 4.1 mmol/L (3.6-5.0); SODIUM 138.1 mmol/L (137-145); TOTAL PROTEIN 6.3 g/dL (6.3-8.2)
--- NOTE | 2018-11-04 00:52 | RADIOLOGY REPORT (SQ) ---
EXAM DESCRIPTION: XR CHEST 1 VIEW COMPLETED DATE/TME: 11/03/2018 23:59 CLINICAL HISTORY: 68 years, Female, Epigastric fulness COMPARISON: 10/18/2018 chest NUMBER OF VIEWS: 1 TECHNIQUE: Portable chest LIMITATIONS: None. FINDINGS: Heart size is normal. Osteopenia. Lungs are clear. No pneumothorax IMPRESSION: No acute cardiopulmonary process copyright 2010 [employer]- All Rights Reserved
[2018-11-04 04:19] VITALS: BP 96/52
== END 2018-11-04 04:19 | disposition home or self-care (01) ==
LOC: ER 20:29
DX: R10.13 Epigastric pain (principal); I25.10 Atherosclerotic heart disease of native coronary artery without angina pectoris; J44.9 Chronic obstructive pulmonary disease, unspecified; Z85.850 Personal history of malignant neoplasm of thyroid; Z85.3 Personal history of malignant neoplasm of breast; Z87.442 Personal history of urinary calculi; Z90.49 Acquired absence of other specified parts of digestive tract; Z90.710 Acquired absence of both cervix and uterus; Z88.8 Allergy status to other drugs, medicaments and biological substances; Z88.2 Allergy status to sulfonamides; Z91.040 Latex allergy status
CPT/HCPCS: 36415; 71045; 80053; 81001; 83690; 85025; 99284

== ENCOUNTER → 2018-11-10 | Outpatient (CLI) | payer BC ==
--- NOTE | 2018-11-10 10:41 | RADIOLOGY REPORT (SQ) ---
EXAM DESCRIPTION: CT ABD/PELVIS WITH IV ORAL COMPLETED DATE/TIME: 11/10/2018 9:43 am REASON FOR STUDY: EPIGASTRIC PAIN, BLOATING R10.13 EPIGASTRIC PAIN R14.0 ABDOMINAL DISTENSION (GAS EOUS) COMPARISON: CT abdomen pelvis 08/25/2014, 04/14/2014, 03/21/2014 Abdominal films 08/24/2018, 05/20/2018 TECHNIQUE: CT scan of the abdomen and pelvis performed using helical scanning technique with dynamic intravenous contrast injection. Patient drank oral contrast. Images reviewed with lung, soft tissue , and bone windows. Reconstructed coronal and sagittal MPR images reviewed. Delayed images for evalua tion of the urinary system also acquired. All images stored on PACS. All CT scanners at this facility use dose modulation, iterative reconstruction, and/or weight based d osing when appropriate to reduce radiation dose to as low as reasonably achievable (ALARA). [facility]: Dose Right [facility]: CareDose [facility]: Dose Right [facility]: Teradose 4D [facility]: [facility] CONTRAST TYPE AND DOSE: contrast/concentration: Isovue 350.00 mg/ml; Total Contrast Delivered: 58.0 ml; Total Saline Delivered: 65.0 ml RENAL FUNCTION: Creatinine 0.84 RADIATION DOSE: CT Rad equipment meets quality standard of care and radiation dose reduction techniq ues were employed. CTDIvol: 2.6 - 3.0 mGy. DLP: 241 mGy-cm.. LIMITATIONS: None. FINDINGS: LOWER CHEST: No significant findings. No nodules or infiltrates. LIVER: Normal size. No masses. No dilated ducts. Dov's lobe is present SPLEEN: Normal size. No focal lesions. PANCREAS: No masses. No significant calcifications. No adjacent inflammation or peripancreatic fluid collections. Pancreatic duct not dilated. GALLBLADDER: Surgically absent ADRENAL GLANDS: No significant masses or asymmetry. RIGHT KIDNEY AND URETER: No solid masses. No significant calcifications. No hydronephrosis or hyd roureter. LEFT KIDNEY AND URETER: No solid masses. No significant calcifications. No hydronephrosis or hydr oureter. AORTA AND VESSELS: No aneurysm. No dissection. Renal arteries, SMA, celiac without stenosis. RETROPERITONEUM: No retroperitoneal adenopathy, hemorrhage or masses. BOWEL AND PERITONEAL CAVITY: Patient drank oral contrast which is mostly in small bowel and colon in a nonobstructive pattern. Stomach decompressed. No free intraperitoneal air or fluid or CT signs of bowel obstruction. APPENDIX: Normal. PELVIS: No mass. No free fluid. Normal bladder. Normal size female pelvic organs ABDOMINAL WALL: No masses. No hernias. BONES: Benign hemangioma in the anterior half of the L4 vertebral body OTHER: No other significant finding. IMPRESSION: NO SIGNIFICANT OR ACUTE FINDING IN THE ABDOMEN OR PELVIS ON CT SCAN WITH IV CONTRAST. TECHNICAL DOCUMENTATION: JOB ID: [id number] Quality ID # [id number]: Final reports with documentation of one or more dose reduction techniques (e.g., Au tomated exposure control, adjustment of the mA and/or kV according to patient size, use of iterative reconstruction technique) 2010 [employer]- All Rights Reserved Reading location - IP/workstation name: [email or web address]
== END ==
LOC: RAD 08:26
PROVIDERS: ATTEND Internal Medicine Gastroenterology
DX: R10.13 Epigastric pain (principal); R14.0 Abdominal distension (gaseous)
CPT/HCPCS: 74177

== ENCOUNTER 2019-03-12 07:56 | Emergency (ER) | payer BC, OTHER ==
[2019-03-12] MEDS ORDERED: ONDANSETRON HCL INJ/PF 4 MG/2 ML SDV IV ONE (09:24)
[2019-03-12] MEDS ORDERED: FENTANYL CITRATE INJ/PF 100 MCG/2 ML AMPUL IV ONE (09:24)
--- NOTE | 2019-03-12 09:25 | ER Document Report ---
ED Extremity Problem, Lower - General Chief Complaint: Leg Pain Stated Complaint: FOOT INJURY Time Seen by Provider: 03/12/19 08:54 Primary Care Provider: CARLENE BAKER MD [Primary Care Provider] - Follow up as needed Mode of Arrival: Ambulatory Information source: Patient, [facility] Records Notes: This 68-year-old female patient comes emergency room complaining of severe pain to her left foot ankle and knee for the past 8 days. She reports the pain started off in the left ankle with some swelling, and then the left knee began swelling with some erythema and with severe pain. At this time the redness and swelling to the knee has improved considerably but the pain has not improved. She states she is unable to extend the knee if she is sitting on edge the bed. At this time she is sitting up on the stretcher with both legs extended. She has been wearing a walking boot brace on the left ankle which she had leftover from an Achilles injury 4 years ago. She received Levaquin in August 2014 and it is believed that that contributed to a partial tear to the left Achilles tendon. She was recently on Keflex for urinary tract infection and thinks the Keflex is causing her discomfort. She had been on the Keflex for 6 days and stopped it last 03/05/2019 which is the same day that the symptoms in her left lower extremity started. She does not have a history of gout. She states she has been having to crawl around and is using a cane and the walking boot at this time. There is been no fever, no nausea. TRAVEL OUTSIDE OF THE [place] IN LAST 30 DAYS: No - Related Data Allergies/Adverse Reactions: Sulfa (Sulfonamide Antibiotics) Allergy (Severe, Verified 08/24/18 18:36) heart beats very fast latex Allergy (Verified 08/24/18 18:36) NSAIDS (Non-Steroidal Anti-Inflamma [Nsaids] Allergy (Verified 08/24/18 18:36) ciprofloxacin [From Cipro] Adverse Reaction (Verified 08/24/18 18:36) levofloxacin [From Levaquin] Adverse Reaction (Verified 08/24/18 18:36) nitrofurantoin Adverse Reaction (Verified 08/24/18 18:36) Past Medical History - General Information source: Patient, [facility] Records - Social History Smoking Status: Former Smoker Cigarette use (# per day): No Chew tobacco use (# tins/day): No Smoking Education Provided: No Frequency of alcohol use: Rare Drug Abuse: None Lives with: Alone Family History: Reviewed & Not Pertinent Patient has suicidal ideation: No Patient has homicidal ideation: No - Medical History Medical History: Other - Patient states 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 and Musculoskeletal Medical History: Reports Hx Arthritis, Reports Hx Multiple Sclerosis - per pt although the lp'S were negative Psychiatric Medical History: Reports: Hx Anxiety Past Surgical History: Reports: Hx Appendectomy, Hx Bowel Surgery, Hx Section, Hx Cholecystectomy, Hx Hysterectomy, Hx Mastectomy, Hx Orthopedic Surgery - left rotator cuff, Hx Thyroid Surgery, Hx Urinary Tract Surgery - BLADDER POLYPS REMOVED - Immunizations Immunizations up to date: Yes Hx Diphtheria, Pertussis, Tetanus Vaccination: Yes Hx Pneumococcal Vaccination: 10/02/10 Review of Systems - Review of Systems Constitutional: No symptoms reported EENT: No symptoms reported Cardiovascular: No symptoms reported Respiratory: No symptoms reported Gastrointestinal: Other - Patient reports she has gastroparesis Genitourinary: No symptoms reported Female Genitourinary: Post menopausal Musculoskeletal: See HPI Skin: No symptoms reported Hematologic/Lymphatic: No symptoms reported Neurological/Psychological: No symptoms reported Physical Exam - Vital signs Vitals: Temp Pulse Resp BP Pulse Ox 98.4 F 74 16 101/47 L 96 03/12/19 08:04 03/12/19 08:04 03/12/19 08:04 03/12/19 08:04 03/12/19 08:04 Interpretation: Normal - General General appearance: Alert, Anxious In distress: Moderate - Patient is in a lot of pain from her left knee. - HEENT Head: Normocephalic, Atraumatic Eyes: Normal Pupils: PERRL Neck: Normal, Supple - Respiratory Respiratory status: No respiratory distress Breath sounds: Normal - Cardiovascular Rhythm: Regular Heart sounds: Normal auscultation Murmur: No - Abdominal Inspection: Normal Bowel sounds: Normal - Back Back: Normal - Extremities General upper extremity: Normal inspection Thigh: Other - The left anterior thigh muscles and suprapatellar tendon are quite tender to palpate. Knee: Other - The left knee is exquisitely tender to palpate the joint space. There seems to be possible slight effusion. Calf: Tender - Left calf is a little tender. It is not swollen. Ankle: Other - The left ankle is tender to palpate and manipulate, there may be some minimal swelling. - Neurological Neuro grossly intact: Yes - Psychological Associated symptoms: Anxious - Skin Skin Temperature: Warm Skin Moisture: Dry Skin Color: Normal Course - Re-evaluation Re-evalutation: 03/12/19 12:01 The WBC is low normal without shift. The Chem-12 is unremarkable other than a BUN of 38 with a normal creatinine. The uric acid is quite low at 2.2, the ESR is 49 and the CRP is 56 She has elevated inflammatory markers, without joint effusion, laboratory evidence of infection or evidence to suggest gout. As these symptoms started while she was taking Keflex, and the erythema and swelling actually improved off the Keflex, it is unlikely this is a partially treated infection. 03/12/19 12:43 The knee immobilizer was placed the PCT on the left leg over the walking boot. It fits well and provides comfort and stability. The patient actually comments that the immobilizer "feels wonderful". 03/12/19 12:44 - Vital Signs Vital signs: Temp Pulse Resp BP Pulse Ox 98.4 F 74 16 101/47 L 97 03/12/19 08:04 03/12/19 08:04 03/12/19 08:04 03/12/19 08:04 03/12/19 12:00 - Laboratory Result Diagrams: 03/12/19 09:31 03/12/19 09:31 Laboratory results interpreted by me: 03/12/19 03/12/19 03/12/19 09:31 09:31 09:39 ESR 49 H BUN 38 H Uric Acid 2.2 L C-Reactive Protein 56.0 H Urine Ascorbic Acid 40 H Discharge - Discharge Clinical Impression: Knee pain, left Qualifiers: Chronicity: acute Qualified Code(s): M25.562 - Pain in left knee Ankle pain, left Qualifiers: Chronicity: acute Qualified Code(s): M25.572 - Pain in left ankle and joints of left foot Condition: Stable Disposition: HOME, SELF-CARE Additional Instructions: Your evaluation shows an inflammatory process involving the left knee and ankle. It is unclear what is causing this problem. Use your ankle brace and the knee immobilizer to protect the ankle and knee joints. Limit walking is much as possible. Take the pain medication as prescribed if needed. Follow-up with your primary care provider or your orthopedic doctor on Thursday. RETURN TO THE EMERGENCY ROOM IF ANY NEW OR WORSENING SYMPTOMS. Prescriptions: Oxycodone HCl/Acetaminophen [Percocet 5-325 mg Tablet] 1 tab PO ASDIR PRN #12 tablet PRN Reason: Referrals: CARLENE BAKER MD [Primary Care Provider] - Follow up as needed
[2019-03-12 10:19] LABS: ABSOLUTE LYMPHOCYTES (AUTO) 1.2 10^3/uL (0.5-4.7); ABSOLUTE MONOCYTES (AUTO) 0.7 10^3/uL (0.1-1.4); ABSOLUTE NEUT (AUTO) 4.1 10^3/uL (1.7-8.2); BASOPHILS % (AUTO) 0.4 % (0-2); EOSINOPHILS % (AUTO) 0.7 % (0-6); HEMATOCRIT 39.3 % (36.0-47.0); HEMOGLOBIN 13.7 g/dL (12.0-15.5); LYMPHOCYTES % (AUTO) 20.4 % (13-45); MEAN CORPUSCULAR HEMOGLOBIN 32.6 pg (27.0-33.4); MEAN CORPUSCULAR HGB CONC 34.8 g/dL (32.0-36.0); MEAN CORPUSCULAR VOLUME 94 fl (80-97); PLATELET COUNT 241 10^3/uL (150-450); RED BLOOD COUNT 4.19 10^6/uL (3.72-5.28); RED CELL DISTRIBUTION WIDTH 13.2 % (11.5-14.0); SEGMENTED NEUTROPHILS % (AUTO) 67.5 % (42-78); TOTAL CELLS COUNTED % (AUTO) 100 %; WHITE BLOOD COUNT 6.1 10^3/uL (4.0-10.5)
[2019-03-12 10:27] LABS: APPEARANCE,URINE CLEAR; BILIRUBIN,URINE NEGATIVE (NEGATIVE); COLOR,URINE YELLOW; GLUCOSE, URINE NEGATIVE (NEGATIVE); KETONES,URINE NEGATIVE (NEGATIVE); LEUKOCYTE ESTERASE,URINE NEGATIVE (NEGATIVE); NITRITE,URINE NEGATIVE (NEGATIVE); PROTEIN,URINE NEGATIVE (NEGATIVE); URINE SPECIFIC GRAVITY 1.012; UROBILINOGEN,URINE NEGATIVE mg/dL (<2.0)
[2019-03-12 10:46] LABS: ALANINE AMINOTRANSFERASE 24 U/L (9-52); ALKALINE PHOSPHATASE 49 U/L (38-126); ANION GAP 10 (5-19); ASPARTATE AMINO TRANSFERASE 27 U/L (14-36); BILIRUBIN,DIRECT 0.2 mg/dL (0.0-0.4); BILIRUBIN,TOTAL 0.5 mg/dL (0.2-1.3); BLOOD UREA NITROGEN 38 mg/dL (7-20); CALCIUM 9.7 mg/dL (8.4-10.2); CARBON DIOXIDE 30 mmol/L (22-30); CHLORIDE 101 mmol/L (98-107); CREATINE KINASE 35 U/L (30-135); GLUCOSE 86 mg/dL (75-110); POTASSIUM 4.8 mmol/L (3.6-5.0); SODIUM 141.1 mmol/L (137-145); TOTAL PROTEIN 6.7 g/dL (6.3-8.2); URIC ACID 2.2 mg/dL (2.5-7.5)
[2019-03-12 11:08] LABS: ERYTHROCYTE SEDIMENTATION RATE 49 mm/hr (0-30)
[2019-03-12 12:53] VITALS: BP 112/45
== END 2019-03-12 12:54 | disposition home or self-care (01) ==
LOC: ER 07:56
DX: M25.572 Pain in left ankle and joints of left foot (principal); M25.562 Pain in left knee; E78.00 Pure hypercholesterolemia, unspecified; J44.9 Chronic obstructive pulmonary disease, unspecified; E03.9 Hypothyroidism, unspecified; Z88.2 Allergy status to sulfonamides; Z91.040 Latex allergy status; Z88.3 Allergy status to other anti-infective agents; Z87.442 Personal history of urinary calculi; Z85.3 Personal history of malignant neoplasm of breast; Z90.49 Acquired absence of other specified parts of digestive tract; Z90.710 Acquired absence of both cervix and uterus
CPT/HCPCS: 99283; 96374; 96375; 36415; 82550; 83735; 84550; 85025; 85652; 86140; 80053; 81001; L1830; J3010; J2405

== ENCOUNTER 2019-06-12 12:18 | Emergency (ER) | payer BC ==
--- NOTE | 2019-06-12 13:18 | ER Document Report ---
ED Medical Screen (RME) - General Chief Complaint: Urinary Problem Stated Complaint: POSSIBLE UTI Time Seen by Provider: 06/12/19 13:06 Primary Care Provider: CARLENE BAKER MD [Primary Care Provider] - Follow up as needed Notes: Patient is a 68-year-old female presents to emergency department with a chief complaint of urinary frequency. Patient states her symptoms have been present for 2 days. Patient reports odor to the urine as well as blood in the urine. Patient reports she does get frequent UTIs. Patient states she prefers amoxicillin 500 mg 4 times a day versus Keflex that she does have a history of g astroparesis and seems to tolerate the amoxicillin. Patient denies vaginal discharge. Patient reports she has been taking Tylenol as needed at home and BC powders. Patient denies fever, nausea, vomiting or diarrhea. Patient states she does have back pain but this is chronic and no different from her normal. TRAVEL OUTSIDE OF THE [place] IN LAST 30 DAYS: No - Related Data Allergies/Adverse Reactions: Sulfa (Sulfonamide Antibiotics) Allergy (Severe, Verified 06/12/19 12:21) heart beats very fast latex Allergy (Verified 06/12/19 12:21) NSAIDS (Non-Steroidal Anti-Inflamma [Nsaids] Allergy (Verified 06/12/19 12:21) ciprofloxacin [From Cipro] Adverse Reaction (Verified 06/12/19 12:21) levofloxacin [From Levaquin] Adverse Reaction (Verified 06/12/19 12:21) nitrofurantoin Adverse Reaction (Verified 06/12/19 12:21) Past Medical History - Social History Family history: None - Past Medical History Cardiac Medical History: Reports: Hx Coronary Artery Disease - cholesterol, Hx Hypercholesterolemia Pulmonary Medical History: Reports: Hx COPD Endocrine Medical History: Reports: Hx Hypothyroidism - After having her thyroid removed for cancer in October, Renal/ Medical History: Reports: Hx Kidney Stones. Denies: Hx Peritoneal Dialysis Malignancy Medical History: Reports: Hx Breast Cancer GI Medical History: Reports: Hx Gastroesophageal Reflux Disease, Hx Hiatal Hernia Musculoskeltal Medical History: Reports Hx Arthritis, Reports Hx Multiple Sclerosis - per pt although the lp'S were negative Psychiatric Medical History: Reports: Hx Anxiety Past Surgical History: Reports: Hx Appendectomy, Hx Bowel Surgery, Hx Section, Hx Cholecystectomy, Hx Hysterectomy, Hx Mastectomy, Hx Orthopedic Surgery - left rotator cuff, Hx Thyroid Surgery, Hx Urinary Tract Surgery - BLADDER POLYPS REMOVED - Immunizations Immunizations up to date: Yes Hx Diphtheria, Pertussis, Tetanus Vaccination: Yes Physical Exam - Vital signs Vitals: Temp Pulse Resp BP Pulse Ox 98.2 F 79 15 112/59 L 96 06/12/19 12:06/12/19 12:06/12/19 12:06/12/19 12:06/12/19 12:29 - Abdominal Inspection: Normal Distension: No distension Bowel sounds: Normal Tenderness: Nontender Organomegaly: No organomegaly - Back Back: Normal Notes: No CVA tenderness Course - Re-evaluation Re-evalutation: 06/12/19 13:17 I have greeted and performed a rapid initial assessment of this patient. A comprehensive ED assessment and evaluation of the patient, analysis of test results and completion of the medical decision making process will be conducted by additional ED providers. - Vital Signs Vital signs: Temp Pulse Resp BP Pulse Ox 98.2 F 79 15 112/59 L 96 06/12/19 12:06/12/19 12:06/12/19 12:06/12/19 12:06/12/19 12:29 Doctor's Discharge - Discharge Referrals: CARLENE BAKER MD [Primary Care Provider] - Follow up as needed
[2019-06-12 14:59] LABS: APPEARANCE,URINE SLIGHTLY-CLOUDY; BILIRUBIN,URINE NEGATIVE (NEGATIVE); COLOR,URINE YELLOW; GLUCOSE, URINE NEGATIVE (NEGATIVE); KETONES,URINE NEGATIVE (NEGATIVE); LEUKOCYTE ESTERASE,URINE MODERATE (NEGATIVE); NITRITE,URINE POSITIVE (NEGATIVE); PROTEIN,URINE NEGATIVE (NEGATIVE); URINE SPECIFIC GRAVITY 1.012; UROBILINOGEN,URINE NEGATIVE mg/dL (<2.0)
[2019-06-12] MEDS ORDERED: AMOXICILLIN TRIHYDRATE 500 MG CAPSULE PO ONE (16:03)
--- NOTE | 2019-06-12 16:21 | ER Document Report ---
ED General - General Chief Complaint: Urinary Problem Stated Complaint: POSSIBLE UTI Time Seen by Provider: 06/12/19 13:06 Primary Care Provider: CARLENE BAKER MD [Primary Care Provider] - Follow up as needed Notes: 68-year-old female presents emergency department complaining that she thinks she has a urinary tract infection. Patient has a history of urinary tract infections and states that for the past 3 days she has been having urinary frequency, urgency and burning with urination, started having some pink and red blood in her urine today. Denies any fevers, states pain radiates to her right flank. States that she has a history of a kidney stone in the past but this does not feel the same as her kidney stone. Denies fevers or vomiting. Patient states that in the past she has been successfully treated with amoxicillin 500 mg 4 times a day and finds it works better than Keflex. Usually it is treated with E. coli. Has not followed up with urologist as an outpatient recently. TRAVEL OUTSIDE OF THE [place] IN LAST 30 DAYS: No - Related Data Allergies/Adverse Reactions: Sulfa (Sulfonamide Antibiotics) Allergy (Severe, Verified 06/12/19 12:21) heart beats very fast latex Allergy (Verified 06/12/19 12:21) NSAIDS (Non-Steroidal Anti-Inflamma [Nsaids] Allergy (Verified 06/12/19 12:21) ciprofloxacin [From Cipro] Adverse Reaction (Verified 06/12/19 12:21) levofloxacin [From Levaquin] Adverse Reaction (Verified 06/12/19 12:21) nitrofurantoin Adverse Reaction (Verified 06/12/19 12:21) Past Medical History - General Information source: Patient - Social History Smoking Status: Never Smoker Chew tobacco use (# tins/day): No Frequency of alcohol use: Rare Drug Abuse: None Family History: Reviewed & Not Pertinent Patient has suicidal ideation: No Patient has homicidal ideation: No - Past Medical History Cardiac Medical History: Reports: Hx Coronary Artery Disease - cholesterol, Hx Hypercholesterolemia Pulmonary Medical History: Reports: Hx COPD Endocrine Medical History: Reports: Hx Hypothyroidism - After having her thyroid removed for cancer in October, Renal/ Medical History: Reports: Hx Kidney Stones. Denies: Hx Peritoneal Dialysis Malignancy Medical History: Reports: Hx Breast Cancer GI Medical History: Reports: Hx Gastroesophageal Reflux Disease, Hx Hiatal Hernia Musculoskeletal Medical History: Reports Hx Arthritis, Reports Hx Multiple Sclerosis - per pt although the lp'S were negative Psychiatric Medical History: Reports: Hx Anxiety Past Surgical History: Reports: Hx Appendectomy, Hx Bowel Surgery, Hx Section, Hx Cholecystectomy, Hx Hysterectomy, Hx Mastectomy, Hx Orthopedic Surgery - left rotator cuff, Hx Thyroid Surgery, Hx Urinary Tract Surgery - BLADDER POLYPS REMOVED - Immunizations Immunizations up to date: Yes Hx Diphtheria, Pertussis, Tetanus Vaccination: Yes Hx Pneumococcal Vaccination: 10/02/10 Review of Systems - Review of Systems Constitutional: No symptoms reported Genitourinary: See HPI -: Yes All other systems reviewed and negative Physical Exam - Vital signs Vitals: Temp Pulse Resp BP Pulse Ox 98.2 F 79 15 112/59 L 96 06/12/19 12:29 06/12/19 12:29 06/12/19 12:29 06/12/19 12:29 06/12/19 12:29 Interpretation: Normal - Notes Notes: GENERAL: Alert, interacts well. No acute distress. HEAD: Normocephalic, atraumatic EYES: Pupils equal, round and reactive to light, extraocular movements intact. ENT: Oral mucosa moist, tongue midline. NECK: Full range of motion, supple, trachea midline. LUNGS: Clear to auscultation bilaterally, no wheezes, rales or rhonchi, no respiratory distress. HEART: Regular rate and rhythm, no murmurs, gallops, rubs. ABDOMEN: Soft, nontender, specifically rechecked the right lower quadrant without any tenderness to palpation or guarding, nondistended, bowel sounds present in all 4 quadrants. No CVA tenderness to percussion. No rashes noted. EXTREMITIES: Moves all 4 extremities spontaneously, no edema, radial and dorsalis pedis pulses 2/4 bilaterally. No cyanosis. NEUROLOGICAL: Alert and oriented x3, normal speech. PSYCH: Normal mood, normal affect. SKIN: Warm, Dry, normal turgor, no rashes or lesions noted. Course - Re-evaluation Re-evalutation: 06/12/19 16:21 Bedside ultrasound performed by myself focused on the right kidney does not reveal any hydronephrosis. No suspicion for obstructing stone at this time. Urinalysis shows blood, nitrites and leukocyte esterase. Sent for culture. Will be treated with amoxicillin. Given some pain medication and discharged home. - Vital Signs Vital signs: Temp Pulse Resp BP Pulse Ox 98.2 F 79 15 112/59 L 96 06/12/19 12:29 06/12/19 12:29 06/12/19 12:29 06/12/19 12:29 06/12/19 12:29 - Laboratory Laboratory results interpreted by me: 06/12/19 13:22 Urine Blood LARGE H Urine Nitrite POSITIVE H Ur Leukocyte Esterase MODERATE H Urine Ascorbic Acid 40 H Discharge - Discharge Clinical Impression: Urinary tract infection Qualifiers: Urinary tract infection type: acute cystitis Hematuria presence: with hematuria Qualified Code(s): N30.01 - Acute cystitis with hematuria Condition: Stable Disposition: HOME, SELF-CARE Additional Instructions: Urinary Tract Infection Your evaluation indicates that you have a urinary tract infection. This is due to germs growing in the bladder. This is a common problem. This infection usually responds quickly to antibiotics. Your antibiotic should be taken exactly as prescribed. Drink plenty of fluids -- three to four quarts a day. Occasionally, a bladder anesthetic will be prescribed to help stop the feeling of urgency until the antibiotic has a chance to clear the infection. This may cause your urine to be dark orange. Certain urine infections require a culture. If the doctor obtained a culture, the results will be back in two days. You should call to see if a change in treatment is needed. A repeat urinalysis after you finish treatment is often recommended. The physician will let you know if further testing is required. Call the doctor if you develop fever, chills, flank pain, inability to urin ate, or blood in the urine. If your pain does not improve, if you develop vomiting, if you develop fevers or if you have any new or concerning symptoms please return to the emergency department. Prescriptions: Hydrocodone/Acetaminophen [[place] 5-325 mg Tablet] 1 tab PO Q4HP PRN #10 tablet PRN Reason: Amoxicillin Trihydrate [Amoxil 500 mg Capsule] 500 mg PO QID #28 capsule Phenazopyridine HCl [Pyridium 200 mg Tablet] 200 mg PO TID #15 tablet Referrals: CARLENE BAKER MD [Primary Care Provider] - Follow up in 3-5 days
[2019-06-12 16:58] VITALS: BP 108/61
== END 2019-06-12 16:58 | disposition home or self-care (01) ==
LOC: ER 12:18
DX: N30.01 Acute cystitis with hematuria (principal); I25.10 Atherosclerotic heart disease of native coronary artery without angina pectoris; J44.9 Chronic obstructive pulmonary disease, unspecified; Z87.442 Personal history of urinary calculi; Z88.2 Allergy status to sulfonamides; Z91.040 Latex allergy status; Z88.8 Allergy status to other drugs, medicaments and biological substances; Z85.3 Personal history of malignant neoplasm of breast; Z85.850 Personal history of malignant neoplasm of thyroid
CPT/HCPCS: 81001; 87086; 87088; 87186; 99283

== ENCOUNTER → 2019-08-09 | Outpatient (CLI) | payer BC ==
--- NOTE | 2019-08-09 12:11 | RADIOLOGY REPORT (SQ) ---
EXAM DESCRIPTION: CHEST PA/LATERAL COMPLETED DATE/TIME: 08/09/2019 11:04 am REASON FOR STUDY: COUGH COMPARISON: 11/04/2018 EXAM PARAMETERS: NUMBER OF VIEWS: two views TECHNIQUE: Digital Frontal and Lateral radiographic views of the chest acquired. RADIATION DOSE: NA LIMITATIONS: none FINDINGS: LUNGS AND PLEURA: Hyperexpansion of the lungs. No infiltrate, effusion, or mass. MEDIASTINUM AND HILAR STRUCTURES: No masses or contour abnormalities. HEART AND VASCULAR STRUCTURES: Heart normal size. No evidence for failure. BONES: No acute findings. HARDWARE: None in the chest. OTHER: No other significant finding. IMPRESSION: Chronic lung changes with no acute cardiopulmonary findings. TECHNICAL DOCUMENTATION: JOB ID: [id number] [employer]- All Rights Reserved Reading location - IP/workstation name: [email or web address]
== END ==
LOC: OD 10:42
PROVIDERS: ATTEND Physician Assistant
DX: R05 Cough (principal)
CPT/HCPCS: 71046

== ENCOUNTER → 2019-11-15 | Outpatient (CLI) | payer BC, OTHER ==
--- NOTE | 2019-11-15 09:14 | WOMENS IMAGING REPORT ---
EXAM DESCRIPTION: 3D SCREENING MAMMO BILAT COMPLETED DATE/TIME: 11/15/2019 8:22 am REASON FOR STUDY: Z12.31 ENCOUNTER FOR SCREENING MAMMOGRAM FOR MALIGNANT NEOPLASM OF BREAST Z12.31 ENCNTR SCREEN MAMMOGRAM FOR MALIGNANT NEOPLASM OF ERROL Z78.0 ASYMPTOMATIC MENOPAUSAL STATE COMPARISON: 2013 -2016 EXAM PARAMETERS: Views: Standard craniocaudal and mediolateral oblique views of each breast recorded using digital acquisition and breast tomosynthesis. Read with the assistance of CAD. .[facility] - R2 [employer] Version 9.2 LIMITATIONS: None. FINDINGS: No suspicious masses, suspicious calcifications or architectural distortion. No areas of c oncern. IMPRESSION: NEGATIVE MAMMOGRAM. BIRADS 1. BREAST DENSITY: d. The breasts are extremely dense, which lowers the sensitivity of mammography. BIRAD: ASSESSMENT: 1 NEGATIVE RECOMMENDATION: ROUTINE SCREENING COMMENT: The patient has been notified of the results by letter per MQSA requirements. Additional no tification policies are in place for contacting patient with suspicious or incomplete findings. Quality ID #[id number]: The [employer] recommends an annual screening mammogram for women aged 40 years or over. This facility utilizes a reminder system to ensure that all patients receive reminder letters, and/or direct phone calls for appointments. This includes reminders for routine scr eening mammograms, diagnostic mammograms, or other Breast Imaging Interventions when appropriate. Th is patient will be placed in the appropriate reminder system. TECHNICAL DOCUMENTATION: FINDING NUMBER: (1) ASSESSMENT: (1) JOB ID: [id number] [employer] All Rights Reserved Reading location - IP/workstation name: [email or web address]
--- NOTE | 2019-11-15 11:15 | WOMENS IMAGING REPORT ---
EXAM DESCRIPTION: BONE DENSITY HIP/SPINE COMPLETED DATE/TIME: 11/15/2019 8:22 am REASON FOR STUDY: Z78.0 ASYMPTOMATIC MENOPAUSAL STATE Z12.31 ENCNTR SCREEN MAMMOGRAM FOR MALIGNANT NEOPLASM OF ERROL Z78.0 ASYMPTOMATIC MENOPAUSAL STATE COMPARISON: 02/23/2017 TECHNIQUE: Dual-Energy X-ray Absorptiometry (DEXA) of the AP Spine and Hip. LIMITATIONS: None. FINDINGS: LUMBAR SPINE: The bone mineral density (BMD) measured from L1-L4 in the AP projection correlates with a T-score of -3.3, which is osteoporosis as defined by the World Health Organization. BMD Change vs Baseline: 2% decrease. HIP: The bone mineral density (BMD) measured in the left hip correlates with a T-score of -3.0, which is o steoporosis as defined by the World Health Organization. BMD Change vs Baseline: 5% increase. 10 year Fracture Risk Assessment: Major Osteoporotic Fracture: Not available. Hip Fracture: Not available. IMPRESSION: 1. LUMBAR SPINE WHO CLASSIFICATION: OSTEOPOROSIS. 2. HIP WHO CLASSIFICATION: OSTEOPOROSIS. OVERALL ASSESSMENT: WHO CLASSIFICATION: OSTEOPOROSIS. COMMENT: The World Health Organization defines low BMD as follows: T-score: Normal: Greater than -1.0 Osteopenia: Between -1.0 and -2.5 Osteoporosis: Less than -2.5 without fractures Established osteoporosis: Less than -2.5 with fractures In general, you may wish to consider: Diagnosis Treatment Follow-up DEXA Normal BMD Prevention 2-3 years Osteopenia Prevention/Therapy 1-2 years Osteoporosis Therapy Yearly TECHNICAL DOCUMENTATION: JOB ID: [id number] [employer]- All Rights Reserved Reading location - IP/workstation name: [email or web address]
== END ==
LOC: WI 07:29
PROVIDERS: ATTEND Physician Assistant
DX: Z12.31 Encounter for screening mammogram for malignant neoplasm of breast (principal); M81.0 Age-related osteoporosis without current pathological fracture; Z78.0 Asymptomatic menopausal state
CPT/HCPCS: 77063; 77067; 77080

== ENCOUNTER 2019-11-25 17:57 | Emergency (ER) | payer BC ==
--- NOTE | 2019-11-25 19:04 | ER Document Report ---
ED Medical Screen (RME) - General Chief Complaint: Abdominal Swelling Stated Complaint: ABDOMINAL PAIN Time Seen by Provider: 11/25/19 19:00 Primary Care Provider: MYKEL PATEL PA [Primary Care Provider] - Follow up as needed TRAVEL OUTSIDE OF THE [place] IN LAST 30 DAYS: No - HPI Notes: 11/25/19 19:03 Patient is a 69-year-old female with multiple chronic health issues including gastroparesis who presents complaint acute on chronic abdominal pain. Patient states that she feels bloated and full. She is still having normal bowel movements and is urinating normally. She has not been having any nausea or vomiting. I did offer Reglan, but patient is declining at this time. No fever, chest pain, shortness of breath. I have treated and performed a rapid initial assessment of this patient. A comprehensive ED assessment and evaluation of the patient, analysis of test results and completion of medical decision making process will be conducted by additional ED providers. PHYSICAL EXAMINATION: GENERAL: Well-appearing, well-nourished and in no acute distress. A&Ox4. Answers questions appropriately. - Related Data Allergies/Adverse Reactions: Sulfa (Sulfonamide Antibiotics) Allergy (Severe, Verified 11/25/19 18:59) heart beats very fast latex Allergy (Verified 11/25/19 18:59) NSAIDS (Non-Steroidal Anti-Inflamma [Nsaids] Allergy (Verified 11/25/19 18:59) ciprofloxacin [From Cipro] Adverse Reaction (Verified 11/25/19 18:59) levofloxacin [From Levaquin] Adverse Reaction (Verified 11/25/19 18:59) nitrofurantoin Adverse Reaction (Verified 11/25/19 18:59) Past Medical History - Social History Family history: None - Past Medical History Cardiac Medical History: Reports: Hx Coronary Artery Disease - cholesterol, Hx Hypercholesterolemia Pulmonary Medical History: Reports: Hx COPD Endocrine Medical History: Reports: Hx Hypothyroidism - After having her thyroid removed for cancer in October, Renal/ Medical History: Reports: Hx Kidney Stones. Denies: Hx Peritoneal Dialysis Malignancy Medical History: Reports: Hx Breast Cancer GI Medical History: Reports: Hx Gastroesophageal Reflux Disease, Hx Hiatal Hernia Musculoskeltal Medical History: Reports Hx Arthritis, Reports Hx Multiple Sclerosis - per pt although the lp'S were negative Psychiatric Medical History: Reports: Hx Anxiety Past Surgical History: Reports: Hx Appendectomy, Hx Bowel Surgery, Hx Section, Hx Cholecystectomy, Hx Hysterectomy, Hx Mastectomy, Hx Orthopedic Surgery - left rotator cuff, Hx Thyroid Surgery, Hx Urinary Tract Surgery - BLADDER POLYPS REMOVED - Immunizations Immunizations up to date: Yes Hx Diphtheria, Pertussis, Tetanus Vaccination: Yes Physical Exam - Vital signs Vitals: Temp Pulse Resp BP Pulse Ox 99.1 F 57 L 16 102/46 L 97 11/25/19 18:54 11/25/19 18:54 11/25/19 18:54 11/25/19 18:54 11/25/19 18:54 Course - Vital Signs Vital signs: Temp Pulse Resp BP Pulse Ox 99.1 F 57 L 16 102/46 L 97 11/25/19 18:54 11/25/19 18:54 11/25/19 18:54 11/25/19 18:54 11/25/19 18:54 Doctor's Discharge - Discharge Referrals: MYKEL PATEL PA [Primary Care Provider] - Follow up as needed
[2019-11-25 19:36] LABS: ABSOLUTE EOSINOPHILS # (AUTO) 0.3 10^3/uL (0.0-0.6); ABSOLUTE LYMPHOCYTES (AUTO) 2.1 10^3/uL (0.5-4.7); ABSOLUTE MONOCYTES (AUTO) 0.4 10^3/uL (0.1-1.4); ABSOLUTE NEUT (AUTO) 1.8 10^3/uL (1.7-8.2); BASOPHILS % (AUTO) 0.9 % (0-2); EOSINOPHILS % (AUTO) 7.5 % (0-6); HEMATOCRIT 41.9 % (36.0-47.0); HEMOGLOBIN 14.6 g/dL (12.0-15.5); LYMPHOCYTES % (AUTO) 43.8 % (13-45); MEAN CORPUSCULAR HEMOGLOBIN 33.1 pg (27.0-33.4); MEAN CORPUSCULAR HGB CONC 34.8 g/dL (32.0-36.0); MEAN CORPUSCULAR VOLUME 95 fl (80-97); MONOCYTES % (AUTO) 9.3 % (3-13); PLATELET COUNT 249 10^3/uL (150-450); SEGMENTED NEUTROPHILS % (AUTO) 38.5 % (42-78); TOTAL CELLS COUNTED % (AUTO) 100 %; WHITE BLOOD COUNT 4.7 10^3/uL (4.0-10.5)
[2019-11-25 19:42] LABS: APPEARANCE,URINE CLEAR; BILIRUBIN,URINE NEGATIVE (NEGATIVE); COLOR,URINE YELLOW; GLUCOSE, URINE NEGATIVE (NEGATIVE); KETONES,URINE NEGATIVE (NEGATIVE); PROTEIN,URINE NEGATIVE (NEGATIVE); UROBILINOGEN,URINE NEGATIVE mg/dL (<2.0)
[2019-11-25 19:57] LABS: ALBUMIN 4.3 g/dL (3.5-5.0); ALKALINE PHOSPHATASE 85 U/L (38-126); ANION GAP 7 (5-19); ASPARTATE AMINO TRANSFERASE 41 U/L (14-36); BILIRUBIN,TOTAL 0.3 mg/dL (0.2-1.3); BLOOD UREA NITROGEN 39 mg/dL (7-20); CALCIUM 9.8 mg/dL (8.4-10.2); CARBON DIOXIDE 31 mmol/L (22-30); CHLORIDE 102 mmol/L (98-107); GLUCOSE 76 mg/dL (75-110); POTASSIUM 5.5 mmol/L (3.6-5.0); TOTAL PROTEIN 7.2 g/dL (6.3-8.2)
--- NOTE | 2019-11-25 20:19 | RADIOLOGY REPORT (SQ) ---
EXAM DESCRIPTION: XR ABDOMEN 1 VIEW (KUB) COMPLETED DATE/TME: 11/25/2019 19:04 CLINICAL HISTORY: 69 years, Female, abd pain COMPARISON: None. NUMBER OF VIEWS: Single TECHNIQUE: LIMITATIONS: None. FINDINGS: Nonspecific gas pattern. Significant hard stool throughout the colon. No obvious free air in this supine image. Pelvic floor incompletely imaged. Postsurgical change from presumed cholecystectomy IMPRESSION: No high-grade obstruction. Significant hard stool throughout the colon copyright 2010 [employer]- All Rights Reserved
--- NOTE | 2019-11-25 22:57 | RADIOLOGY REPORT (SQ) ---
EXAM DESCRIPTION: CT ABDOMEN PELVIS WITHOUT IV CONTRAST COMPLETED DATE/TME: 11/25/2019 22:07 CLINICAL HISTORY: 69 years Female, abdominal pain and swelling, contrast allergy Comparison: None. Technique: No contrast. Coronal and sagittal reformat. This exam was performed according to our departmental dose-optimization program, which includes automated exposure control, adjustment of the mA and/or kV according to patient size and/or use of iterative reconstruction technique.[facility]: Dose Right [facility]: CareDose [facility]: Dose Right [facility]: Teradose 4D [facility]: ECS Tuning LIMITATIONS: None Findings: Cholecystectomy. Stool retention. No ascites. No pneumoperitoneum. Appendicolith(s) and/or retained contrast. No evidence of appendicitis. No bowel obstruction. No hydronephrosis or hydroureter. No renal/ureteral stone. No evidence of abdominal aortic aneurysm. No gross evidence of thecal sac/cord or nerve root compression. Unenhanced lower thorax, abdominopelvic structures, and musculoskeleton appear otherwise grossly unremarkable. Impression: No acute findings.
--- NOTE | 2019-11-25 23:03 | ER Document Report ---
Entered by HARVEY CARDENAS SCRIBE 11/25/194 Acting as scribe for:DALE CHOWDHURY IV, MD ED GI/ - General Chief Complaint: Abdominal Distention Stated Complaint: ABDOMINAL PAIN Time Seen by Provider: 11/25/19 19:00 Primary Care Provider: MYKEL PATEL PA [NO LOCAL MD] - Follow up as needed Mode of Arrival: Ambulatory Information source: Patient Notes: This 69 year old female patient with a history of gastroparesis presents to the ED today with complaints of chronic abdominal pain that became more severe this evening. Patient states that the pain is so severe that she had difficulty breathing and it affects her posture. Patient notes that she is concerned that she may have bezoars. Patient states that she feels bloated and that she is still having normal bowel movements. Patient also reports weight loss, stating that she has lost x10 lbs in the last x6 months. Patient denies nausea, vomiting, diarrhea, fever, chest pain, or shortness of breath. TRAVEL OUTSIDE OF THE [place] IN LAST 30 DAYS: No - Related Data Allergies/Adverse Reactions: Sulfa (Sulfonamide Antibiotics) Allergy (Severe, Verified 11/25/19 18:59) heart beats very fast latex Allergy (Verified 11/25/19 18:59) NSAIDS (Non-Steroidal Anti-Inflamma [Nsaids] Allergy (Verified 11/25/19 18:59) ciprofloxacin [From Cipro] Adverse Reaction (Verified 11/25/19 18:59) Iodinated Contrast Media Adverse Reaction (Verified 11/25/19 22:17) levofloxacin [From Levaquin] Adverse Reaction (Verified 11/25/19 18:59) nitrofurantoin Adverse Reaction (Verified 11/25/19 18:59) Past Medical History - General Information source: Patient - Social History Smoking Status: Former Smoker Cigarette use (# per day): No Chew tobacco use (# tins/day): No Smoking Education Provided: No Family History: Reviewed & Not Pertinent Patient has suicidal ideation: No Patient has homicidal ideation: No - Past Medical History Cardiac Medical History: Reports: Hx Coronary Artery Disease - cholesterol, Hx Hypercholesterolemia Pulmonary Medical History: Reports: Hx COPD Endocrine Medical History: Reports: Hx Hypothyroidism - After having her thyroid removed for cancer in October, Renal/ Medical History: Reports: Hx Kidney Stones Malignancy Medical History: Reports: Hx Breast Cancer GI Medical History: Reports: Hx Gastroesophageal Reflux Disease, Hx Hiatal Hernia Musculoskeletal Medical History: Reports Hx Arthritis, Reports Hx Multiple Sclerosis - per pt although the lp'S were negative Psychiatric Medical History: Reports: Hx Anxiety Past Surgical History: Reports: Hx Appendectomy, Hx Bowel Surgery, Hx Section, Hx Cholecystectomy, Hx Hysterectomy, Hx Mastectomy, Hx Orthopedic Surgery - left rotator cuff, Hx Thyroid Surgery, Hx Urinary Tract Surgery - BLADDER POLYPS REMOVED - Immunizations Immunizations up to date: Yes Hx Diphtheria, Pertussis, Tetanus Vaccination: Yes Hx Pneumococcal Vaccination: 10/02/10 Review of Systems - Review of Systems Constitutional: See HPI, Weight loss. denies: Fever EENT: No symptoms reported Cardiovascular: See HPI, Dyspnea. denies: Chest pain Respiratory: See HPI. denies: Short of breath Gastrointestinal: See HPI, Abdominal pain. denies: Diarrhea, Nausea, Vomiting Genitourinary: No symptoms reported Female Genitourinary: No symptoms reported Musculoskeletal: No symptoms reported Skin: No symptoms reported Hematologic/Lymphatic: No symptoms reported Neurological/Psychological: No symptoms reported -: Yes All other systems reviewed and negative Physical Exam - Vital signs Vitals: Temp Pulse Resp BP Pulse Ox 99.1 F 57 L 16 102/46 L 97 11/25/19 18:54 11/25/19 18:54 11/25/19 18:54 11/25/19 18:54 11/25/19 18:54 - General General appearance: Anxious - HEENT Head: Normocephalic, Atraumatic Eyes: Normal Pupils: PERRL - Respiratory Respiratory status: No respiratory distress Chest status: Nontender Breath sounds: Normal Chest palpation: Normal - Cardiovascular Rhythm: Regular Heart sounds: Normal auscultation Murmur: No Friction rub: No Gallop: None auscultated - Abdominal Inspection: Normal Distension: Distended - Slighty Bowel sounds: Normal Tenderness: Nontender - Abdomen soft Organomegaly: No organomegaly - Back Back: Normal, Nontender - Extremities General upper extremity: Normal inspection General lower extremity: Normal inspection - Neurological Neuro grossly intact: Yes - Psychological Associated symptoms: Anxious - Skin Skin Temperature: Warm Skin Moisture: Dry Skin Color: Normal Course - Re-evaluation Re-evalutation: 11/25/19 23:11 Findings of ED MSE discussed with patient. Patient was made aware that she does have a appendicolith but does not have any apparent signs of appendicitis on CAT scan. Signs and symptoms of appendicitis, emergency signs and symptoms, reasons to return to the ED discussed with patient. - Vital Signs Vital signs: Temp Pulse Resp BP Pulse Ox 97.4 F 51 L 20 81/65 L 100 11/25/19 22:21 11/25/19 22:21 11/25/19 22:21 11/25/19 22:21 11/25/19 22:21 - Laboratory Result Diagrams: 11/25/19 19:10 11/25/19 19:10 Laboratory results interpreted by me: 11/25/19 11/25/19 11/25/19 19:10 19:10 19:10 Eos % (Auto) 7.5 H Seg Neutrophils % 38.5 L Potassium 5.5 H Carbon Dioxide 31 H BUN 39 H AST 41 H ALT 46 H Lipase 306.2 H Leukocyte Esterase Rfl MODERATE H Urine Ascorbic Acid 40 H Discharge - Discharge Clinical Impression: Abdominal distention Condition: Good Disposition: HOME, SELF-CARE Additional Instructions: Return to the Emergency Department without delay if any worse. HOME CARE INSTRUCTIONS & INFORMATION: Thank you for choosing us for your medical needs. We hope you're satisfied with the care you received. After you leave, you must properly care for your problem and, at the same time, observe its progress. Any condition can change. Some illnesses can change rapidly over hours or days. If your condition worsens, return to the Emergency Department or see your physician promptly. ABOUT YOUR X-RAYS AND EKG'S: If you had an EKG or X-rays taken, they have been read by the Emergency Physician. The X-rays and EKG's will also be read by a Radiologist or Order Checker within 24 hours. If discrepancies are noted, you will be notified by telephone. Please be certain the ED has a correct telephone number & address where you can be reached. Also, realize that some fractures or abnormalities do not show up on initial X-rays. If your symptoms continue, see your physician. ABOUT YOUR LABORATORY TEST: If you had laboratory tests, the results have been reviewed by the Emergency Physician. Some test results (for example cultures) may not be available for several days. You will be contacted if any test result shows you need additional treatment. Please be certain the ED has a correct telephone number and address where you can be reached. ABOUT YOUR MEDICATIONS: You will receive instructions on how to take your medicine on the prescription label you receive. Additional information may be provided by the Pharmacy. If you have questions afterwards, call the ED for clarification or further instructions. Some prescribed medications may cause drowsiness. Do not perform tasks such as driving a car or operating machinery without consulting your Pharmacist. If you feel you need a refill of pain medication, your condition will need re-evaluation. Please do not call for a refill of any medication. ABOUT YOUR SIGNATURE: Signature of this document acknowledges to followin. Understanding that you received emergency treatment and that you may be released before al medical problems are known or treated. Please be certain the ED has a correct phone number & address where you can be reached. 2. Acknowledgement that you will arrange for follow-up care as recommended. 3. Authorization for the Emergency Physician to provide information to your follow-up Physician in order to maximize your care. AT ANY TIME, IF YOUR SYMPTOMS CHANGE SIGNIFICANTLY OR WORSEN OR YOU DEVELOP NEW SYMPTOMS, RETURN TO THE EMERGENCY DEPARTMENT IMMEDIATELY FOR RE-EVALUATION. OUR GOAL IS TO PROVIDE EXCELLENT MEDICAL CARE! WE HOPE THAT WE HAVE MET YOUR EXPECTATIONS DURING YOUR EMERGENCY DEPARTMENT VISIT AND THAT YOU FEEL YOU HAVE RECEIVED EXCELLENT CARE! Referrals: MYKEL PATEL PA [NO LOCAL MD] - Follow up as needed I personally performed the services described in the documentation, reviewed and edited the documentation which was dictated to the scribe in my presence, and it accurately records my words and actions.
[2019-11-25] MEDS ORDERED: MAGNESIUM CITRATE 296 ML BOTTLE PO ONE (23:04)
[2019-11-25 23:26] VITALS: BP 100/59
== END 2019-11-25 23:27 | disposition home or self-care (01) ==
LOC: ER 17:57
DX: R14.0 Abdominal distension (gaseous) (principal); R10.9 Unspecified abdominal pain; R63.4 Abnormal weight loss; R06.00 Dyspnea, unspecified; E78.00 Pure hypercholesterolemia, unspecified; J44.9 Chronic obstructive pulmonary disease, unspecified; E03.9 Hypothyroidism, unspecified; Z87.442 Personal history of urinary calculi; Z85.3 Personal history of malignant neoplasm of breast; Z90.49 Acquired absence of other specified parts of digestive tract; Z90.710 Acquired absence of both cervix and uterus; Z88.2 Allergy status to sulfonamides; Z91.040 Latex allergy status
CPT/HCPCS: 99284; 36415; 87086; 83690; 85025; 87088; 80053; 81001; 87186; 74018; 74176; J3490

== ENCOUNTER 2019-11-27 07:20 | Emergency (ER) | payer BC ==
[2019-11-27] MEDS ORDERED: MINERAL OIL 30 ML UDCUP PR ONE (08:26)
[2019-11-27] MEDS ORDERED: LACTULOSE SYRUP 20 GM/30 ML UDCUP PO ONE (08:27)
--- NOTE | 2019-11-27 08:27 | ER Document Report ---
ED General - General Chief Complaint: Constipation Stated Complaint: CONSTIPATION Time Seen by Provider: 11/27/19 08:12 Primary Care Provider: CARLENE BAKER MD [Primary Care Provider] - Follow up as needed TRAVEL OUTSIDE OF THE [place] IN LAST 30 DAYS: No - HPI Notes: Patient is a 69-year-old female with a history of gastroparesis and chronic issues with constipation who presents complaining of constipation acute on chronic for the past week or so. Patient states that she did have some small hard stools come out today. She was here 2 days ago and had an unremarkable CT scan aside from an appendicolith otherwise asymptomatic. She did have constipation her KUB. Patient states that she did take magnesium citrate at home which did not seem to help. She is otherwise urinating normally. She has not been having any abdominal pain that she had 2 days ago. Denies any headache, fever, neck pain, URI, sore throat, chest pain, palpitations, syncope, cough, shortness of breath, wheeze, dyspnea, abdominal pain, nausea/vomiting/diarrhea, urinary retention, dysuria, hematuria, or rash. - Related Data Allergies/Adverse Reactions: Sulfa (Sulfonamide Antibiotics) Allergy (Severe, Verified 11/27/19 07:34) heart beats very fast cephalexin [From Keflex] Allergy (Verified 11/27/19 07:34) latex Allergy (Verified 11/27/19 07:34) NSAIDS (Non-Steroidal Anti-Inflamma [Nsaids] Allergy (Verified 11/27/19 07:34) ciprofloxacin [From Cipro] Adverse Reaction (Verified 11/27/19 07:34) Iodinated Contrast Media Adverse Reaction (Verified 11/27/19 07:34) levofloxacin [From Levaquin] Adverse Reaction (Verified 11/27/19 07:34) nitrofurantoin Adverse Reaction (Verified 11/27/19 07:34) Home Medications: simvastatin. synthroid Past Medical History - Social History Smoking Status: Never Smoker Chew tobacco use (# tins/day): No Frequency of alcohol use: Rare Drug Abuse: None Family History: Reviewed & Not Pertinent Patient has suicidal ideation: No Patient has homicidal ideation: No - Past Medical History Cardiac Medical History: Reports: Hx Coronary Artery Disease - cholesterol, Hx Hypercholesterolemia Pulmonary Medical History: Reports: Hx COPD Endocrine Medical History: Reports: Hx Hypothyroidism - After having her thyroid removed for cancer in October, Renal/ Medical History: Reports: Hx Kidney Stones. Denies: Hx Peritoneal Dialysis Malignancy Medical History: Reports: Hx Breast Cancer GI Medical History: Reports: Hx Gastroesophageal Reflux Disease, Hx Hiatal Hernia Musculoskeletal Medical History: Reports Hx Arthritis, Reports Hx Multiple Sclerosis - per pt although the lp'S were negative Psychiatric Medical History: Reports: Hx Anxiety Past Surgical History: Reports: Hx Appendectomy, Hx Bowel Surgery, Hx Section, Hx Cholecystectomy, Hx Hysterectomy, Hx Mastectomy, Hx Orthopedic Surgery - left rotator cuff, Hx Thyroid Surgery, Hx Urinary Tract Surgery - BLADDER POLYPS REMOVED - Immunizations Immunizations up to date: Yes Hx Diphtheria, Pertussis, Tetanus Vaccination: Yes Hx Pneumococcal Vaccination: 10/02/10 Review of Systems - Review of Systems -: Yes All other systems reviewed and negative Physical Exam - Vital signs Vitals: Temp Pulse Resp BP Pulse Ox 97.9 F 79 16 126/65 H 98 11/27/19 07:27 11/27/19 07:27 11/27/19 07:27 11/27/19 07:27 11/27/19 07:27 - Notes Notes: PHYSICAL EXAMINATION: GENERAL: Well-appearing, well-nourished and in no acute distress. HEAD: Atraumatic, normocephalic. EYES: Pupils equal round and reactive to light, extraocular movements intact, sclera anicteric, conjunctiva are normal. ENT: EAC clear b/l. TM's intact b/l without erythema, fluid, or perforation. Nares patent and without discharge. oropharynx clear without exudates. No tonsilar hypertrophy or erythema. Moist mucous membranes. No sinus tenderness. NECK: Normal range of motion, supple without lymphadenopathy LUNGS: Breath sounds clear to auscultation bilaterally and equal. No wheezes rales or rhonchi. HEART: Regular rate and rhythm without murmurs, rubs, gallops. ABDOMEN: Soft, nontender, nondistended abdomen. No guarding, no rebound. No masses appreciated. Normal bowel sounds present. No CVA tenderness bilaterally. Rectal (accompanied by Vanessa): no impaction noted. No melena or hematochezia. Musculoskeletal: FROM to passive/active. Strength 5+/5. Extremities: No cyanosis, clubbing, or edema b/l. Peripheral pulses 2+. Capillary refill less than 3 seconds. NEUROLOGICAL: Normal speech, normal gait. PSYCH: Normal mood, normal affect. SKIN: Warm, Dry, normal turgor, no rashes or lesions noted. Course - Re-evaluation Re-evalutation: 11/27/19 10:08 Patient is an afebrile, well-hydrated, 69-year-old female who presents with constipation secondary most likely to her gastroparesis. This is a chronic issue. Vitals are acceptable without significant tachycardia, tachypnea, hypoxia. PE is otherwise unremarkable. Patient's abdomen is soft nontender throughout. KUB unremarkable. There is no impaction in her rectal vault. Patient did receive an enema which did yield some stool. No further work-up warranted at this time. She does have a gastroenterology doctor which she can call tomorrow. She was seen 2 days ago and had an unremarkable work-up at that time as well aside from constipation. She is also still declining Reglan. Low suspicion/risk for acute appendicitis, bowel obstruction, acute cholecystitis, acute cholangitis, perforated diverticulitis, incarcerated hernia, pancreatitis, perforated ulcer, peritonitis, sepsis, pelvic inflammatory disease, ectopic , tubo-ovarian abscess, ovarian torsion, or other systemic emergent condition at this time. Patient is aware that her condition can change from initial presentation and she needs to monitor symptoms closely and seek medical attention if any acute changes. Patient was noted to have a UTI at her last visit so I will send her home on doxycycline due to her extensive allergy list and sensitivity to the E. coli. Conservative measures otherwise for symptoms. Recheck with your PCM in 2-3 days. Schedule consult with GI. Return to the ED with any worsening/concerning symptoms otherwise as reviewed in discharge. Patient is in agreement. - Vital Signs Vital signs: Temp Pulse Resp BP Pulse Ox 97.9 F 79 16 126/65 H 98 11/27/19 07:27 11/27/19 07:27 11/27/19 07:27 11/27/19 07:27 11/27/19 07:27 Discharge - Discharge Clinical Impression: Acute UTI (urinary tract infection) Constipation Qualifiers: Constipation type: unspecified constipation type Qualified Code(s): K59.00 - Constipation, unspecified Condition: Stable Disposition: HOME, SELF-CARE Instructions: Urinary Tract Infection ([facility]), Constipation ([facility]) Additional Instructions: Maintain adequate fluid and food intake increase fiber/water in diet tylenol if needed Monitor for any worsening symptoms Make sure you are staying hydrated enough to urinate and have normal BM's Recheck with your PCM in 2-3 days Schedule consult with your children's program coordinator this week. Return to the ED with any worsening symptoms and/or development of fever, headache, chest pain, palpitations, syncope, shortness of breath, trouble breathing, abdominal pain, n/v/d, blood in stool/urine, weakness, or other worsening symptoms that are concerning to you. Prescriptions: Doxycycline Hyclate 100 mg PO BID #20 tablet.dr Referrals: CARLENE BAKER MD [Primary Care Provider] - Follow up as needed DOMINIC CHUN MD [ACTIVE STAFF] - Follow up in 3-5 days
--- NOTE | 2019-11-27 08:43 | RADIOLOGY REPORT (SQ) ---
EXAM DESCRIPTION: KUB/ABDOMEN (SINGLE VIEW) COMPLETED DATE/TIME: 11/27/2019 8:33 am REASON FOR STUDY: constipation COMPARISON: 11/25/2019. NUMBER OF VIEWS: One view. TECHNIQUE: Supine radiographic image of the abdomen acquired. LIMITATIONS: None. FINDINGS: BOWEL GAS PATTERN: Normal bowel gas pattern. No dilated loops. Prominent stool throughout . CALCIFICATIONS: No suspicious calcifications. SOFT TISSUES: No gross mass or suggestion of organomegaly. HARDWARE: Surgical clips in the upper abdomen. BONES: No acute fracture. No worrisome bone lesions. OTHER: No other significant finding. IMPRESSION: NO RADIOGRAPHIC EVIDENCE FOR ACUTE ABDOMINAL DISEASE. CONSTIPATION. TECHNICAL DOCUMENTATION: JOB ID: [id number] 2010 [employer]- All Rights Reserved Reading location - IP/workstation name: [email or web address]
[2019-11-27] MEDS ORDERED: MAGNESIUM CITRATE 296 ML BOTTLE PO ONE (10:11)
[2019-11-27 11:27] VITALS: BP 114/45
== END 2019-11-27 11:00 | disposition home or self-care (01) ==
LOC: ER 07:20
DX: N39.0 Urinary tract infection, site not specified (principal); K59.00 Constipation, unspecified; Z88.2 Allergy status to sulfonamides; Z88.8 Allergy status to other drugs, medicaments and biological substances; I25.10 Atherosclerotic heart disease of native coronary artery without angina pectoris; J44.9 Chronic obstructive pulmonary disease, unspecified
CPT/HCPCS: 99283; 74018; J3490 ×2

== ENCOUNTER 2020-01-19 09:35 | Emergency (ER) | payer BC ==
[2020-01-19 09:51] VITALS: BP 111/48
[2020-01-19 10:14] LABS: A TYPE INFLUENZA AG NEGATIVE (NEGATIVE); B INFLUENZA AG NEGATIVE (NEGATIVE)
--- NOTE | 2020-01-19 10:27 | RADIOLOGY REPORT (SQ) ---
EXAM DESCRIPTION: CHEST SINGLE VIEW IMAGES COMPLETED DATE/TIME: 01/19/2020 10:11 am REASON FOR STUDY: cough, chest discomfort, congestion COMPARISON: 08/09/2019. NUMBER OF VIEWS: One view. TECHNIQUE: Single frontal radiographic view of the chest acquired. LIMITATIONS: None. FINDINGS: LUNGS AND PLEURA: No opacities, masses or pneumothorax. No pleural effusion. Attenuated bl ood vessels and flattened jimi-diaphragms. MEDIASTINUM AND HILAR STRUCTURES: No masses. Contour normal. HEART AND VASCULAR STRUCTURES: Heart normal in size. Normal vasculature. BONES: No acute findings. HARDWARE: None in the chest. OTHER: No other significant finding. IMPRESSION: COPD. NO ACUTE RADIOGRAPHIC FINDING IN THE CHEST. TECHNICAL DOCUMENTATION: JOB ID: [id number] 2010 [employer]- All Rights Reserved Reading location - IP/workstation name: [email or web address]
--- NOTE | 2020-01-19 11:26 | ER Document Report ---
ED General - General Chief Complaint: Cough Stated Complaint: COUGH Time Seen by Provider: 01/19/20 10:09 Primary Care Provider: CARLENE BAKER MD [Primary Care Provider] - Follow up as needed TRAVEL OUTSIDE OF THE [place] IN LAST 30 DAYS: No - HPI Notes: Patient is a 69-year-old female who presents to the emergency department stating "I want tested for COVID." She states she has some body aches. She has had an intermittent dry cough. She denies any fevers. No nasal congestion, no vomiting. She has had no diarrhea. She has only an intermittent cough and constipation. She has not been exposed to any known coronavirus patients. She balderrama the patient has chosen to leave the facility against medical advice. The relevant issues have been reviewed and discussed with the patient and family at the bedside. At the time of this assessment there is no indication for involuntary commitment. The patient is alert, oriented, and able to express clearly their reasoning for not wanting to remain in the emergency department for further treatment. The patient is not clinically psychotic, intoxicated, and denies and suicidal ideation. Differential or suspected diagnoses based on medical screening exam: . The patient is aware of the concerning diagnoses and acknowledges understanding of the reasons for the following recommendations: The following recommendations/services were offered and refused: The following risks were explained: , permanent disability, loss of function Clinical impression: Patient is competent to make decisions regarding the medical that is being offered. S been following social distancing protocols, is barely leaving her house. - Related Data Allergies/Adverse Reactions: Sulfa (Sulfonamide Antibiotics) Allergy (Severe, Verified 01/19/20 09:52) heart beats very fast cephalexin [From Keflex] Allergy (Verified 01/19/20 09:52) latex Allergy (Verified 01/19/20 09:52) NSAIDS (Non-Steroidal Anti-Inflamma [Nsaids] Allergy (Verified 01/19/20 09:52) ciprofloxacin [From Cipro] Adverse Reaction (Verified 01/19/20 09:52) Iodinated Contrast Media Adverse Reaction (Verified 01/19/20 09:52) levofloxacin [From Levaquin] Adverse Reaction (Verified 01/19/20 09:52) nitrofurantoin Adverse Reaction (Verified 01/19/20 09:52) Home Medications: simvastatin, levothryoxine Past Medical History - General Information source: Patient - Social History Smoking Status: Former Smoker Chew tobacco use (# tins/day): No Frequency of alcohol use: None Drug Abuse: None Family History: Reviewed & Not Pertinent Patient has suicidal ideation: No Patient has homicidal ideation: No - Past Medical History Cardiac Medical History: Reports: Hx Hypercholesterolemia Pulmonary Medical History: Reports: Hx COPD Endocrine Medical History: Reports: Hx Hypothyroidism - After having her thyroid removed for cancer in October, Renal/ Medical History: Reports: Hx Kidney Stones. Denies: Hx Peritoneal D ialysis Malignancy Medical History: Reports: Hx Breast Cancer GI Medical History: Reports: Hx Gastroesophageal Reflux Disease, Hx Hiatal Hernia Musculoskeletal Medical History: Reports Hx Arthritis, Reports Hx Multiple Sclerosis - per pt although the lp'S were negative Psychiatric Medical History: Reports: Hx Anxiety Past Surgical History: Reports: Hx Appendectomy, Hx Bowel Surgery, Hx Section, Hx Cholecystectomy, Hx Hysterectomy, Hx Mastectomy, Hx Orthopedic Rivera rgery - left rotator cuff, Hx Thyroid Surgery, Hx Urinary Tract Surgery - BLADDER POLYPS REMOVED - Immunizations Immunizations up to date: Yes Hx Diphtheria, Pertussis, Tetanus Vaccination: Yes Hx Pneumococcal Vaccination: 10/02/10 Review of Systems - Review of Systems Respiratory: See HPI Gastrointestinal: See HPI Musculoskeletal: See HPI -: Yes All other systems reviewed and negative Physical Exam - Vital signs Vitals: Temp Pulse Resp BP Pulse Ox 97.9 F 65 18 111/48 L 100 01/19/20 09:35 01/19/20 09:35 01/19/20 09:35 01/19/20 09:35 01/19/20 09:35 - Notes Notes: This is a pleasant 69-year-old female who appears anxious, but is otherwise in no acute distress. Vital signs reviewed, please refer to chart. Head is normocephalic, atraumatic. Pupils equal round, reactive to light. Neck is supple without meningismus. Heart is regular rate and rhythm. Lungs are clear to auscultation bilaterally. Abdomen is soft, nontender, normoactive bowel sounds throughout. Extremities without cyanosis, clubbing. Posterior calves are nontender. Peripheral pulses are equal. Skin is warm and dry. Patient is awake, alert, neurological exam is nonfocal. Course - Re-evaluation Re-evalutation: 01/19/20 11:24 Patient presents to the emergency department for evaluation. She is concerned she could have coronavirus. I explained to the patient she has no significant r isks for coronavirus, has no significant symptoms for coronavirus except for a very mild intermittent cough, which she states is really not much different from her baseline. She states she just feels achy, is concerned about this possibility. I offered her testing, but I explained to her that I did not believe she has any signs of coronavirus at this time, and I really did not think it was necessary. We talked at length about the anxiety induced by concern over coronavirus, and we talked about the behaviors that could minimize her risk. She voiced understanding and was agreeable to not having testing performed at this time. We talked again about symptoms that should prompt her to return, including but certainly not limited to prolonged fevers, difficulty breathing, vomiting. She voiced understanding to this and is discharged. 01/19/20 11:30 Influenza and strep negative. - Vital Signs Vital signs: Temp Pulse Resp BP Pulse Ox 97.9 F 65 18 111/48 L 100 01/19/20 09:35 01/19/20 09:35 01/19/20 09:35 01/19/20 09:35 01/19/20 09:35 - Diagnostic Test Radiology reviewed: Reports reviewed Radiology results interpreted by me: 01/19/20 11:30 Chest X-Ray 01/19/20 00:00 IMPRESSION: COPD. NO ACUTE RADIOGRAPHIC FINDING IN THE CHEST. Discharge - Discharge Clinical Impression: Generalized body aches, Cough Condition: Stable Disposition: HOME, SELF-CARE Instructions: Cough Suppressant & Expectorant Medications Additional Instructions: You have been evaluated here, and has been deemed that you have no significant signs or risk factors for coronavirus at this time. Please continue social distancing and isolation procedures as discussed. It is reasonable for you to quarantine for 14 days given your concern and your minimal cough. Please rest and stay well-hydrated. If you develop shortness of breath, or any other new or concerning symptoms, please return to the emergency department for further evaluation. Referrals: CARLENE BAKER MD [Primary Care Provider] - Follow up as needed
== END 2020-01-19 11:40 | disposition home or self-care (01) ==
LOC: ER 09:35
DX: M79.10 Myalgia, unspecified site (principal); R05 Cough; K59.00 Constipation, unspecified; F41.9 Anxiety disorder, unspecified; Z87.891 Personal history of nicotine dependence; J44.9 Chronic obstructive pulmonary disease, unspecified
CPT/HCPCS: 71045; 87070; 87804; 87880; 99283

== ENCOUNTER 2020-03-07 15:18 | Emergency (ER) | payer BC ==
--- NOTE | 2020-03-07 15:33 | ER Document Report ---
ED Medical Screen (RME) - General Chief Complaint: Constipation Stated Complaint: CONSTIPATION Time Seen by Provider: 03/07/20 15:32 Primary Care Provider: CARLENE BAKER MD [Primary Care Provider] - Follow up as needed Mode of Arrival: Ambulatory Information source: Patient Notes: 69-year-old female presented to ED for "constipation. She states she is got a history of small bowel obstruction with gastroparesis. She states she is severely constipated at this time. She states she does have a history of a stone in her appendix. She states she is very manageable at this time and needs to be completely cleaned out. I explained to her that we will get some blood work and an x-ray first to ensure that there was nothing else going on besides constipation before starting given her enemas. Patient is alert oriented respirations regular and unlabored speaking in full sentences. I have greeted and performed a rapid initial assessment of this patient. A comprehensive ED assessment and evaluation of the patient, analysis of test results and completion of medical decision making process will be conducted by an additional ED providers. TRAVEL OUTSIDE OF THE [place] IN LAST 30 DAYS: No - Related Data Allergies/Adverse Reactions: Sulfa (Sulfonamide Antibiotics) Allergy (Severe, Verified 03/07/20 15:28) heart beats very fast cephalexin [From Keflex] Allergy (Verified 03/07/20 15:28) latex Allergy (Verified 03/07/20 15:28) NSAIDS (Non-Steroidal Anti-Inflamma [Nsaids] Allergy (Verified 03/07/20 15:28) ciprofloxacin [From Cipro] Adverse Reaction (Verified 03/07/20 15:28) Iodinated Contrast Media Adverse Reaction (Verified 03/07/20 15:28) levofloxacin [From Levaquin] Adverse Reaction (Verified 03/07/20 15:28) nitrofurantoin Adverse Reaction (Verified 03/07/20 15:28) Past Medical History - Social History Family history: None - Past Medical History Cardiac Medical History: Reports: Hx Hypercholesterolemia Pulmonary Medical History: Reports: Hx COPD Endocrine Medical History: Reports: Hx Hypothyroidism - After having her thyroid removed for cancer in October, Renal/ Medical History: Reports: Hx Kidney Stones. Denies: Hx Peritoneal Dialysis Malignancy Medical History: Reports: Hx Breast Cancer GI Medical History: Reports: Hx Gastroesophageal Reflux Disease, Hx Hiatal Hernia Musculoskeltal Medical History: Reports Hx Arthritis, Reports Hx Multiple Sclerosis - per pt although the lp'S were negative Psychiatric Medical History: Reports: Hx Anxiety Past Surgical History: Reports: Hx Appendectomy, Hx Bowel Surgery, Hx Section, Hx Cholecystectomy, Hx Hysterectomy, Hx Mastectomy, Hx Orthopedic Surgery - left rotator cuff, Hx Thyroid Surgery, Hx Urinary Tract Surgery - BLADDER POLYPS REMOVED - Immunizations Immunizations up to date: Yes Hx Diphtheria, Pertussis, Tetanus Vaccination: Yes Physical Exam - Vital signs Vitals: Temp Pulse Resp BP Pulse Ox 97.8 F 62 16 135/57 H 99 03/07/20 15:22 03/07/20 15:22 03/07/20 15:22 03/07/20 15:22 03/07/20 15:22 Course - Vital Signs Vital signs: Temp Pulse Resp BP Pulse Ox 97.8 F 62 16 135/57 H 99 03/07/20 15:22 03/07/20 15:22 03/07/20 15:22 03/07/20 15:22 03/07/20 15:22 Doctor's Discharge - Discharge Referrals: CARLENE BAKER MD [Primary Care Provider] - Follow up as needed
[2020-03-07 16:01] LABS: ABSOLUTE EOSINOPHILS # (AUTO) 0.1 10^3/uL (0.0-0.6); ABSOLUTE LYMPHOCYTES (AUTO) 2.3 10^3/uL (0.5-4.7); ABSOLUTE MONOCYTES (AUTO) 0.4 10^3/uL (0.1-1.4); ABSOLUTE NEUT (AUTO) 2.2 10^3/uL (1.7-8.2); BASOPHILS % (AUTO) 0.5 % (0-2); EOSINOPHILS % (AUTO) 2.9 % (0-6); HEMATOCRIT 42.6 % (36.0-47.0); HEMOGLOBIN 15.1 g/dL (12.0-15.5); LYMPHOCYTES % (AUTO) 45.6 % (13-45); MEAN CORPUSCULAR HEMOGLOBIN 34.2 pg (27.0-33.4); MEAN CORPUSCULAR HGB CONC 35.5 g/dL (32.0-36.0); MEAN CORPUSCULAR VOLUME 96 fl (80-97); MONOCYTES % (AUTO) 7.8 % (3-13); PLATELET COUNT 228 10^3/uL (150-450); RED BLOOD COUNT 4.43 10^6/uL (3.72-5.28); RED CELL DISTRIBUTION WIDTH 13.5 % (11.5-14.0); SEGMENTED NEUTROPHILS % (AUTO) 43.2 % (42-78); TOTAL CELLS COUNTED % (AUTO) 100 %
[2020-03-07 16:04] LABS: APPEARANCE,URINE SLIGHTLY-CLOUDY; BILIRUBIN,URINE NEGATIVE (NEGATIVE); COLOR,URINE YELLOW; GLUCOSE, URINE NEGATIVE (NEGATIVE); KETONES,URINE NEGATIVE (NEGATIVE); LEUKOCYTE ESTERASE,URINE MODERATE (NEGATIVE); NITRITE,URINE NEGATIVE (NEGATIVE); PROTEIN,URINE NEGATIVE (NEGATIVE); UROBILINOGEN,URINE NEGATIVE mg/dL (<2.0)
[2020-03-07 16:20] LABS: ALBUMIN 4.6 g/dL (3.5-5.0); ALKALINE PHOSPHATASE 78 U/L (38-126); ANION GAP 8 (5-19); ASPARTATE AMINO TRANSFERASE 31 U/L (14-36); BILIRUBIN,TOTAL 0.5 mg/dL (0.2-1.3); BLOOD UREA NITROGEN 35 mg/dL (7-20); CALCIUM 9.7 mg/dL (8.4-10.2); CARBON DIOXIDE 28 mmol/L (22-30); CHLORIDE 102 mmol/L (98-107); GLUCOSE 86 mg/dL (75-110); POTASSIUM 4.2 mmol/L (3.6-5.0); TOTAL PROTEIN 7.5 g/dL (6.3-8.2)
--- NOTE | 2020-03-07 16:28 | RADIOLOGY REPORT (SQ) ---
EXAM DESCRIPTION: ACUTE ABDOMEN SERIES IMAGES COMPLETED DATE/TIME: 03/07/2020 4:02 pm REASON FOR STUDY: Abdominal pain/constipation COMPARISON: AP view of the abdomen from 11/27/2019 an AP view of the chest from 01/19/2020. NUMBER OF VIEWS: Three views. TECHNIQUE: Frontal chest, supine abdomen and upright/decubitus abdomen radiographic images acquired. LIMITATIONS: None. FINDINGS: CHEST: The cardiomediastinal silhouette and pulmonary vasculature are within normal limits . There is no consolidation, pleural effusion or pneumothorax. FREE AIR: None. BOWEL GAS PATTERN: No dilated loops of bowel or differential air-fluid levels. CALCIFICATIONS: None. HARDWARE: Cholecystectomy clips. SOFT TISSUES: No abnormality. BONES: No acute fracture. OTHER: No other finding. IMPRESSION: 1. COPD without a superimposed acute cardiopulmonary process. 2. Nonobstructive bowel gas pattern. TECHNICAL DOCUMENTATION: JOB ID: [id number] 2010 [employer]- All Rights Reserved Reading location - IP/workstation name: [email or web address]
--- NOTE | 2020-03-07 18:08 | ER Document Report ---
ED General - General Chief Complaint: Constipation Stated Complaint: CONSTIPATION Time Seen by Provider: 03/07/20 15:32 Primary Care Provider: CARLENE BAKER MD [Primary Care Provider] - Follow up as needed Mode of Arrival: Ambulatory Notes: 69-year-old female with a history of gastroparesis presenting today with constipation. States she does not know the last time she had a true bowel mov ement. Has trialed multiple [id number] medications to relieve her constipation without relief of symptoms is experiencing mild abdominal pain. Has a history of a bowel obstruction. Patient reports she is straining to use the bathroom. Denies any current bright red blood per rectum or melena. She also has a history of a urorectal fistula. Denies any fevers chills shortness of breath chest pain or additional symptoms. TRAVEL OUTSIDE OF THE [place] IN LAST 30 DAYS: No - Related Data Allergies/Adverse Reactions: Sulfa (Sulfonamide Antibiotics) Allergy (Severe, Verified 03/07/20 15:28) heart beats very fast cephalexin [From Keflex] Allergy (Verified 03/07/20 15:28) latex Allergy (Verified 03/07/20 15:28) NSAIDS (Non-Steroidal Anti-Inflamma [Nsaids] Allergy (Verified 03/07/20 15:28) ciprofloxacin [From Cipro] Adverse Reaction (Verified 03/07/20 15:28) Iodinated Contrast Media Adverse Reaction (Verified 03/07/20 15:28) levofloxacin [From Levaquin] Adverse Reaction (Verified 03/07/20 15:28) nitrofurantoin Adverse Reaction (Verified 03/07/20 15:28) Home Medications: synthroid, simvastatin, several vitamins Past Medical History - General Information source: Patient - Social History Smoking Status: Former Smoker Chew tobacco use (# tins/day): No Frequency of alcohol use: None Drug Abuse: None Family History: Reviewed & Not Pertinent Patient has homicidal ideation: No - Past Medical History Cardiac Medical History: Reports: Hx Hypercholesterolemia, Hx Hypertension Pulmonary Medical History: Reports: Hx COPD Endocrine Medical History: Reports: Hx Hypothyroidism - After having her thyroid removed for cancer in October, Renal/ Medical History: Reports: Hx Kidney Stones. Denies: Hx Peritoneal Dialysis Malignancy Medical History: Reports: Hx Breast Cancer GI Medical History: Reports: Hx Gastroesophageal Reflux Disease, Hx Hiatal Hernia Musculoskeletal Medical History: Reports Hx Arthritis, Reports Hx Multiple Sclerosis - per pt although the lp'S were negative Psychiatric Medical History: Reports: Hx Anxiety Past Surgical History: Reports: Hx Abdominal Surgery - SBO fistula, Hx Appendec walter, Hx Bowel Surgery, Hx Section, Hx Cholecystectomy, Hx Hysterectomy, Hx Mastectomy, Hx Orthopedic Surgery - left rotator cuff, Hx Thyroid Surgery, Hx Urinary Tract Surgery - BLADDER POLYPS REMOVED - Immunizations Immunizations up to date: Yes Hx Diphtheria, Pertussis, Tetanus Vaccination: Yes Hx Pneumococcal Vaccination: 10/02/10 Review of Systems - Review of Systems Constitutional: No symptoms reported EENT: No symptoms reported Cardiovascular: No symptoms reported Respiratory: No symptoms reported Gastrointestinal: See HPI Musculoskeletal: Back pain Physical Exam - Vital signs Vitals: Temp Pulse Resp BP Pulse Ox 97.8 F 62 16 135/57 H 99 03/07/20 15:22 03/07/20 15:22 03/07/20 15:22 03/07/20 15:22 03/07/20 15:22 Interpretation: Normal - Notes Notes: Adult General: GENERAL: Alert, interacts well. No acute distress HEAD: Normocephalic, atraumatic EYES: Pupils equal, round and reactive to light. ENT: Airway patent. NECK: Full range of motion. Supple. Trachea midline. LUNGS: Clear to auscultation bilaterally, no wheezes, rales, or rhonchi. No respiratory distress. Nontender chest wall. HEART: Regular rate and rhythm. No murmurs, rubs or gallops. ABDOMEN: Soft, nontender. Nondistended. Bowel sounds present in all 4 quadrants. GENITOURINARY: Deferred EXTREMITIES: Moves all 4 extremities spontaneously. BACK: Moves all extremities with full range of motion. NEUROLOGICAL: Alert and oriented x3. Normal speech. PSYCH: Normal affect, normal mood. SKIN: Warm, dry, normal turgor. No rashes or lesions noted. Course - Re-evaluation Re-evalutation: 03/07/20 19:13 Abdominal series shows COPD without acute pulmonary process and nonobstructive bowel gas. Patient reports that after the enema she felt continued mild lower abdominal discomfort. She was provided anti-gas medication and afterwards she reports no abdominal pain or feelings of distention at this time. Patient denies any suprapubic pain or pain with urination. Her constipation and bowel gas are likely due to her gastroparesis. Discussed with patient use of anti-gas medication to help control her symptoms. She can use [id number] simethicone to treat her symptoms. Recommend patient follow-up her GI specialist and her PCM. She is in agreement with plan. And verbalizes understanding of instructions and plan. - Vital Signs Vital signs: Temp Pulse Resp BP Pulse Ox 98.2 F 62 12 110/59 L 99 03/07/20 19:06 03/07/20 19:06 03/07/20 19:06 03/07/20 19:06 03/07/20 19:06 - Laboratory Result Diagrams: 03/07/20 15:55 03/07/20 15:55 Laboratory results interpreted by me: 03/07/20 03/07/20 03/07/20 15:45 15:55 15:55 MCH 34.2 H Lymph % (Auto) 45.6 H BUN 35 H Lipase 495.9 H Ur Leukocyte Esterase MODERATE H Urine Ascorbic Acid 40 H Discharge - Discharge Clinical Impression: Bloating Constipation Qualifiers: Constipation type: slow transit constipation Qualified Code(s): K59.01 - Slow transit constipation Condition: Stable Disposition: HOME, SELF-CARE Instructions: Constipation ([facility]) Additional Instructions: You have been treated for constipation and bloating. You may take OTC simethicone for your symptoms. Follow-up with your primary care provider or GI specialist as soon as possible. Return to the ER if you develop worsening symptoms or development of new symptoms. Referrals: CARLENE BAKER MD [Primary Care Provider] - Follow up as needed
[2020-03-07] MEDS ORDERED: SIMETHICONE 80 MG TAB.CHEW PO ONE (18:28)
[2020-03-07 19:07] VITALS: BP 110/59
== END 2020-03-07 19:27 | disposition home or self-care (01) ==
LOC: ER 15:18
DX: K59.01 Slow transit constipation (principal); I10 Essential (primary) hypertension; J44.9 Chronic obstructive pulmonary disease, unspecified; E78.00 Pure hypercholesterolemia, unspecified; E89.0 Postprocedural hypothyroidism; Z79.899 Other long term (current) drug therapy; Z85.3 Personal history of malignant neoplasm of breast; Z87.891 Personal history of nicotine dependence; Z88.2 Allergy status to sulfonamides; Z88.1 Allergy status to other antibiotic agents; Z91.040 Latex allergy status
CPT/HCPCS: 36415; 74022; 80053; 81001; 83690; 85025; 99283

== ENCOUNTER → 2020-06-22 | Outpatient (CLI) | payer BC ==
--- NOTE | 2020-06-22 13:01 | RADIOLOGY REPORT (SQ) ---
EXAM DESCRIPTION: SHOULDER LEFT 2 OR MORE VIEWS IMAGES COMPLETED DATE/TIME: 06/22/2020 11:24 am REASON FOR STUDY: LEFT ANTERIOR SHOULDER PAIN; PAIN OF LEFT CLAVICLE M25.512 PAIN IN LEFT SHOULDER M89.8X1 OTHER SPECIFIED DISORDERS OF BONE, SHOULDER COMPARISON: None. NUMBER OF VIEWS: Three view. TECHNIQUE: Internal rotation, external rotation, and Y view images acquired of the left shoulder. LIMITATIONS: None. FINDINGS: MINERALIZATION: Normal. BONES: No acute fracture. No worrisome bone lesions. No significant osteophytes. GLENOHUMERAL JOINT: No significant findings. ACROMIOCLAVICULAR JOINT: No large osteophytes. SOFT TISSUES: No calcifications. VISUALIZED RIBS, SPINE, AND LUNG: No other significant finding. OTHER: No other significant finding. IMPRESSION: NEGATIVE STUDY OF THE LEFT SHOULDER. NO EXPLANATION FOR PAIN. TECHNICAL DOCUMENTATION: JOB ID: [id number] 2010 [employer]- All Rights Reserved Reading location - IP/workstation name: [email or web address]
--- NOTE | 2020-06-22 13:02 | RADIOLOGY REPORT (SQ) ---
EXAM DESCRIPTION: CLAVICLE LEFT IMAGES COMPLETED DATE/TIME: 06/22/2020 11:24 am REASON FOR STUDY: LEFT ANTERIOR SHOULDER PAIN; PAIN OF LEFT CLAVICLE M25.512 PAIN IN LEFT SHOULDER M89.8X1 OTHER SPECIFIED DISORDERS OF BONE, SHOULDER COMPARISON: None. NUMBER OF VIEWS: Two views. TECHNIQUE: Frontal and angled images were acquired of the left clavicle. LIMITATIONS: None. FINDINGS: MINERALIZATION: Normal. BONES: No acute fracture or dislocation. No worrisome bone lesions. No significant osteophytes. SOFT TISSUES: No obvious swelling or foreign body. OTHER: No other significant finding. IMPRESSION: NEGATIVE STUDY OF THE LEFT CLAVICLE. NO EXPLANATION FOR PAIN. TECHNICAL DOCUMENTATION: JOB ID: [id number] 2010 [employer]- All Rights Reserved Reading location - IP/workstation name: [email or web address]
== END ==
LOC: OD 10:56
PROVIDERS: ATTEND Physician Assistant
DX: M25.512 Pain in left shoulder (principal); M89.8X1 Other specified disorders of bone, shoulder

== ENCOUNTER 2020-07-09 08:08 | Emergency (ER) | payer BC ==
--- NOTE | 2020-07-09 09:53 | ER Document Report ---
ED GI/ - General Chief Complaint: Pain With Urination Stated Complaint: PAINFUL URINATION,DARK URINE Time Seen by Provider: 07/09/20 09:43 Primary Care Provider: MYKEL PATEL PA [NO LOCAL MD] - Follow up as needed Notes: 70-year-old woman presenting to the emergency department with a complaint of dysuria, frequency and urgency. She has had a history of urinary tract infections in the past. She is allergic to sulfa medications and does not want to take Keflex. She states that Augmentin is been the medication that has worked best for her and she took it little over a month ago for similar episode. She states she called her doctor's office and was told that she could not be seen this week and that if she had a problem she should probably go to the emergency department. She denies fever, chills, nausea or vomiting. TRAVEL OUTSIDE OF THE [place] IN LAST 30 DAYS: No - Related Data Allergies/Adverse Reactions: Sulfa (Sulfonamide Antibiotics) Allergy (Severe, Verified 07/09/20 08:23) heart beats very fast cephalexin [From Keflex] Allergy (Verified 07/09/20 08:23) latex Allergy (Verified 07/09/20 08:23) NSAIDS (Non-Steroidal Anti-Inflamma [Nsaids] Allergy (Verified 07/09/20 08:23) ciprofloxacin [From Cipro] Adverse Reaction (Verified 07/09/20 08:23) Iodinated Contrast Media Adverse Reaction (Verified 07/09/20 08:23) levofloxacin [From Levaquin] Adverse Reaction (Verified 07/09/20 08:23) nitrofurantoin Adverse Reaction (Verified 07/09/20 08:23) Home Medications: SIMVASTATIN. LEVOTHYROXINE Past Medical History - Social History Smoking Status: Former Smoker Chew tobacco use (# tins/day): No Frequency of alcohol use: Rare Drug Abuse: None Family History: Reviewed & Not Pertinent Patient has homicidal ideation: No - Past Medical History Cardiac Medical History: Reports: Hx Hypercholesterolemia, Hx Hypertension Pulmonary Medical History: Reports: Hx COPD Endocrine Medical History: Reports: Hx Hypothyroidism - After having her thyroid removed for cancer in October, Renal/ Medical History: Reports: Hx Kidney Stones. Denies: Hx Peritoneal Dialysis Malignancy Medical History: Reports: Hx Breast Cancer GI Medical History: Reports: Hx Gastroesophageal Reflux Disease, Hx Hiatal Hernia Musculoskeletal Medical History: Reports Hx Arthritis, Reports Hx Multiple Sclerosis - per pt although the lp'S were negative Psychiatric Medical History: Reports: Hx Anxiety Past Surgical History: Reports: Hx Abdominal Surgery - SBO fistula, Hx Appendectomy, Hx Bowel Surgery, Hx Section, Hx Cholecystectomy, Hx Hysterectomy, Hx Mastectomy, Hx Orthopedic Surgery - left rotator cuff, Hx Thyroid Surgery, Hx Urinary Tract Surgery - BLADDER POLYPS REMOVED - Immunizations Immunizations up to date: Yes Hx Diphtheria, Pertussis, Tetanus Vaccination: Yes Hx Pneumococcal Vaccination: 10/02/10 Review of Systems - Review of Systems Notes: Constitutional: Negative for fever. HENT: Negative for sore throat. Eyes: Negative for visual changes. Cardiovascular: Negative for chest pain. Respiratory: Negative for shortness of breath. Gastrointestinal: Negative for abdominal pain, vomiting or diarrhea. Genitourinary: The HPI Musculoskeletal: Negative for back pain. Skin: Negative for rash. Neurological: Negative for headaches, weakness or numbness. 10 point ROS negative except as marked above and in HPI. Physical Exam - Vital signs Vitals: Temp Pulse Resp BP Pulse Ox 97.8 F 60 18 116/57 L 96 07/09/20 08:13 07/09/20 08:13 07/09/20 08:13 07/09/20 08:13 07/09/20 08:13 - Notes Notes: PHYSICAL EXAMINATION: Physical Exam: General: Well-nourished well-developed in no acute distress HEENT: NC/AT, pupils equal round and reactive to light, MM moist,nares clear, oropharynx clear, airway patent Neck: supple, no adenopathy, no masses. Good range of motion Lungs: clear, no wheezing, no rales no rhonchi CVS: Regular rate and rhythm no murmur gallop or rub Abdomen: Soft, active, nontender, + suprapubic tenderness, no masses, no hepatosplenomegaly Back: No CVA tenderness Ext: No edema, clubbing or cyanosis. Neuro: Alert and responsive, moving all 4 extremities on command, cranial nerves intact, no focal findings Skin: Intact no open lesions, no rash PSYCH: Normal mood, normal affect. Course - Re-evaluation Re-evalutation: 07/09/20 12:14 Patient had urinary urgency and frequency with UTIs in the past. She was given a prescription for Pyridium, Augmentin 875, I have asked her to follow-up with her primary care doctor regarding further treatment. - Vital Signs Vital signs: Temp Pulse Resp BP Pulse Ox 97.8 F 60 18 116/57 L 96 07/09/20 08:24 07/09/20 08:13 07/09/20 08:13 07/09/20 08:13 07/09/20 08:13 - Laboratory Laboratory results interpreted by me: 07/09/20 09:45 Leukocyte Esterase Rfl TRACE H Urine Ascorbic Acid 20 H Discharge - Discharge Clinical Impression: Dysuria Urinary tract infection Qualifiers: Urinary tract infection type: site unspecified Hematuria presence: without hematuria Qualified Code(s): N39.0 - Urinary tract infection, site not specified Condition: Good Disposition: HOME, SELF-CARE Instructions: Urinary Tract Infection ([facility]) Additional Instructions: You were seen in the emergency department today with urinary symptoms of frequency, urgency and burning. You are given a prescription for Augmentin and Pyridium please take these medications as prescribed, please push fluids while taking these medications. Please follow-up with your primary care doctor as needed HOME CARE INSTRUCTIONS & INFORMATION: Thank you for choosing us for your medical needs. We hope you're satisfied with the care you received. After you leave, you must properly care for your problem and, at the same time, observe its progress. Any condition can change. Some illnesses can change rapidly over hours or days. If your condition worsens, return to the Emergency Department or see your physician promptly. ABOUT YOUR X-RAYS AND EKG'S: If you had an EKG or X-rays taken, they have been read by the Emergency Physician. The X-rays and EKG's will also be read by a Radiologist or Lidar Scientist within 24 hours. If discrepancies are noted, you will be notified by telephone. Please be certain the ED has a correct telephone number & address where you can be reached. Also, realize that some fractures or abnormalities do not show up on initial X-rays. If your symptoms continue, see your physician. ABOUT YOUR LABORATORY TEST: If you had laboratory tests, the results have been reviewed by the Emergency Physician. Some test results (for example cultures) may not be available for several days. You will be contacted if any test result shows you need additional treatment. Please be certain the ED has a correct telephone number and address where you can be reached. ABOUT YOUR MEDICATIONS: You will receive instructions on how to take your medicine on the prescription label you receive. Additional information may be provided by the Pharmacy. If you have questions afterwards, call the ED for clarification or further instructions. Some prescribed medications may cause drowsiness. Do not perform tasks such as driving a car or operating machinery without consulting your Pharmacist. If you feel you need a refill of pain medication, your condition will need re-evaluation. Please do not call for a refill of any medication. ABOUT YOUR SIGNATURE: Signature of this document acknowledges to followin. Understanding that you received emergency treatment and that you may be released before al medical problems are known or treated. Please be certain the ED has a correct phone number & address where you can be reached. 2. Acknowledgement that you will arrange for follow-up care as recommended. 3. Authorization for the Emergency Physician to provide information to your follow-up Physician in order to maximize your care. AT ANY TIME, IF YOUR SYMPTOMS CHANGE SIGNIFICANTLY OR WORSEN OR YOU DEVELOP NEW SYMPTOMS, RETURN TO THE EMERGENCY DEPARTMENT IMMEDIATELY FOR RE-EVALUATION. OUR GOAL IS TO PROVIDE EXCELLENT MEDICAL CARE! WE HOPE THAT WE HAVE MET YOUR EXPECTATIONS DURING YOUR EMERGENCY DEPARTMENT VISIT AND THAT YOU FEEL YOU HAVE RECEIVED EXCELLENT CARE! Prescriptions: Amoxicillin/Potassium Clav [Augmentin 875-125 Tablet] 1 tab PO NOW #14 tablet Phenazopyridine HCl [Pyridium 200 mg Tablet] 200 mg PO TID PRN #15 tablet PRN Reason: Bladder Spasms Referrals: MYKEL PATEL PA [NO LOCAL MD] - Follow up as needed
[2020-07-09 10:22] LABS: APPEARANCE,URINE CLEAR; BILIRUBIN,URINE NEGATIVE (NEGATIVE); COLOR,URINE YELLOW; GLUCOSE, URINE NEGATIVE (NEGATIVE); KETONES,URINE NEGATIVE (NEGATIVE); PROTEIN,URINE NEGATIVE (NEGATIVE); UROBILINOGEN,URINE NEGATIVE mg/dL (<2.0)
[2020-07-09 12:21] VITALS: BP 95/50
== END 2020-07-09 12:26 | disposition home or self-care (01) ==
LOC: ER 08:08
DX: N39.0 Urinary tract infection, site not specified (principal); I10 Essential (primary) hypertension; E78.00 Pure hypercholesterolemia, unspecified; E89.0 Postprocedural hypothyroidism; Z79.899 Other long term (current) drug therapy; Z87.891 Personal history of nicotine dependence; Z88.2 Allergy status to sulfonamides; Z88.1 Allergy status to other antibiotic agents; Z91.040 Latex allergy status; Z88.8 Allergy status to other drugs, medicaments and biological substances
CPT/HCPCS: 36415; 81001; 87086; 87088; 87186; 99283

== ENCOUNTER 2020-07-19 10:27 | Day surgery (SDC) | payer BC ==
[~2020-07-19 10:27] MED LIST: CHONDR SU A NA/HYALUR INTRAOC KIT (SURGICARE) ONE; DORZOLAMIDE HCL 2%/TIMOLOL MALEAT 0.5% OPH SOLN 10 ML OD PRN; EPINEPHRINE INJ/PF 1 MG/1 ML AMPULE ONE; FENTANYL CITRATE INJ/PF 100 MCG/2 ML AMPUL ONE; KETOROLAC TROMETHAMINE 0.45% 4 DROP/0.4 ML DROPERETTE OD PRN; LIDOCAINE 1%/PHENYLEPHRINE 1.5% 1 ML VIAL ONE; MIDAZOLAM 2 MG/2 ML INJ ONE; PREDNISOLONE ACETATE 1% OPH SUSP 5 ML OD PRN
[2020-07-19] MEDS: TETRACAINE HCL 0.5% OPH SOLN 4 ML OD PRN ×3 (10:37→11:09)
[2020-07-19] MEDS: CYCLOPENTOLATE 0.2%/PHENYLEPHRINE 1% OPH SOLN 2 ML OD PRN ×3 (10:38→11:04)
[2020-07-19] MEDS: BESIFLOXACIN HCL 0.6% OPH SUSP 5 ML BOTTLE OD PRN ×3 (10:38→11:25)
[2020-07-19] MEDS: TROPICAMIDE 1% OPH SOLN 15 ML OD PRN ×3 (10:38→11:04)
[2020-07-19] MEDS ORDERED: MIDAZOLAM 2 MG/2 ML INJ ONE (11:07)
--- NOTE | 2020-07-19 13:02 | Operative Report ---
Operative Report-[facility] Operative Report: DATE OF SURGERY: 07/19/2020 PREOPERATIVE DIAGNOSIS: Cataract, right eye POSTOPERATIVE DIAGNOSIS: Cataract, right eye OPERATION: Cataract extraction with insertion of an IOL of the right eye. Intraocular Lens Model: [20.5 SN 60 WF lens] Underwent surgery for difficulty seeing the television SURGEON: Red Millan MD ANESTHESIA: Topical PROCEDURE: After obtaining appropriate consent, the patient's right eye was prepped and draped in a sterile fashion as well as the surgeon in the sterile manner and cataract surgery was started. First a paracentesis blade was used to make a side-port incision. Viscoelastic was used to inflate the anterior chamber. Next a 2.4 mm incision was made with a 2.4 mm blade, clear corneal temporarily. A continuous capsulorrhexis was made using a cystotome and Utrata forceps. Following this hydrodissection was carried out to make the keya fully loose and mobile and it was rotated. Following this, a divide and conquer technique was used to phacoemulsify the keya. The remaining cortex was removed with an irrigation/aspiration. Provisc was instilled into the capsular bag to inflate the bag. The intraocular lens was placed. The remaining viscoelastic material was removed with irrigation/aspiration. Following this, the incision was found to be watertight. Besivance and Cosopt was instilled into the eye and a protective shield was placed over the eye. The patient was reurned to the postoperative recovery in a stable condition.
== END 2020-07-19 12:24 | disposition home or self-care (01) ==
LOC: SC 10:27
PROVIDERS: ATTEND Internal Medicine
DX: H25.13 Age-related nuclear cataract, bilateral (principal); H04.123 Dry eye syndrome of bilateral lacrimal glands; J44.9 Chronic obstructive pulmonary disease, unspecified; E78.00 Pure hypercholesterolemia, unspecified; B02.8 Zoster with other complications; H43.813 Vitreous degeneration, bilateral; H01.001 Unspecified blepharitis right upper eyelid; H01.004 Unspecified blepharitis left upper eyelid; Z85.850 Personal history of malignant neoplasm of thyroid; Z88.3 Allergy status to other anti-infective agents; Z88.2 Allergy status to sulfonamides; Z79.899 Other long term (current) drug therapy; Z79.82 Long term (current) use of aspirin; Z91.040 Latex allergy status; Z87.891 Personal history of nicotine dependence
CPT/HCPCS: 66984; V2632; J2250; J3490 ×2; J0171; 142; J3010

== ENCOUNTER 2020-08-02 06:40 | Day surgery (SDC) | payer BC, OTHER ==
[~2020-08-02 06:40] MED LIST changes: -CHONDR SU A NA/HYALUR INTRAOC KIT (SURGICARE) ONE; -DORZOLAMIDE HCL 2%/TIMOLOL MALEAT 0.5% OPH SOLN 10 ML OD PRN; +DORZOLAMIDE HCL 2%/TIMOLOL MALEAT 0.5% OPH SOLN 10 ML OS PRN; -EPINEPHRINE INJ/PF 1 MG/1 ML AMPULE ONE; -FENTANYL CITRATE INJ/PF 100 MCG/2 ML AMPUL ONE; -KETOROLAC TROMETHAMINE 0.45% 4 DROP/0.4 ML DROPERETTE OD PRN; +KETOROLAC TROMETHAMINE 0.45% 4 DROP/0.4 ML DROPERETTE OS PRN; -LIDOCAINE 1%/PHENYLEPHRINE 1.5% 1 ML VIAL ONE; -MIDAZOLAM 2 MG/2 ML INJ ONE; -PREDNISOLONE ACETATE 1% OPH SUSP 5 ML OD PRN; +PREDNISOLONE ACETATE 1% OPH SUSP 5 ML OS PRN
[2020-08-02] MEDS: CYCLOPENTOLATE 0.2%/PHENYLEPHRINE 1% OPH SOLN 2 ML OS PRN ×3 (07:03→07:23)
[2020-08-02] MEDS: TROPICAMIDE 1% OPH SOLN 15 ML OS PRN ×3 (07:03→07:23)
[2020-08-02] MEDS: BESIFLOXACIN HCL 0.6% OPH SUSP 5 ML BOTTLE OS PRN ×3 (07:03→08:20)
[2020-08-02] MEDS: TETRACAINE HCL 0.5% OPH SOLN 4 ML OS PRN ×3 (07:04→08:02)
[2020-08-02] MEDS ORDERED: MIDAZOLAM 2 MG/2 ML INJ ONE (07:06)
[2020-08-02] MEDS ORDERED: CHONDR SU A NA/HYALUR INTRAOC KIT (SURGICARE) ONE (07:11)
[2020-08-02] MEDS ORDERED: EPINEPHRINE INJ/PF 1 MG/1 ML AMPULE ONE (07:11)
[2020-08-02] MEDS ORDERED: LIDOCAINE 1%/PHENYLEPHRINE 1.5% 1 ML VIAL ONE (07:11)
[2020-08-02] MEDS ORDERED: EPHEDRINE SULFATE INJ 50 MG/1 ML AMPULE ONE (08:59)
--- NOTE | 2020-08-02 12:33 | Operative Report ---
Operative Report-[facility] Operative Report: DATE OF SURGERY: 08/02/2020 PREOPERATIVE DIAGNOSIS: Cataracts, left eye POSTOPERATIVE DIAGNOSIS: Cataract, left eye OPERATION: Cataract extraction with insertion of an IOL of the left eye. Intraocular Lens Model: [20.5 diopter SN 60 WF] Reason for surgery was unable to read small print SURGEON: Red Millan MD ANESTHESIA: Topical PROCEDURE: After obtaining appropriate consent, the patient's left eye was prepped and draped in a sterile fashion as well as the surgeon in the sterile manner and cataract surgery was started. First a paracentesis blade was used to make a side-port incision. Viscoelastic was used to inflate the anterior chamber. Next a 2.4 mm incision was made with a 2.4 mm blade, clear corneal temporarily. A continuous capsulorrhexis was made using a cystotome and Utrata forceps. Following this hydrodissection was carried out to make the lens fully loose and mobile and it was rotated 90 degrees. Following this, a divide and conquer technique was used to phacoemulsify the lens. The remaining cortex was removed with an irrigation/aspiration. Provisc was instilled into the capsular bag to inflate the bag.The intraocular lens was placed. The remaining viscoelastic material was removed with irrigation/aspiration. Following this, the incision was found to be watertight. Besivance and Cosopt was instilled into the eye and a protective shield was placed over the eye. The patient was returned to the postoperative recovery in a stable condition.
== END 2020-08-02 09:33 | disposition home or self-care (01) ==
LOC: SC 06:40
PROVIDERS: ATTEND Internal Medicine
DX: H25.12 Age-related nuclear cataract, left eye (principal); Z96.1 Presence of intraocular lens; Z87.891 Personal history of nicotine dependence; J44.9 Chronic obstructive pulmonary disease, unspecified; E78.00 Pure hypercholesterolemia, unspecified; E07.9 Disorder of thyroid, unspecified; Z85.850 Personal history of malignant neoplasm of thyroid
CPT/HCPCS: 66984; V2632; J2250; J3490 ×3; J0171; 142

== ENCOUNTER 2020-09-16 15:25 | Emergency (ER) | payer BC ==
--- NOTE | 2020-09-16 15:55 | ER Document Report ---
ED Medical Screen (RME) - General Chief Complaint: Abdominal Pain Stated Complaint: ABDOMINAL PAIN Primary Care Provider: MYKEL PATEL PA [Primary Care Provider] - Follow up as needed TRAVEL OUTSIDE OF THE [place] IN LAST 30 DAYS: No - HPI Notes: 09/16/20 15:54 Rapid Medical Exam HPI: this is a 70yo female that presents to the ER c/o abdominal distension - pt says she was suppose to get an US this past week for abdominal distension to look at her liver b/c she has elevated liver enzymes- no hx of ETOH abuse. Pt has been losing weight recently. no hx of paracentesis. no n/v, fevers, chills, or chest pain. worsening sob, she has copd but her abdominal distension is causing worsening sob. easier to breathe when laying flat. also reports chronic dysuria. Physical Exam: GENERAL: Well-appearing, well-nourished and in no acute distress. HEAD: Atraumatic, normocephalic. ENT: Moist mucous membranes. RESP: Respirations even and unlabored CV- Regular rate. NEURO: No focal neurological deficits. Moves all extremities spontaneously and on command. GI- abdominal distension. My involvement in this patients care was limited to a rapid initial assessment. A comprehensive ED assessment and evaluation of the patient, analysis of test results, treatment, and completion of the medical decision making process will be performed by other ER providers. 09/16/20 15:55 - Related Data Allergies/Adverse Reactions: Sulfa (Sulfonamide Antibiotics) Allergy (Severe, Verified 09/16/20 15:55) heart beats very fast cephalexin [From Keflex] Allergy (Verified 09/16/20 15:55) latex Allergy (Verified 09/16/20 15:55) ciprofloxacin [From Cipro] Adverse Reaction (Verified 09/16/20 15:55) floaters in eye Iodinated Contrast Media Adverse Reaction (Verified 09/16/20 15:55) nitrofurantoin Adverse Reaction (Verified 09/16/20 15:55) NSAIDS (Non-Steroidal Anti-Inflamma [Nsaids] Adverse Reaction (Verified 09/16/20 15:55) Past Medical History - Social History Family history: None - Past Medical History Cardiac Medical History: Reports: Hx Hypercholesterolemia Denies: Hx Heart Attack, Hx Hypertension Pulmonary Medical History: Reports: Hx COPD Denies: Hx Asthma Neurological Medical History: Denies: Hx Cerebrovascular Accident, Hx Seizures Endocrine Medical History: Reports: Hx Hypothyroidism - After having her thyroid removed for cancer in October, Renal/ Medical History: Reports: Hx Kidney Stones. Denies: Hx Peritoneal Dialysis Malignancy Medical History: Reports: Hx Breast Cancer GI Medical History: Reports: Hx Gastroesophageal Reflux Disease. Denies: Hx Hepatitis, Hx Hiatal Hernia, Hx Ulcer Musculoskeltal Medical History: Reports Hx Arthritis, Reports Hx Multiple Sclerosis - per pt although the lp'S were negative Psychiatric Medical History: Reports: Hx Anxiety Infectious Medical History: Denies: Hx Hepatitis Past Surgical History: Reports: Hx Abdominal Surgery - SBO fistula, Hx Appendectomy, Hx Bowel Surgery, Hx Section, Hx Cholecystectomy, Hx Hysterectomy, Hx Orthopedic Surgery - left rotator cuff, Hx Thyroid Surgery, Hx Urinary Tract Surgery - BLADDER POLYPS REMOVED. Denies: Hx Mastectomy, Hx Open Heart Surgery, Hx Pacemaker - Immunizations Immunizations up to date: Yes Hx Diphtheria, Pertussis, Tetanus Vaccination: Yes Physical Exam - Vital signs Vitals: Temp Pulse Resp BP Pulse Ox 98.6 F 75 18 105/72 96 09/16/20 15:36 09/16/20 15:36 09/16/20 15:36 09/16/20 15:36 09/16/20 15:36 Course - Vital Signs Vital signs: Temp Pulse Resp BP Pulse Ox 98.6 F 75 18 105/72 96 09/16/20 15:36 09/16/20 15:36 09/16/20 15:36 09/16/20 15:36 09/16/20 15:36 Doctor's Discharge - Discharge Referrals: MYKEL PATEL PA [Primary Care Provider] - Follow up as needed
[2020-09-16 16:44] LABS: ABSOLUTE EOSINOPHILS # (AUTO) 0.1 10^3/uL (0.0-0.6); ABSOLUTE MONOCYTES (AUTO) 0.7 10^3/uL (0.1-1.4); ABSOLUTE NEUT (AUTO) 5.3 10^3/uL (1.7-8.2); BASOPHILS % (AUTO) 0.5 % (0-2); HEMATOCRIT 44.4 % (36.0-47.0); HEMOGLOBIN 15.2 g/dL (12.0-15.5); LYMPHOCYTES % (AUTO) 25.2 % (13-45); MEAN CORPUSCULAR HEMOGLOBIN 33.3 pg (27.0-33.4); MEAN CORPUSCULAR HGB CONC 34.3 g/dL (32.0-36.0); MEAN CORPUSCULAR VOLUME 97 fl (80-97); MONOCYTES % (AUTO) 8.2 % (3-13); PLATELET COUNT 270 10^3/uL (150-450); RED BLOOD COUNT 4.57 10^6/uL (3.72-5.28); RED CELL DISTRIBUTION WIDTH 13.9 % (11.5-14.0); SEGMENTED NEUTROPHILS % (AUTO) 65.1 % (42-78); TOTAL CELLS COUNTED % (AUTO) 100 %; WHITE BLOOD COUNT 8.1 10^3/uL (4.0-10.5)
[2020-09-16 17:00] LABS: APPEARANCE,URINE CLEAR; BILIRUBIN,URINE NEGATIVE (NEGATIVE); COLOR,URINE YELLOW; GLUCOSE, URINE NEGATIVE (NEGATIVE); KETONES,URINE NEGATIVE (NEGATIVE); LEUKOCYTE ESTERASE,URINE TRACE (NEGATIVE); NITRITE,URINE NEGATIVE (NEGATIVE); PROTEIN,URINE NEGATIVE (NEGATIVE); URINE SPECIFIC GRAVITY 1.017; UROBILINOGEN,URINE NEGATIVE mg/dL (<2.0)
[2020-09-16 17:02] LABS: ALBUMIN 4.6 g/dL (3.5-5.0); ALKALINE PHOSPHATASE 90 U/L (38-126); ANION GAP 7 (5-19); ASPARTATE AMINO TRANSFERASE 39 U/L (14-36); BILIRUBIN,TOTAL 0.4 mg/dL (0.2-1.3); BLOOD UREA NITROGEN 44 mg/dL (7-20); CALCIUM 10.1 mg/dL (8.4-10.2); CARBON DIOXIDE 33 mmol/L (22-30); CHLORIDE 99 mmol/L (98-107); GLUCOSE 71 mg/dL (75-110); POTASSIUM 4.3 mmol/L (3.6-5.0); TOTAL PROTEIN 7.7 g/dL (6.3-8.2)
[2020-09-16 19:46] VITALS: BP 92/49
--- NOTE | 2020-09-16 19:46 | ER Document Report ---
ED GI/ - General Chief Complaint: Abdominal Pain Stated Complaint: ABDOMINAL PAIN Time Seen by Provider: 09/16/20 19:11 Primary Care Provider: MYKEL PATEL PA [Primary Care Provider] - Follow up as needed Notes: This 70-year-old woman presents to the emergency department with a complaint of epigastric abdominal pain and itching all over. She has been seen as an outpatient by Dr. Pope and evaluated for possible liver disease. She has an ultrasound scheduled for Thursday. Patient states that her itching was very severe and she is concerned that her abdomen feels bloated at times. TRAVEL OUTSIDE OF THE [place] IN LAST 30 DAYS: No - Related Data Allergies/Adverse Reactions: Sulfa (Sulfonamide Antibiotics) Allergy (Severe, Verified 09/16/20 15:55) heart beats very fast cephalexin [From Keflex] Allergy (Verified 09/16/20 15:55) latex Allergy (Verified 09/16/20 15:55) ciprofloxacin [From Cipro] Adverse Reaction (Verified 09/16/20 15:55) floaters in eye Iodinated Contrast Media Adverse Reaction (Verified 09/16/20 15:55) nitrofurantoin Adverse Reaction (Verified 09/16/20 15:55) NSAIDS (Non-Steroidal Anti-Inflamma [Nsaids] Adverse Reaction (Verified 09/16/20 15:55) Past Medical History - Social History Smoking Status: Former Smoker Frequency of alcohol use: Rare Drug Abuse: None Family History: Reviewed & Not Pertinent - Past Medical History Cardiac Medical History: Reports: Hx Hypercholesterolemia Denies: Hx Heart Attack, Hx Hypertension Pulmonary Medical History: Reports: Hx COPD Denies: Hx Asthma Neurological Medical History: Denies: Hx Cerebrovascular Accident, Hx Seizures Endocrine Medical History: Reports: Hx Hypothyroidism - After having her thyroid removed for cancer in October, Renal/ Medical History: Reports: Hx Kidney Stones. Denies: Hx Peritoneal Dialysis Malignancy Medical History: Reports: Hx Breast Cancer GI Medical History: Reports: Hx Gastroesophageal Reflux Disease. Denies: Hx Hepatitis, Hx Hiatal Hernia, Hx Ulcer Musculoskeletal Medical History: Reports Hx Arthritis, Reports Hx Multiple Sclerosis - per pt although the lp'S were negative Psychiatric Medical History: Reports: Hx Anxiety Infectious Medical History: Denies: Hx Hepatitis Past Surgical History: Reports: Hx Abdominal Surgery - SBO fistula, Hx Appendectomy, Hx Bowel Surgery, Hx Section, Hx Cholecystectomy, Hx Hysterectomy, Hx Orthopedic Surgery - left rotator cuff, Hx Thyroid Surgery, Hx Urinary Tract Surgery - BLADDER POLYPS REMOVED. Denies: Hx Mastectomy, Hx Open Heart Surgery, Hx Pacemaker - Immunizations Immunizations up to date: Yes Hx Diphtheria, Pertussis, Tetanus Vaccination: Yes Hx Pneumococcal Vaccination: 10/02/10 Physical Exam - Vital signs Vitals: Temp Pulse Resp BP Pulse Ox 98.6 F 75 18 105/72 96 09/16/20 15:36 09/16/20 15:36 09/16/20 15:36 09/16/20 15:36 09/16/20 15:36 Course - Re-evaluation Re-evalutation: 09/16/20 19:44 I have reviewed the lab findings with the patient and stated that we can get a CT scan of the abdomen and pelvis performed tonight. The patient states that she really was more concerned about her blood work and would like to now go home. She does not want to have the scan done now as she is scheduled for procedure on Thursday. Since she is in no extreme condition and has no established emergency I am discharging her home. - Vital Signs Vital signs: Temp Pulse Resp BP Pulse Ox 98.6 F 75 18 105/72 96 09/16/20 15:36 09/16/20 15:36 09/16/20 15:36 09/16/20 15:36 09/16/20 15:36 - Laboratory Result Diagrams: 09/16/20 16:24 09/16/20 16:24 Laboratory results interpreted by me: 09/16/20 09/16/20 16:24 16:24 Carbon Dioxide 33 H BUN 44 H Est GFR (MDRD) Non-Af 56 L Glucose 71 L AST 39 H ALT 41 H Lipase 373.5 H Ur Leukocyte Esterase TRACE H Urine Ascorbic Acid 40 H Discharge - Discharge Clinical Impression: Pruritus, Abdominal pain Condition: Good Disposition: HOME, SELF-CARE Instructions: Abdominal Pain ([facility]) Additional Instructions: You were seen in the emergency department with itching and abdominal discomfort. If the itching continues the use of an antihistamine such as Benadryl may be useful in treating the symptoms. Please follow-up with your primary care doctor and follow-up with the scheduled study on Thursday. If your symptoms are worsening or if you have other concerns you may return to the emergency department for further evaluation and treatment HOME CARE INSTRUCTIONS & INFORMATION: Thank you for choosing us for your medical needs. We hope you're satisfied with the care you received. After you leave, you must properly care for your problem and, at the same time, observe its progress. Any condition can change. Some illnesses can change rapidly over hours or days. If your condition worsens, return to the Emergency Department or see your physician promptly. ABOUT YOUR X-RAYS AND EKG'S: If you had an EKG or X-rays taken, they have been read by the Emergency Physician. The X-rays and EKG's will also be read by a Radiologist or Dural Mechanic within 24 hours. If discrepancies are noted, you will be notified by telephone. Please be certain the ED has a correct telephone number & address where you can be reached. Also, realize that some fractures or abnormalities do not show up on initial X-rays. If your symptoms continue, see your physician. ABOUT YOUR LABORATORY TEST: If you had laboratory tests, the results have been reviewed by the Emergency Physician. Some test results (for example cultures) may not be available for several days. You will be contacted if any test result shows you need additional treatment. Please be certain the ED has a correct telephone number and address where you can be reached. ABOUT YOUR MEDICATIONS: You will receive instructions on how to take your medicine on the prescription label you receive. Additional information may be provided by the Pharmacy. If you have questions afterwards, call the ED for clarification or further instructions. Some prescribed medications may cause drowsiness. Do not perform tasks such as driving a car or operating machinery without consulting your Pharmacist. If you feel you need a refill of pain medication, your condition will need re-evaluation. Please do not call for a r efill of any medication. ABOUT YOUR SIGNATURE: Signature of this document acknowledges to followin. Understanding that you received emergency treatment and that you may be released before al medical problems are known or treated. Please be certain the ED has a correct phone number & address where you can be reached. 2. Acknowledgement that you will arrange for follow-up care as recommended. 3. Authorization for the Emergency Physician to provide information to your follow-up Physician in order to maximize your care. AT ANY TIME, IF YOUR SYMPTOMS CHANGE SIGNIFICANTLY OR WORSEN OR YOU DEVELOP NEW SYMPTOMS, RETURN TO THE EMERGENCY DEPARTMENT IMMEDIATELY FOR RE-EVALUATION. OUR GOAL IS TO PROVIDE EXCELLENT MEDICAL CARE! WE HOPE THAT WE HAVE MET YOUR EXPECTATIONS DURING YOUR EMERGENCY DEPARTMENT VISIT AND THAT YOU FEEL YOU HAVE RECEIVED EXCELLENT CARE! Referrals: MYKEL PATEL PA [Primary Care Provider] - Follow up as needed
--- NOTE | 2020-09-17 08:13 | EKG REPORT ---
SEVERITY:- BORDERLINE ECG - SINUS RHYTHM BORDERLINE LEFT AXIS DEVIATION LOW VOLTAGE THROUGHOUT : Confirmed by: Shanta Ewing 17-Sep-2020 08:12:43
== END 2020-09-16 19:49 | disposition home or self-care (01) ==
LOC: ER 15:25
DX: L29.9 Pruritus, unspecified (principal); R10.9 Unspecified abdominal pain; R10.13 Epigastric pain; R14.0 Abdominal distension (gaseous); Z88.2 Allergy status to sulfonamides; Z88.1 Allergy status to other antibiotic agents; Z88.8 Allergy status to other drugs, medicaments and biological substances; Z87.891 Personal history of nicotine dependence
CPT/HCPCS: 36415; 80053; 81001; 83690; 85025; 93005; 93010; 99284

== ENCOUNTER → 2020-09-19 | Outpatient (CLI) | payer BC ==
--- NOTE | 2020-09-19 11:47 | RADIOLOGY REPORT (SQ) ---
EXAM DESCRIPTION: U/S ABDOMEN LIMITED W/O DOP IMAGES COMPLETED DATE/TIME: 09/19/2020 10:50 am REASON FOR STUDY: ABNORMAL LEVELS OF OTHER SERUM ENZYMES R74.8 ABNORMAL LEVELS OF OTHER SERUM ENZYM ES COMPARISON: 12/19/2013 TECHNIQUE: Dynamic and static grayscale images acquired of the abdomen and recorded on PACS. Additio nal selected color Doppler and spectral images recorded. LIMITATIONS: None. FINDINGS: PANCREAS: No masses. Visualized pancreatic duct normal caliber. LIVER: No masses. Echotexture normal. LIVER VASCULATURE: Normal directional flow of the main portal vein and hepatic veins. GALLBLADDER: Surgically absent. ULTRASOUND-DETECTED HERNANDES'S SIGN: Not applicable. INTRAHEPATIC DUCTS AND COMMON DUCT: CBD and intrahepatic ducts normal caliber. No filling defects. INFERIOR VENA CAVA: Normal flow. AORTA: No aneurysm. RIGHT KIDNEY: Normal size measuring 8.8 cm. Normal echogenicity. No solid or suspicious masses. No h ydronephrosis. No calcifications. PERITONEAL AND RIGHT PLEURAL SPACE: No ascites or effusions. OTHER: No other significant findings. IMPRESSION: Status post cholecystectomy. Otherwise unremarkable right upper quadrant ultrasound. TECHNICAL DOCUMENTATION: JOB ID: [id number] [employer]- All Rights Reserved Reading location - IP/workstation name: [email or web address]
== END ==
LOC: RAD 09:25
PROVIDERS: ATTEND Physician Assistant
DX: R74.8 Abnormal levels of other serum enzymes (principal)
CPT/HCPCS: 76705

== ENCOUNTER 2020-09-27 09:37 | Emergency (ER) | payer BC ==
--- NOTE | 2020-09-27 10:32 | ER Document Report ---
ED Medical Screen (RME) - General Chief Complaint: Urinary Problem Stated Complaint: URINARY PROBLEM/ABDOMINAL PAIN Time Seen by Provider: 09/27/20 10:23 Primary Care Provider: MYKEL PATEL PA [Primary Care Provider] - Follow up as needed TRAVEL OUTSIDE OF THE [place] IN LAST 30 DAYS: No - HPI Notes: 09/27/20 10:30 70-year-old female presents to ED for evaluation of multiple medical complaints. Patient states that she is concerned that she may have a urinary tract infection, abdominal distention, and is concerned she may also have an upper respiratory infection. Patient notes that she has had dysuria and urgency with frequency. Also notes abdominal distention. States that she has been evaluated for liver pathology which was negative. She is concerned that it may be due to retained stool. Notes a history of gastroparesis that is not due to diabetes. Denies fever or chills. Denies other complaints. - Related Data Allergies/Adverse Reactions: Sulfa (Sulfonamide Antibiotics) Allergy (Severe, Verified 09/16/20 15:55) heart beats very fast cephalexin [From Keflex] Allergy (Verified 09/16/20 15:55) latex Allergy (Verified 09/16/20 15:55) ciprofloxacin [From Cipro] Adverse Reaction (Verified 09/16/20 15:55) floaters in eye Iodinated Contrast Media Adverse Reaction (Verified 09/16/20 15:55) nitrofurantoin Adverse Reaction (Verified 09/16/20 15:55) NSAIDS (Non-Steroidal Anti-Inflamma [Nsaids] Adverse Reaction (Verified 09/16/20 15:55) Past Medical History - Social History Chew tobacco use (# tins/day): No Frequency of alcohol use: None Drug Abuse: None Family history: None - Past Medical History Cardiac Medical History: Reports: Hx Hypercholesterolemia Denies: Hx Heart Attack, Hx Hypertension Pulmonary Medical History: Reports: Hx COPD Denies: Hx Asthma Neurological Medical History: Denies: Hx Cerebrovascular Accident, Hx Seizures Endocrine Medical History: Reports: Hx Hypothyroidism - After having her thyroid removed for cancer in October, Renal/ Medical History: Reports: Hx Kidney Stones. Denies: Hx Peritoneal Dialysis Malignancy Medical History: Reports: Hx Breast Cancer GI Medical History: Reports: Hx Gastroesophageal Reflux Disease. Denies: Hx Hepatitis, Hx Hiatal Hernia, Hx Ulcer Musculoskeltal Medical History: Reports Hx Arthritis, Reports Hx Multiple Sclerosis - per pt although the lp'S were negative Psychiatric Medical History: Reports: Hx Anxiety Infectious Medical History: Denies: Hx Hepatitis Past Surgical History: Reports: Hx Abdominal Surgery - SBO fistula, Hx Appendectomy, Hx Bowel Surgery, Hx Section, Hx Cholecystectomy, Hx Hysterectomy, Hx Orthopedic Surgery - left rotator cuff, Hx Thyroid Surgery, Hx Urinary Tract Surgery - BLADDER POLYPS REMOVED. Denies: Hx Mastectomy, Hx Open Heart Surgery, Hx Pacemaker - Immunizations Immunizations up to date: Yes Hx Diphtheria, Pertussis, Tetanus Vaccination: Yes Physical Exam - Vital signs Vitals: Temp Pulse BP Pulse Ox 97.7 F 68 109/45 L 97 09/27/20 09:41 09/27/20 09:41 09/27/20 09:41 09/27/20 09:41 General: No acute distress. Alert and oriented x3. Sitting comfortably in a stretcher. Heart: Regular rate and rhythm. S1,S2. No murmurs, rubs, or gallops. Lungs: Unable to hear lung sounds well as patient is wearing multiple layers which she cannot remove in triage. Abdomen: Soft, nontender to palpation, distended. Positive bowel sounds in all 4 quadrants. No hepatosplenomegaly. No masses. No CVA tenderness bilaterally. Neuro: GCS 15. Moving all extremities without discomfort. Psych: Mood and affect anxious. Course - Vital Signs Vital signs: Temp Pulse Resp BP Pulse Ox 97.7 F 68 109/45 L 97 09/27/20 09:41 09/27/20 09:41 09/27/20 09:41 09/27/20 09:41 Doctor's Discharge - Discharge Referrals: MYKEL PATEL PA [Primary Care Provider] - Follow up as needed
[2020-09-27 11:10] LABS: ABSOLUTE EOSINOPHILS # (AUTO) 0.1 10^3/uL (0.0-0.6); ABSOLUTE LYMPHOCYTES (AUTO) 1.6 10^3/uL (0.5-4.7); ABSOLUTE MONOCYTES (AUTO) 0.3 10^3/uL (0.1-1.4); ABSOLUTE NEUT (AUTO) 1.6 10^3/uL (1.7-8.2); BASOPHILS % (AUTO) 1.1 % (0-2); EOSINOPHILS % (AUTO) 2.2 % (0-6); HEMOGLOBIN 14.4 g/dL (12.0-15.5); LYMPHOCYTES % (AUTO) 43.7 % (13-45); MEAN CORPUSCULAR HEMOGLOBIN 33.1 pg (27.0-33.4); MEAN CORPUSCULAR HGB CONC 34.3 g/dL (32.0-36.0); MEAN CORPUSCULAR VOLUME 97 fl (80-97); MONOCYTES % (AUTO) 8.6 % (3-13); PLATELET COUNT 253 10^3/uL (150-450); RED BLOOD COUNT 4.34 10^6/uL (3.72-5.28); RED CELL DISTRIBUTION WIDTH 13.8 % (11.5-14.0); SEGMENTED NEUTROPHILS % (AUTO) 44.4 % (42-78); TOTAL CELLS COUNTED % (AUTO) 100 %; WHITE BLOOD COUNT 3.6 10^3/uL (4.0-10.5)
[2020-09-27 11:27] LABS: ALBUMIN 4.4 g/dL (3.5-5.0); ALKALINE PHOSPHATASE 68 U/L (38-126); ANION GAP 5 (5-19); ASPARTATE AMINO TRANSFERASE 42 U/L (14-36); BILIRUBIN,TOTAL 0.6 mg/dL (0.2-1.3); BLOOD UREA NITROGEN 32 mg/dL (7-20); CARBON DIOXIDE 33 mmol/L (22-30); CHLORIDE 101 mmol/L (98-107); GLUCOSE 96 mg/dL (75-110); POTASSIUM 4.4 mmol/L (3.6-5.0); TOTAL PROTEIN 7.5 g/dL (6.3-8.2)
[2020-09-27 12:21] LABS: APPEARANCE,URINE CLEAR; BILIRUBIN,URINE NEGATIVE (NEGATIVE); COLOR,URINE YELLOW; GLUCOSE, URINE NEGATIVE (NEGATIVE); KETONES,URINE NEGATIVE (NEGATIVE); LEUKOCYTE ESTERASE,URINE TRACE (NEGATIVE); NITRITE,URINE NEGATIVE (NEGATIVE); PROTEIN,URINE NEGATIVE (NEGATIVE); URINE SPECIFIC GRAVITY 1.009; UROBILINOGEN,URINE NEGATIVE mg/dL (<2.0)
--- NOTE | 2020-09-27 13:16 | ER Document Report ---
ED General - General Chief Complaint: Urinary Problem Stated Complaint: URINARY PROBLEM/ABDOMINAL PAIN Time Seen by Provider: 09/27/20 10:23 Primary Care Provider: MYKEL PATEL PA [Primary Care Provider] - Follow up in 3-5 days Notes: Patient is a 70-year-old female that comes emergency department for multiple complaints. She states that she is having swelling in her abdomen, she feels like she has "rotting stool" that is stuck, she states that she has been taking Ex-Lax with only minimal results and feels like she is very constipated. She also reports some discomfort with urination and frequency. She also states that she has a sore throat with more nasal congestion than usual although she does have chronic nasal congestion and postnasal drip. She denies fever/chills, difficulty breathing, chest pain, or specific abdominal pain. She denies nausea or vomiting. Past medical history of thyroidectomy, hyperlipidemia, "gastroparesis" but no history of diabetes, diagnostic laparotomy. She lives at home. Patient also states she wants to be tested for COVID-19, she states her relative was exposed to someone who had COVID-19 but she feels like she should be tested because she cannot get the vaccine yet and because she is 70 years old. TRAVEL OUTSIDE OF THE [place] IN LAST 30 DAYS: No - Related Data Allergies/Adverse Reactions: Sulfa (Sulfonamide Antibiotics) Allergy (Severe, Verified 09/16/20 15:55) heart beats very fast cephalexin [From Keflex] Allergy (Verified 09/16/20 15:55) latex Allergy (Verified 09/16/20 15:55) ciprofloxacin [From Cipro] Adverse Reaction (Verified 09/16/20 15:55) floaters in eye Iodinated Contrast Media Adverse Reaction (Verified 09/16/20 15:55) nitrofurantoin Adverse Reaction (Verified 09/16/20 15:55) NSAIDS (Non-Steroidal Anti-Inflamma [Nsaids] Adverse Reaction (Verified 09/16/20 15:55) Past Medical History - General Information source: Patient - Social History Smoking Status: Never Smoker Chew tobacco use (# tins/day): No Frequency of alcohol use: None Drug Abuse: None Lives with: Family Family History: Reviewed & Not Pertinent - Past Medical History Cardiac Medical History: Reports: Hx Hypercholesterolemia Denies: Hx Heart Attack, Hx Hypertension Pulmonary Medical History: Reports: Hx COPD Denies: Hx Asthma Neurological Medical History: Denies: Hx Cerebrovascular Accident, Hx Seizures Endocrine Medical History: Reports: Hx Hypothyroidism - After having her thyroid removed for cancer in October, Renal/ Medical History: Reports: Hx Kidney Stones. Denies: Hx Peritoneal Dialysis Malignancy Medical History: Reports: Hx Breast Cancer GI Medical History: Reports: Hx Gastroesophageal Reflux Disease. Denies: Hx Hepatitis, Hx Hiatal Hernia, Hx Ulcer Musculoskeletal Medical History: Reports Hx Arthritis, Reports Hx Multiple Sclerosis - per pt although the lp'S were negative Psychiatric Medical History: Reports: Hx Anxiety Infectious Medical History: Denies: Hx Hepatitis Past Surgical History: Reports: Hx Abdominal Surgery - SBO fistula, Hx Appendectomy, Hx Bowel Surgery, Hx Section, Hx Cholecystectomy, Hx Hysterectomy, Hx Orthopedic Surgery - left rotator cuff, Hx Thyroid Surgery, Hx Urinary Tract Surgery - BLADDER POLYPS REMOVED. Denies: Hx Mastectomy, Hx Open Heart Surgery, Hx Pacemaker - Immunizations Immunizations up to date: Yes Hx Diphtheria, Pertussis, Tetanus Vaccination: Yes Hx Pneumococcal Vaccination: 10/02/10 Review of Systems - Review of Systems Constitutional: See HPI EENT: See HPI Cardiovascular: No symptoms reported Respiratory: No symptoms reported Gastrointestinal: See HPI Genitourinary: No symptoms reported Female Genitourinary: No symptoms reported Musculoskeletal: No symptoms reported Skin: No symptoms reported Hematologic/Lymphatic: No symptoms reported Neurological/Psychological: No symptoms reported Physical Exam - Vital signs Vitals: Temp Pulse BP Pulse Ox 97.7 F 68 109/45 L 97 09/27/20 09:41 09/27/20 09:41 09/27/20 09:41 09/27/20 09:41 - Notes Notes: GENERAL: Alert, interacts well. No acute distress. Very slim HEAD: Normocephalic, atraumatic. EYES: Pupils equal, round, and reactive to light. Extraocular movements intact. ENT: Oral mucosa moist, tongue midline. Oropharynx unremarkable. Airway patent. Nares patent, sinuses non-tender, minimal congestion, ear canals unremarkable, TM's intact. NECK: Full range of motion. Supple. Trachea midline. No lymphadenopathy. LUNGS: Clear to auscultation bilaterally, no wheezes, rales, or rhonchi. No respiratory distress. Non-tender chest wall. HEART: Regular rate and rhythm. No murmur ABDOMEN: Soft, non-tender. Non-distended. Bowel sounds present in all 4 quadrants. No distention or rigidity GENITOURINARY: Deferred EXTREMITIES: Moves all 4 extremities spontaneously. No edema, normal radial and dorsalis pedis pulses bilaterally. No cyanosis. BACK: no cervical, thoracic, lumbar midline tenderness. No saddle anesthesia, normal distal neurovascular exam. Moves all extremities in full range of motion. NEUROLOGICAL: Alert and oriented x3. Normal speech. Cranial nerves II through XII grossly intact. Strength 5/5 in all extremities. PSYCH: Talks persistently and anxiously SKIN: Warm, dry, normal turgor. No rashes or lesions noted. Course - Re-evaluation Re-evalutation: Patient's abdomen is soft and benign. Lungs clear. Minimal congestion on exam. Vital signs unremarkable. CBC, chemistry unremarkable. Urine with a few white blood cells but unremarkable. Acute abdominal series unremarkable, no retained stools or concerning findings. Overall very low suspicion of concerning infection, patient looks good. Discussed follow-up and return precautions. Patient states understanding and agreement. Patient insists on dysuria and developing infection, as persistently for antibiotics, however she is allergic to a lot of these. Finally narrowed this down to having taken Augmentin in the past without difficulty. She was provided this after long discussion. Patient tested for COVID-19 because of constitutional symptoms and her age, discussed quarantine and expectations. Discussed follow-up and return cautions. Patient states understanding and agreement. - Vital Signs Vital signs: Temp Pulse Resp BP Pulse Ox 98.8 F 68 20 115/72 98 09/27/20 16:44 09/27/20 09:41 09/27/20 16:44 09/27/20 16:44 09/27/20 16:44 - Laboratory Results Result Diagrams: 09/27/20 10:49 09/27/20 10:49 Laboratory Results Interpreted: 09/27/20 09/27/20 09/27/20 10:49 10:49 10:49 WBC 3.6 L Absolute Neuts (auto) 1.6 L Carbon Dioxide 33 H BUN 32 H AST 42 H ALT 42 H Ur Leukocyte Esterase TRACE H Critical Laboratory Results Reviewed: No Critical Results - Radiology Results Critical Radiology Results Reviewed: No Critical Results Discharge - Discharge Clinical Impression: Urinary symptom or sign, Person under investigation for COVID-19 Abdominal pain Qualifiers: Abdominal location: generalized Qualified Code(s): R10.84 - Generalized abdo gabriela pain Pharyngitis Qualifiers: Pharyngitis/tonsillitis etiology: unspecified etiology Qualified Code(s): J02.9 - Acute pharyngitis, unspecified Condition: Stable Disposition: HOME, SELF-CARE Instructions: COVID-19 Guidance for Persons Under Investigation Additional Instructions: Your strep test is negative. You are being tested for COVID-19. Please quarantine while you are awaiting results, you will be given additional instructions with your results. Your x-ray of the abdomen does not show any constipation, retained stool, or concerning findings. Your general work-up is reassuring. We are treating you for a urinary tract infection based on your labs and symptoms. Follow-up with primary care. Return for any concerning symptoms including vomiting, spiking fevers, severe abdominal pain, or any other concerning or worsening symptoms. Prescriptions: Amoxicillin/Potassium Clav [Augmentin 875-125 Tablet] 1 tab PO BID 7 Days #14 tablet Referrals: MYKEL PATEL PA [Primary Care Provider] - Follow up in 3-5 days
--- NOTE | 2020-09-27 14:05 | RADIOLOGY REPORT (SQ) ---
EXAM DESCRIPTION: ACUTE ABDOMEN SERIES IMAGES COMPLETED DATE/TIME: 09/27/2020 1:52 pm REASON FOR STUDY: abd swelling COMPARISON: 03/07/2020 NUMBER OF VIEWS: Three views. TECHNIQUE: Frontal chest, supine abdomen and upright/decubitus abdomen radiographic images acquired. LIMITATIONS: None. FINDINGS: CHEST: Lungs clear of infiltrates. FREE AIR: None. No abnormal gas collections. BOWEL GAS PATTERN: Nonobstructive pattern. No dilated loops or air fluid levels. CALCIFICATIONS: No suspicious calcifications. HARDWARE: None in the abdomen. SOFT TISSUES: No gross mass or suggestion of organomegaly. BONES: No acute fracture. No worrisome bone lesions. OTHER: No other significant finding. IMPRESSION: NO RADIOGRAPHIC EVIDENCE FOR ACUTE ABDOMINAL DISEASE. TECHNICAL DOCUMENTATION: JOB ID: [id number] [email or web address]- All Rights Reserved Reading location - IP/workstation name: [email or web address]
[2020-09-27 16:49] VITALS: BP 115/72
== END 2020-09-27 16:49 | disposition home or self-care (01) ==
LOC: ER 09:37
DX: R10.84 Generalized abdominal pain (principal); J02.9 Acute pharyngitis, unspecified; R30.0 Dysuria; R09.81 Nasal congestion; R09.82 Postnasal drip; Z90.49 Acquired absence of other specified parts of digestive tract; Z90.710 Acquired absence of both cervix and uterus; Z88.2 Allergy status to sulfonamides; Z88.1 Allergy status to other antibiotic agents; Z91.040 Latex allergy status; Z20.828 Contact with and (suspected) exposure to other viral communicable diseases
CPT/HCPCS: 99284; 36415; 87070; 87086; 87880; 83690; 85025; 87088; 80053; 81001; 87186; 74022; U0003; C9803; 87635